=== PATIENT | male | born 1940 | race Caucasian/White ===

== ENCOUNTER 2018-06-18 01:00 | Outpatient (CLI) | payer OTHER, SELFPAY ==
--- NOTE | 2018-06-18 09:00 | DI.US_ITS ---
SYMPTOMS/DIAGNOSIS: H/O AAA REPAIR ULTRASOUND OF THE ABDOMINAL AORTA: Comparison is made with May,. Dilatation of the the [place] distal abdominal aorta measures maximally 4.3 cm, unchanged from the previous exam. 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 There is no evidence of rupture. IMPRESSION: Stable appearance of distal abdominal aortic aneurysm and endograft.
== END 2018-06-18 01:20 ==
PROVIDERS: PCP Family Medicine; Visit Provider Family Medicine
DX: I71.4 Abdominal aortic aneurysm, without rupture (principal); Z95.828 Presence of other vascular implants and grafts
CPT/HCPCS: 76775

== ENCOUNTER 2018-09-25 15:24 | Outpatient (CLI) | payer OTHER, SELFPAY ==
--- NOTE | 2018-09-25 12:00 | DI.RAD_ITS ---
SYMPTOMS/DIAGNOSIS: LOW BACK PAIN, RECENT FALLS, M54.5 LUMBAR SPINE: AP, lateral and bilateral oblique views. Most recent comparison examination of the lumbar spine is from a CT scan from 08/05/15. There is normal alignment of the lumbar spine. No spondylolysis or spondylolisthesis is seen. There are moderate degenerative changes seen at the lumbar spine with facet arthropathy and endplate osteophytes. There is a compression fracture deformity of the superior endplate of L 5 with loss of approximately 20% of the height of the vertebral body. This was not present on the examination from 2016. There is also compression fracture deformity involving the superior endplate of L 3 with loss of approximately 20% of the height which was not present on the prior examination. The acuity of these fractures is indeterminate. Vascular stent is seen in the distal aorta and iliac arteries. IMPRESSION: 1. Compression fracture deformities involving the superior endplates of L 3 and L 5. These were not present on the prior examination from 2016. If further imaging is warranted, an MRI should be considered for further evaluation. 2. Moderate degenerative changes in the lumbar spine.
== END 2018-09-25 15:44 ==
PROVIDERS: PCP Family Medicine; Visit Provider Family Medicine
DX: M54.5 Low back pain (principal); M48.56XD Collapsed vertebra, not elsewhere classified, lumbar region, subsequent encounter for fracture with routine healing; M47.816 Spondylosis without myelopathy or radiculopathy, lumbar region
CPT/HCPCS: 72110

== ENCOUNTER 2018-10-06 10:58 | Outpatient (CLI) | payer OTHER, SELFPAY ==
[2018-10-06 12:40] LABS: Abs Immature Grans 0.01 k/cumm (0.0-0.09); Absolute Basophil Count 0.02 k/cumm (0.0-0.2); Absolute Eosinophil Count 0.07 k/cumm (0.0-0.7); Absolute Lymphocyte Count 1.57 k/cumm (1.2-3.4); Absolute Monocyte Count 0.65 k/cumm (0.11-0.7); Absolute Neutrophil Count 4.94 k/cumm (1.2-6.7); Basophils % 0.3; HCT 39.6 % (40.0-50.0); HGB 13.1 g/dL (13.5-17.5); Immature Grans % 0.1; Lymphocytes % 21.6; Mean Corp. HGB Concentration 33.1 g/dL (32.0-36.0); Mean Corpuscular Hemoglobin 30.8 pg (27.0-33.0); Mean Platelet Volume 10.5 fL (8.0-11.0); Platelet Count 149 x1000/uL (130-400); RBC 4.26 m/cumm (4.50-6.00); RBC Distribution Width 14.1 % (11.8-14.1); White Blood Cell Count 7.26 k/cumm (4.4-10.8)
[2018-10-06 13:47] LABS: ALT 17 U/L (12-78); AST 15 U/L (15-37); Albumin 3.8 g/dL (3.4-5.0); Alkaline Phosphatase 124 U/L (46-116); Anion Gap 11.2 mmol/L (3-11); BUN 32 mg/dL (7-18); Bilirubin, Total 0.5 mg/dL (0.2-1.0); CO2 25.8 mmol/L (21.0-32.0); Calcium 9.2 mg/dL (8.5-10.1); Chloride 105 mmol/L (98-107); Estimated GFR 36.58 (mL/min/1.73m2); Glucose 97 mg/dL (70-100); Potassium 4.1 mmol/L (3.5-5.1); Sodium 142 mmol/L (136-145); TSH 1.99 uIU/mL (0.358-3.74); Total Protein 7.5 g/dL (6.4-8.2); Vitamin B12 457 pg/mL (193-986)
== END 2018-10-06 11:18 ==
PROVIDERS: PCP Family Medicine; Visit Provider Family Medicine
DX: R55 Syncope and collapse (principal); I10 Essential (primary) hypertension
CPT/HCPCS: 80053; 81003; 82607; 84443; 85025

== ENCOUNTER 2019-06-09 01:10 | Outpatient (CLI) | payer OTHER, SELFPAY ==
--- NOTE | 2019-06-09 08:57 | DI.US_ITS ---
EXAM: US AAA DIAGNOSTIC CLINICAL HISTORY: Z86.79 status post aaa repair 2015/pt asymptomatic, Z98.890 TECHNIQUE: Ultrasound performed using standard protocol. COMPARISON: CTA OF ABDOMEN AND PEL from 08/05/2015 AAA DIAGNOSTIC/FOLLOW UP from 05/31/2017 US AAA diagnostic from 06/18/2018 FINDINGS: The [place] vessel of the abdominal aorta was measured up to 4.2 cm. An endograft is again noted with diameter measuring 3.2 cm, not significantly changed. Iliac artery stents are also present, unchang ed, measuring 1.4 and 1.6 cm in diameter.. IMPRESSION: Stable appearance of bifurcated endograft and [place] abdominal aorta.
== END 2019-06-09 01:30 ==
PROVIDERS: PCP Family Medicine; Visit Provider Family Medicine
DX: Z86.79 Personal history of other diseases of the circulatory system (principal); Z95.828 Presence of other vascular implants and grafts
CPT/HCPCS: 76775

== ENCOUNTER 2019-08-29 12:08 | Inpatient (IN) | payer MEDICARE, OTHER, SELFPAY ==
[2019-08-29] VITALS (51 sets, daily range): BP systolic 135–197; BP diastolic 74–138; PULSE 75–89; RESP 14–27; TEMP 36.4–37.2; O2SAT 80–99
--- NOTE | 2019-08-29 12:15 | W.ED.GENAD ---
Discharge Plan Disposition Patient Disposition: [facility] INPATIENT Condition: Stable Discharge Details Chief Complaint: GenMedical Clinical Impression: Dizziness, Generalized weakness, Accelerated hypertension, Nausea Admit Date/Time: 08/29/19 17:31 Admit Provider: Lonnie Patton Attending Provider: Lonnie Patton Primary Care Provider: Amalia Villanueva ED Provider: Karla Goldstein Discharge Data Discharge Date/Time-TO BE ENTERED AT DEPARTURE: 08/29/19 18:45 Medical Decision Making 1245 -- 79-year-old male with a history of hypertension, hyperlipidemia, smoking presents for increasing weakness, frequent falls, nausea with dry heaving for the past few days. Patient states that he has had frequent falls and syncope for the past several months which initially was attributed to low blood pressure. Son states that removing patient's blood pressure medication initially improve the symptoms but now they have returned. He only takes Zocor and nabumetone for back pain. Patient also states that he is has had intermittent high and low blood pressure for the past few days. BP as high as 160/102. As low as ?/60. Patient states he has not had much of an appetite for the past few days. Son states that he has had strong smell of urine. Patient admits to anterior lower chest and upper abdominal pain after hitting his chest against a cabinet from a fall this week. He also admits to diffuse headache. He denies any extremity injury or pain. EKG on arrival notes a rate of 87, sinus with less than [address] depression in anterior lateral leads. No acute ST elevation. Able to find an old EKG from [facility] 2014 which noted normal sinus with no acute ST changes. Suspect patient dehydrated. Will obtain screening labs, CT head, neck, chest abdomen and pelvis to rule out acute fracture or abnormality. Will also obtain urinalysis, give fluids and a dose of Zofran. 1445 -- pt reassessed --states he feels slightly better. CT head and C-spine negative. Labs reviewed and no acute significant findings. Creatinine 2.06 at baseline. Troponin negative. Nursing attempted to ambulate patient earlier and he was significantly weak and requiring significant assistance. We will continue IV fluids and give a tray of food and reassess. CT chest and abdomen pending. 1545 -- CT chest and abdomen negative for acute findings. Attempted to ambulate patient and he complained of dizziness with movement. Will give a dose of meclizine and reassess. 1710 -- patient able to eat and attempted to ambulate and he was unable to get up due to weakness and dizziness. Will admit for observation, PT eval, and medication management of his blood pressure. 1725 -- discussed with hospitalist -accepts patient for admission. Medical Records Medical records reviewed: Yes I reviewed the patient's medical records. Imaging Data Radiologic Study: Radiologist's impression: CT Head Without Contrast Exam date and time: 08/29/2019 1:44 PM Age: 79 years old Clinical indication: Other: Headache, frequent falls, R/O acute findings TECHNIQUE: Imaging protocol: Computed tomography of the head without contrast. Radiation optimization: All CT scans at this facility use at least one of these dose optimization techniques: automated exposure control; mA and/or kV adjustment per patient size (includes targeted exams where dose is matched to clinical indication); or iterative reconstruction. COMPARISON: No relevant prior studies available. FINDINGS: Brain: No hemorrhage. No mass effect. No herniation. No abnormal extra-axial collection.There is mild diffuse heterogeneity of the white matter attenuation, consistent with chronic white matter ischemic changes. Ventricles: No ventriculomegaly. Bones/joints: No acute fracture. Sinuses: Visualized sinuses are unremarkable. No fluid levels. Mastoid air cells: Visualized mastoid air cells are well aerated. Soft tissues: Unremarkable. Vasculature: Atherosclerotic calcifications of the intracranial arteries. IMPRESSION: No acute intracranial abnormality. CT Cervical Spine Without Contrast Exam date and time: 08/29/2019 1:44 PM Age: 79 years old Clinical indication: Other: Headache, frequent falls, R/O acute findings TECHNIQUE: Imaging protocol: Computed tomography images of the cervical spine without contrast. Radiation optimization: All CT scans at this facility use at least one of these dose optimization techniques: automated exposure control; mA and/or kV adjustment per patient size (includes targeted exams where dose is matched to clinical indication); or iterative reconstruction. COMPARISON: No relevant prior studies available. FINDINGS: Vertebrae: No acute fracture. Normal alignment. Discs/Spinal canal/Neural foramina: Multilevel degenerative disc disease and facet hypertrophy of the cervical spine. No significant osseous spinal canal narrowing. There are multiple levels with significant neural foraminal osseous narrowing to include severe right C3-C4 and severe bilateral C5-C6. Soft tissues: Small benign appearing round calcification about the left vallecular. Likely related to some chronic process. Lungs: Lung apices are normal. IMPRESSION: 1. No acute findings. 2. Cervical spondylosis most severe at C3-C4 and C5-C6 with severe osseous neural foraminal narrowing as described above. CT Chest Without Contrast Exam date and time: 08/29/2019 1:50 PM Age: 79 years old Clinical indication: Other: S/P fall, b/l lower ribs/upper abd pain; Other: S/P fall, lower rib pain TECHNIQUE: Imaging protocol: Computed tomography of the chest without contrast. Radiation optimization: All CT scans at this facility use at least one of these dose optimization techniques: automated exposure control; mA and/or kV adjustment per patient size (includes targeted exams where dose is matched to clinical indication); or iterative reconstruction. COMPARISON: SC CHEST 2 VIEWS PA,LAT 06/01/2015 9:55 AM FINDINGS: Lungs: Mild panlobular emphysematous changes Subpleural interstitial densities may represent chronic lung changes. Moderate panlobular emphysematous changes Pleural space: Unremarkable. No pneumothorax. No pleural effusion. Heart: Coronary artery calcifications may indicate coronary artery disease. Aorta: Unremarkable. No aortic aneurysm. Lymph nodes: Unremarkable. No enlarged lymph nodes. Bones/joints: There may be mild compression fractures of the thoracic spine Soft tissues: Unremarkable. IMPRESSION: No acute process CT Abdomen And Pelvis Without Contrast Exam date and time: 08/29/2019 1:50 PM Age: 79 years old Clinical indication: Other: S/P fall, b/l lower ribs/upper abd pain; Other: S/P fall, lower rib pain TECHNIQUE: Imaging protocol: Computed tomography of the abdomen and pelvis without contrast. Radiation optimization: All CT scans at this facility use at least one of these dose optimization techniques: automated exposure control; mA and/or kV adjustment per patient size (includes targeted exams where dose is matched to clinical indication); or iterative reconstruction. COMPARISON: SC CHEST 2 VIEWS PA,LAT 06/01/2015 9:55 AM FINDINGS: Liver: 10 mm cyst left lobe of the liver Gallbladder and bile ducts: Normal. No calcified stones. No ductal dilation. Pancreas: Normal. No ductal dilation. Spleen: Normal. No splenomegaly. Adrenals: Normal. No mass. Kidneys and ureters: Normal. No hydronephrosis. Stomach and bowel: Unremarkable. No obstruction. No mucosal thickening. Appendix: Normal appendix Intraperitoneal space: Unremarkable. No free air. No significant fluid collection. Vasculature: Endovascular stent in the distal aorta and common iliac arteries. [place] aorta measures 3.3 x 3.5 cm.. Lymph nodes: Unremarkable. No enlarged lymph nodes. Bladder: Unremarkable as visualized. Reproductive: Unremarkable as visualized. Bones/joints: Broad-based disc bulge at L5/S1. Soft tissues: Unremarkable. IMPRESSION: 1. Endovascular stent in the distal aorta and common iliac arteries. [place] aorta measures 3.3 x 3.5 cm.. 2. Broad-based disc bulge at L5/S1. Recommend MRI if clinically indicated Lab Data Lab results reviewed: Yes I reviewed the patient's lab results. Labs: Laboratory Tests Range/Units 08/29/19 08/29/19 08/29/19 12:25 12:25 14:52 WBC (4.4-10.8) k/cumm 10.97 H RBC (4.50-6.00) m/cumm 4.27 L Hgb (13.5-17.5) g/dL 13.2 L Hct (40.0-50.0) % 38.3 L MCV (80-95) fL 89.7 MCH (27.0-33.0) pg 30.9 MCHC (32.0-36.0) g/dL 34.5 RDW (11.8-14.1) % 14.1 Plt Count (130-400) x1000/uL 129 L MPV (8.0-11.0) fL 10.0 Immature Gran % % 0.3 Neutrophils % 87.4 Lymphocytes % 6.8 Monocytes % 5.4 Eosinophils % 0.0 Basophils % 0.1 Absolute Neutrophils (1.2-6.7) k/cumm 9.59 H Absolute Lymphocytes (1.2-3.4) k/cumm 0.75 L Absolute Monocytes (0.11-0.7) k/cumm 0.59 Absolute Eosinophils (0.0-0.7) k/cumm 0.00 Absolute Basophils (0.0-0.2) k/cumm 0.01 Sodium (136-145) mmol/L 140 Potassium (3.5-5.1) mmol/L 4.3 Chloride (98-107) mmol/L 102 Carbon Dioxide (21.0-32.0) mmol/L 24.7 Anion Gap (3-11) mmol/L 13.3 H BUN (7-18) mg/dL 28 H Creatinine (0.70-1.30) mg/dL 2.06 H Estimated GFR/1.73 m2 (mL/min/1.73m2) 31.23 Glucose (74-106) mg/dL 129 H Calcium (8.5-10.1) mg/dL 8.7 Magnesium (1.8-2.4) mg/dL 2.1 Total Bilirubin (0.2-1.0) mg/dL 0.8 AST (15-37) U/L 23 ALT (16-63) U/L 17 Alkaline Phosphatase (46-116) U/L 122 H Troponin I (<0.06) ng/Ml < 0.05 Total Protein (6.4-8.2) g/dL 7.6 Albumin (3.4-5.0) g/dL 3.8 Urine Color (Yellow) Yellow Urine Clarity (Clear) Clear Urine pH (5-8) 6.0 Ur Specific [place] (1.005-1.025) >= 1.030 H Urine Protein (Negative) mg/dL 100 H Urine Ketones (Negative) mg/dL Negative Urine Blood (Negative) Moderate H Urine Nitrite (Negative) Negative Urine Bilirubin (Negative) Negative Urine Urobilinogen (Up TO 0.2) EU/dL 0.2 Ur Leukocyte Esterase (Negative) Negative Urine RBC (0-2) HPF 5-10 H Urine WBC (0-5) HPF 3-5 Ur Epithelial Cells (Negative) HPF Moderate Urine Crystals (Negative) HPF Negative Urine Bacteria (Negative) HPF Few Urine Casts (Negative) LPF 0-2 fine granular Urine Mucus (Negative) Negative Ur Culture Indicated? No/sq. contamination Urine Glucose (Negative) mg/dL 100 ECG Data Attestation: I personally reviewed and interpreted this ECG (s) as follows: Interpretation: Rate of 87, sinus, less than [address] depression noted in V4, V5 V6. No acute ST elevation. FL 160. QTc 420. QRS 80. HPI General Mode of arrival: EMS. Date/Time Provider Initiated Documentation: 08/29/19 12:29. Limitations to Documentation: other (Hard of hearing). Information obtained by: patient and family. History of Present Illness 79 year old M presents to the emergency department with the chief complaint of Generally weak, poor appetite, nausea/dry heaves, frequent falls, high BP, and is localized to the head. Patient reports no radiation. Patient started experiencing this day(s) (3) and it has been intermittent. No relieving factors improve symptom(s), Movement worsens symptoms . Patient notes headaches, loss of appetite, malaise, nausea/vomiting, syncope (Chronic) and weakness; denies rash, seizure and shortness of breath. Patient did receive the following treatments prior to arrival, none Related Data Home Medications Medication Instructions Recorded Confirmed simvastatin 10 mg tablet 10 mg PO HS #90 tab-cap 12/11/18 08/29/19 nabumetone 500 mg tablet 500 mg PO BID #60 tab 08/04/19 08/29/19 Previous Rx's Medication Instructions Recorded simvastatin 10 mg tablet 10 mg PO HS #90 tab-cap 12/11/18 nabumetone 500 mg tablet 500 mg PO BID #60 tab 08/04/19 Allergies Allergy/AdvReac Type Severity Reaction Status Date / Time Penicillins Allergy Intermediate HIVES Unverified 08/29/19 12:17 Review of Systems All systems reviewed & are unremarkable except as noted in HPI and below Constitutional Constitutional: Reports as per HPI, Denies chills, Denies fever(s), Reports frequent falls, Reports headache(s), Reports poor appetite and Reports weakness Eyes Eyes: Denies blurry vision ENT Ears, Nose, Mouth, and Throat: Denies dizziness, Reports headache(s), Denies sore throat and Denies throat swelling Cardiovascular Cardiovascular: Denies chest pain and Denies dyspnea Respiratory Respiratory: Denies cough and Denies dyspnea Gastrointestinal Gastrointestinal: Denies abdominal pain, Denies diarrhea, Reports nausea, Denies vomiting and Reports other (dry heaving) Genitourinary Genitourinary: Denies hematuria and Denies dysuria Musculoskeletal Musculoskeletal: Denies back pain and Denies numbness Integumentary/Breasts Skin/Breast: Denies lesions and Denies rash Neurologic Neurologic: Denies dizziness, Reports frequent falls, Reports headache(s), Denies focal weakness, Denies numbness and Reports weakness Allergic/Immunologic Allergic/Immunologic: Denies throat swelling [facility] Medical History (Updated 08/30/19 @ 00:12 by Lonnie Patton) CKD (chronic kidney disease) (Chronic) Essential hypertension (Inactive 09/25/13) Hyperlipidemia (Inactive 06/20/03) Smoker (Inactive) 50 year pack history Syncope (Chronic) Surgical History Extraction of cataract 10/2002 Status post AAA (abdominal aortic aneurysm) repair (Acute) Social History Smoking/Tobacco Use Status: Current every day Tobacco Type: cigarettes Tobacco: How many years used: 60 Quit status: not considering quitting Second Hand Exposure: Yes Alcohol Intake: never Caregiver/Support person: Yes Household members: other Details: Son Housing: house Communication Needs: Hard of Hearing Do you need help understanding health information?: Rarely Pets and animals: No Sexually active: No Do you think of yourself as: straight/heterosexual Current gender identity: male What is your relationship status?: How often do you talk on the phone with friends or family?: decline to answer How often do you get together with friends or relatives?: decline to answer How often do you attend voodoo or christian services?: decline to answer Do you belong to any clubs or organized social groups?: decline to answer Panel score (0-1 are the most socially isolated patients): 0 What type of physical activity do you participate in: none Frequency: does not exercise Carmen/Sikhism: No preference Special carmen needs: No Seatbelt use: always Drive 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 Exam Const General: cooperative, no acute distress and disheveled Orientation: alert and awake [facility] Head: normal to inspection, no palpable skull fracture, normocephalic and atraumatic Ears: hearing grossly normal bilaterally, external ears normal and TM's normal bilaterally General nose exam: external nose normal Face and sinus: normal facial exam Mouth: mucous membranes dry Teeth and gingiva: poor dentition Eyes General: appearance normal, both eyes and all related structures Eyelids: eyelids normal Pupils: PERRL EOM: EOM intact bilaterally Neck Neck: normal visual inspection Lymphatic: no lymphadenopathy noted Chest Chest: normal inspection of the chest Chest/axillae images: 1. Tenderness to palpation to midline and left inferior anterior chest. No crepitus, ecchymosis, erythema, edema, step-off, rash or lesions Resp Effort & Inspection: normal respiratory effort and able to speak in complete sentences Auscultation: clear to auscultation bilaterally Cardio Rate: regular rate Rhythm: regular rhythm GI Inspection: normal to inspection Palpation: soft, not firm, no guarding, no hepatosplenomegaly, no masses and tender in the epigastrum and in the LUQ Auscultation: hypoactive bowel sounds Back/Spine/Pelvis Cervical Spine: No cervical spinal tenderness Thoracic/Lumbar Spine: thoracic and lumbar spine normal to inspection, No thoracic spinal tenderness and No lumbar spinal tenderness Skin General skin exam: no rashes or lesions noted Neuro General: alert, awake, oriented x3 and other (Hard of hearing) Cognition: normal cognition Speech: speech normal Motor: muscle tone normal throughout Sensory Exam: no sensory deficits noted Extrem General: normal to inspection, full ROM and normal capillary refill Other: No pain in shoulders, elbows, wrists or hands, hips, knees or ankles with palpation or range of motion. Psych Appearance: grossly normal Mental Status: mental status grossly normal Speech and Movement: speech and movement normal Affect: normal affect Thought Process: normal
[2019-08-29 12:45] LABS: Abs Immature Grans 0.03 k/cumm (0.0-0.09); Absolute Basophil Count 0.01 k/cumm (0.0-0.2); Absolute Lymphocyte Count 0.75 k/cumm (1.2-3.4); Absolute Monocyte Count 0.59 k/cumm (0.11-0.7); Absolute Neutrophil Count 9.59 k/cumm (1.2-6.7); Basophils % 0.1; HCT 38.3 % (40.0-50.0); HGB 13.2 g/dL (13.5-17.5); Immature Grans % 0.3 %; Lymphocytes % 6.8; Mean Corp. HGB Concentration 34.5 g/dL (32.0-36.0); Mean Corpuscular Hemoglobin 30.9 pg (27.0-33.0); Mean Corpuscular Volume 89.7 fL (80-95); Monocytes % 5.4; Neutrophils % 87.4; Platelet Count 129 x1000/uL (130-400); RBC 4.27 m/cumm (4.50-6.00); RBC Distribution Width 14.1 % (11.8-14.1); White Blood Cell Count 10.97 k/cumm (4.4-10.8)
[2019-08-29 12:58] LABS: ALT 17 U/L (16-63); AST 23 U/L (15-37); Albumin 3.8 g/dL (3.4-5.0); Alkaline Phosphatase 122 U/L (46-116); Anion Gap 13.3 mmol/L (3-11); BUN 28 mg/dL (7-18); Bilirubin, Total 0.8 mg/dL (0.2-1.0); CO2 24.7 mmol/L (21.0-32.0); CREATININE 2.06 mg/dL (0.70-1.30); Calcium 8.7 mg/dL (8.5-10.1); Chloride 102 mmol/L (98-107); Estimated GFR 31.23 (mL/min/1.73m2); Glucose 129 mg/dL (74-106); Magnesium 2.1 mg/dL (1.8-2.4); Potassium 4.3 mmol/L (3.5-5.1); Sodium 140 mmol/L (136-145); Total Protein 7.6 g/dL (6.4-8.2)
[2019-08-29 13:02] LABS: Troponin I < 0.05 ng/Ml (<0.06)
[2019-08-29] MEDS: Normal Saline 500 ML IV ×2 (13:03→14:01)
[2019-08-29] MEDS: Ondansetron 4 MG/2 ML VIAL IVP (13:05)
--- NOTE | 2019-08-29 13:48 | DI.CT_ITS ---
EXAM: CT HEAD CERVICAL SPINE WO CT HEAD CERVICAL SPINE WO CLINICAL HISTORY: headache, frequent falls, r/o acute findings. headache, frequent falls, r/o acute findings TECHNIQUE: Imaging Protocol: Axial computed tomography images with coronal and sagittal reformatted images were created and reviewed COMPARISON: No exams were available for comparison FINDINGS: Head CT Ventricles and Extra axial spaces: Normal in size and morphology for the patient's age. Hemorrhage: None. Cerebral parenchyma: Normal. Midline shift: None. Brainstem/Cerebellum: Normal. Calvarium: Normal. Visualized Paranasal sinuses/Mastoids: Clear. IMPRESSION: No acute abnormality. FINDINGS: Cervical Spine CT BONES: Vertebral body heights are maintained. Intervertebral disc spaces are normal. Alignment is nor mal. There is no evidence of acute fracture. SOFT TISSUES: No paraspinal hematoma. The airway appears intact. Degenerative disc changes and facet degenerative changes are seen, greatest at C3-4 and C5-6 . IMPRESSION: Degenerative changes, no acute abnormality. DATA REPOSITORY: All CT scans at this facility are submitted to the National Radiology Data Registry (NRDR) Dose Index Registry (DIR) with the [employer] (ACR). RADIATION OPTIMIZATION: All CT scans at this facility use at least one of these dose optimization te chniques: automated exposure control; mA and/or kV adjustment per patient size (includes targeted exa ms where dose is matched to clinical indication); or iterative reconstruction.
--- NOTE | 2019-08-29 13:53 | DI.CT_ITS ---
EXAM: CT CHEST/ABD/PEL WO CLINICAL HISTORY: s/p fall, b/l lower ribs/upper abd pain TECHNIQUE: Without IV or oral contrast. COMPARISON: CTA OF ABDOMEN AND PEL from 08/05/2015 Lumbar Spine Complete from 09/25/2018 FINDINGS: Emphysematous and fibrotic changes are seen. There is honeycombing at the lung bases. There is no pneumothorax, pleural or pericardial effusions. Coronary artery calcifications are seen. The aorta is normal in diameter. No acute spine fractures are seen. There are mild compression deformities in the thoracic and lumbar spine. No rib fractures are identified. Aortoiliac stents are again noted within an aneurysm. There is no change in appearance or diameter. There is no free air or free fluid. There is no evidence of organ injury, bowel dilatation or wall thickening. The appendix appears normal. IMPRESSION: No acute posttraumatic abnormality.
[2019-08-29] MEDS: amLODIPine 5 MG TAB PO (14:01)
--- NOTE | 2019-08-29 14:55 | DI.VRAD_ITS ---
PROCEDURE INFORMATION: Exam: CT Head Without Contrast Exam date and time: 08/29/2019 1:44 PM Age: 79 years old Clinical indication: Other: Headache, frequent falls, R/O acute findings TECHNIQUE: Imaging protocol: Computed tomography of the head without contrast. Radiation optimization: All CT scans at this facility use at least one of these dose optimization techniques: automated exposure control; mA and/or kV adjustment per patient size (includes targeted exams where dose is matched to clinical indication); or iterative reconstruction. COMPARISON: No relevant prior studies available. FINDINGS: Brain: No hemorrhage. No mass effect. No herniation. No abnormal extra-axial collection.There is mild diffuse heterogeneity of the white matter attenuation, consistent with chronic white matter ischemic changes. Ventricles: No ventriculomegaly. Bones/joints: No acute fracture. Sinuses: Visualized sinuses are unremarkable. No fluid levels. Mastoid air cells: Visualized mastoid air cells are well aerated. Soft tissues: Unremarkable. Vasculature: Atherosclerotic calcifications of the intracranial arteries. IMPRESSION: No acute intracranial abnormality. PROCEDURE INFORMATION: Exam: CT Cervical Spine Without Contrast Exam date and time: 08/29/2019 1:44 PM Age: 79 years old Clinical indication: Other: Headache, frequent falls, R/O acute findings TECHNIQUE: Imaging protocol: Computed tomography images of the cervical spine without contrast. Radiation optimization: All CT scans at this facility use at least one of these dose optimization techniques: automated exposure control; mA and/or kV adjustment per patient size (includes targeted exams where dose is matched to clinical indication); or iterative reconstruction. COMPARISON: No relevant prior studies available. FINDINGS: Vertebrae: No acute fracture. Normal alignment. Discs/Spinal canal/Neural foramina: Multilevel degenerative disc disease and facet hypertrophy of the cervical spine. No significant osseous spinal canal narrowing. There are multiple levels with significant neural foraminal osseous narrowing to include severe right C3-C4 and severe bilateral C5-C6. Soft tissues: Small benign appearing round calcification about the left vallecular. Likely related to some chronic process. Lungs: Lung apices are normal. IMPRESSION: 1. No acute findings. 2. Cervical spondylosis most severe at C3-C4 and C5-C6 with severe osseous neural foraminal narrowing as described above. Dictated and Authenticated by: David White MD. Ordering:ELVIRA Acosta MD
[2019-08-29 15:00] LABS: Bilirubin Negative (Negative); Blood Moderate (Negative); Clarity Clear (Clear); Glucose 100 mg/dL (Negative); Ketones Negative (Negative); Leukocyte Esterase Negative (Negative); Nitrite Negative (Negative); Specific Gravity >= 1.030 (1.005-1.025); Urobilinogen 0.2 EU/dL (Up TO 0.2)
[2019-08-29] MEDS: Normal Saline 500 ML 1000 ML IV (15:11)
[2019-08-29 15:32] LABS: Bacteria Few HPF (Negative); C & S Indicated? No/Sq. Contamination; Casts 0-2 Fine Granular LPF (Negative); Crystals Negative HPF (Negative); Epithelial Cells Moderate HPF (Negative); Mucus Negative (Negative)
--- NOTE | 2019-08-29 15:36 | DI.VRAD_ITS ---
PROCEDURE INFORMATION: Exam: CT Chest Without Contrast Exam date and time: 08/29/2019 1:50 PM Age: 79 years old Clinical indication: Other: S/P fall, b/l lower ribs/upper abd pain; Other: S/P fall, lower rib pain TECHNIQUE: Imaging protocol: Computed tomography of the chest without contrast. Radiation optimization: All CT scans at this facility use at least one of these dose optimization techniques: automated exposure control; mA and/or kV adjustment per patient size (includes targeted exams where dose is matched to clinical indication); or iterative reconstruction. COMPARISON: SC CHEST 2 VIEWS PA,LAT 06/01/2015 9:55 AM FINDINGS: Lungs: Mild panlobular emphysematous changes Subpleural interstitial densities may represent chronic lung changes. Moderate panlobular emphysematous changes Pleural space: Unremarkable. No pneumothorax. No pleural effusion. Heart: Coronary artery calcifications may indicate coronary artery disease. Aorta: Unremarkable. No aortic aneurysm. Lymph nodes: Unremarkable. No enlarged lymph nodes. Bones/joints: There may be mild compression fractures of the thoracic spine Soft tissues: Unremarkable. IMPRESSION: No acute process PROCEDURE INFORMATION: Exam: CT Abdomen And Pelvis Without Contrast Exam date and time: 08/29/2019 1:50 PM Age: 79 years old Clinical indication: Other: S/P fall, b/l lower ribs/upper abd pain; Other: S/P fall, lower rib pain TECHNIQUE: Imaging protocol: Computed tomography of the abdomen and pelvis without contrast. Radiation optimization: All CT scans at this facility use at least one of these dose optimization techniques: automated exposure control; mA and/or kV adjustment per patient size (includes targeted exams where dose is matched to clinical indication); or iterative reconstruction. COMPARISON: SC CHEST 2 VIEWS PA,LAT 06/01/2015 9:55 AM FINDINGS: Liver: 10 mm cyst left lobe of the liver Gallbladder and bile ducts: Normal. No calcified stones. No ductal dilation. Pancreas: Normal. No ductal dilation. Spleen: Normal. No splenomegaly. Adrenals: Normal. No mass. Kidneys and ureters: Normal. No hydronephrosis. Stomach and bowel: Unremarkable. No obstruction. No mucosal thickening. Appendix: Normal appendix Intraperitoneal space: Unremarkable. No free air. No significant fluid collection. Vasculature: Endovascular stent in the distal aorta and common iliac arteries. [place] aorta measures 3.3 x 3.5 cm.. Lymph nodes: Unremarkable. No enlarged lymph nodes. Bladder: Unremarkable as visualized. Reproductive: Unremarkable as visualized. Bones/joints: Broad-based disc bulge at L5/S1. Soft tissues: Unremarkable. IMPRESSION: 1. Endovascular stent in the distal aorta and common iliac arteries. [place] aorta measures 3.3 x 3.5 cm.. 2. Broad-based disc bulge at L5/S1. Recommend MRI if clinically indicated Dictated and Authenticated by: Osmar Encarnacion MD. Ordering:ELVIRA Acosta MD
[2019-08-29] MEDS: Meclizine 25 MG TAB PO (15:53)
--- NOTE | 2019-08-29 16:32 | NUR.NOTE ---
15:35 Have attempted twice to ambulate patient. He sits on edge of bed and states he can't stand due to dizziness. MD aware and Meds given.
--- NOTE | 2019-08-29 17:30 | W.PM.HP.N ---
Date of service: 08/29/19 Time of Service: 17:30 Assessment and Plan Assessment and plan (1) Accelerated hypertension: Start date: 08/29/19 Status: Acute Assessment and plan: This is an 79-year-old gentleman who is here for generalized weakness and appetite loss with uncontrolled hypertension presently. He has no focalizing neurological findings other than nystagmus with probable vertigo and acute labyrinthitis as a cause of his symptoms. He is off his antihypertensives with frequent falls and fluctuating blood pressure in the recent past. This needs to be further evaluated but for now we will aggressively treat his hypertension which is persisted. This may be worsened by his discomfort but because of his presenting symptoms, we should consider MRI of the brain if his vertiginous symptoms persist with uncontrolled hypertension with possible CVA as cause of his presentation. This will be rediscussed in the morning. (2) Vertigo: Start date: 08/29/19 Status: Acute Assessment and plan: Patient appears to have nystagmus left lateral gaze and worsening sensation of the world spinning and falling to the left side as he moves prior to admission. This appears to be acute labyrinthitis of the pelvis uncontrolled hypertension and sudden onset of symptoms we should consider CVA with MRI to be rediscussed in the morning. For now we will support symptom control with meclizine and IV hydration because of his apparent recent decreased intake and fluid loss with nausea and dry heaving. (3) Nausea: Start date: 08/29/19 Status: Acute Assessment and plan: IV hydration with symptomatic care using IV Zofran. Patient does have chronic CKD which appears close to baseline but it appears slightly dry. (4) CKD (chronic kidney disease): Status: Chronic Assessment and plan: Patient is slightly higher than baseline and will have gentle IV hydration with close monitoring. We will start lisinopril for blood pressure control and watch renal function potassium closely. This may not be the best long-term medical therapy but acutely he has not responded to amlodipine alone and his heart rate is not markedly elevated with IV Lopressor to be used cautiously along with lisinopril dose given tonight and each evening if chosen to be continued. Qualifiers: Chronic kidney disease stage: stage 3 (moderate) Qualified Code(s): N18.3 - Chronic kidney disease, stage 3 (moderate) History of Present Illness History of Present Illness Chief Complaint: Dizziness with nausea and vomiting, uncontrolled blood pressure off meds Narrative: This is an 79-year-old male patient who has had problems with falls in the recent months having stopped his antihypertensives because of low blood pressure and slow heart rate. He began to have generalized weakness decreased appetite with nausea and dry heaves and feeling as if he was going to fall whenever he would move suddenly as if the world was spinning. He has had vertigo in the past but he describes it as a 1 day of occurrence where he would fall to one side. He has never had any documented CVAs by history. He denies any fever or diarrhea with his recent GI symptoms. Off his antihypertensive the last couple days he states his blood pressure has been all over the place. He would be high at one time and then low at another with no medications as mentioned. He had no other focalizing neurologic complaints other than vertigo and it seemed to be worse gazing to the left side. Denying chest pain or palpitations. He is hard of hearing. Review of Systems Narrative: 13 point review of systems otherwise unrevealing or overall stable. Patient has had no significant weight loss. [facility]LY [facility] Medical History Essential hypertension (Inactive 09/25/13) Hyperlipidemia (Inactive 06/20/03) Smoker (Inactive) 50 year pack history Syncope (Chronic) Surgical History Extraction of cataract 10/2002 Status post AAA (abdominal aortic aneurysm) repair (Acute) Social History Smoking/Tobacco Use Status: Current every day Tobacco Type: cigarettes Tobacco: How many years used: 60 Quit status: not considering quitting Second Hand Exposure: Yes Alcohol Intake: never Caregiver/Support person: Yes Household members: other Details: Son Housing: house Communication Needs: Hard of Hearing Do you need help understanding health information?: Rarely Pets and animals: No Sexually active: No Do you think of yourself as: straight/heterosexual Current gender identity: male What is your relationship status?: How often do you talk on the phone with friends or family?: decline to answer How often do you get together with friends or relatives?: decline to answer How often do you attend druze or mandaeism services?: decline to answer Do you belong to any clubs or organized social groups?: decline to answer Panel score (0-1 are the most socially isolated patients): 0 What type of physical activity do you participate in: none Frequency: does not exercise Carmen/Yazidism: No preference Special carmen needs: No Seatbelt use: always Drive intox or ride w/intox 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 He appears to be alert and oriented at least to person place. He is in no acute distress when lying still. HEENT: Normocephalic, eyes with pupils equal and reactive light symmetrically, extraocular movement intact and sclera anicteric. Gaze to the far left results in nystagmus with fast beat toward the left. Oropharynx with slightly dry oral mucosa. External ears normal. Neck: Supple without JVD. Back: Stooped posture with no CVA tenderness. Loss of lordotic curve. Lungs: Fair aeration with no focalizing rales or rhonchi. Heart: Regular rate and rhythm no appreciable murmurs or gallops. Heart sounds are distant. Chest: Movement symmetrical with no tenderness palpation. Abdomen: Normal contour, soft and nontender to palpation with no palpable hepatosplenomegaly. Bowel sounds positive all quadrants. Genitalia/rectal: Exam deferred. Extremities: Slight nonpitting edema both lower extremities with loss of hair and no hyperpigmentation or ulcers. No clubbing or cyanosis. Peripheral pulses intact. All joints have fair range of motion. Skin: Pale, warm and dry. Normal turgor. Neuro: Cranial nerves II through XII grossly intact with decreased hearing acuity bilaterally, no focalizing motor deficits. Psych: Normal mood and thought processes, remote and recent memory appear to be grossly intact. Results Imaging Imaging Studies: Exam: CT Chest Without Contrast Exam date and time: 08/29/2019 1:50 PM Age: 79 years old Clinical indication: Other: S/P fall, b/l lower ribs/upper abd pain; Other: S/P fall, lower rib pain TECHNIQUE: Imaging protocol: Computed tomography of the chest without contrast. Radiation optimization: All CT scans at this facility use at least one of these dose optimization techniques: automated exposure control; mA and/or kV adjustment per patient size (includes targeted exams where dose is matched to clinical indication); or iterative reconstruction. COMPARISON: GA CHEST 2 VIEWS PA,LAT 06/01/2015 9:55 AM FINDINGS: Lungs: Mild panlobular emphysematous changes Subpleural interstitial densities may represent chronic lung changes. Moderate panlobular emphysematous changes Pleural space: Unremarkable. No pneumothorax. No pleural effusion. Heart: Coronary artery calcifications may indicate coronary artery disease. Aorta: Unremarkable. No aortic aneurysm. Lymph nodes: Unremarkable. No enlarged lymph nodes. Bones/joints: There may be mild compression fractures of the thoracic spine Soft tissues: Unremarkable. IMPRESSION: No acute process PROCEDURE INFORMATION: Exam: CT Abdomen And Pelvis Without Contrast Exam date and time: 08/29/2019 1:50 PM Age: 79 years old Clinical indication: Other: S/P fall, b/l lower ribs/upper abd pain; Other: S/P fall, lower rib pain TECHNIQUE: Imaging protocol: Computed tomography of the abdomen and pelvis without contrast. Radiation optimization: All CT scans at this facility use at least one of these dose optimization techniques: automated exposure control; mA and/or kV adjustment per patient size (includes targeted exams where dose is matched to clinical indication); or iterative reconstruction. COMPARISON: GA CHEST 2 VIEWS PA,LAT 06/01/2015 9:55 AM FINDINGS: Liver: 10 mm cyst left lobe of the liver Gallbladder and bile ducts: Normal. No calcified stones. No ductal dilation. Pancreas: Normal. No ductal dilation. Spleen: Normal. No splenomegaly. Adrenals: Normal. No mass. Kidneys and ureters: Normal. No hydronephrosis. Stomach and bowel: Unremarkable. No obstruction. No mucosal thickening. Appendix: Normal appendix Intraperitoneal space: Unremarkable. No free air. No significant fluid collection. Vasculature: Endovascular stent in the distal aorta and common iliac arteries. [place] aorta measures 3.3 x 3.5 cm.. Lymph nodes: Unremarkable. No enlarged lymph nodes. Bladder: Unremarkable as visualized. Reproductive: Unremarkable as visualized. Bones/joints: Broad-based disc bulge at L5/S1. Soft tissues: Unremarkable. IMPRESSION: 1. Endovascular stent in the distal aorta and common iliac arteries. [place] aorta measures 3.3 x 3.5 cm.. 2. Broad-based disc bulge at L5/S1. Recommend MRI if clinically indicated Dictated and Authenticated by: Osmar Encarnacion MD. Labs Result diagrams: 08/29/19 12:25 08/29/19 12:25 Labs: Laboratory Results - last 24 hr 08/29/19 08/29/19 08/29/19 12:25 12:25 14:52 WBC 10.97 H RBC 4.27 L Hgb 13.2 L Hct 38.3 L MCV 89.7 MCH 30.9 MCHC 34.5 RDW 14.1 Plt Count 129 L MPV 10.0 Immature Gran % 0.3 Neutrophils % 87.4 Lymphocytes % 6.8 Monocytes % 5.4 Eosinophils % 0.0 Basophils % 0.1 Absolute Neutrophils 9.59 H Absolute Lymphocytes 0.75 L Absolute Monocytes 0.59 Absolute Eosinophils 0.00 Absolute Basophils 0.01 Sodium 140 Potassium 4.3 Chloride 102 Carbon Dioxide 24.7 Anion Gap 13.3 H BUN 28 H Creatinine 2.06 H Estimated GFR/1.73 m2 31.23 Glucose 129 H Calcium 8.7 Magnesium 2.1 Total Bilirubin 0.8 AST 23 ALT 17 Alkaline Phosphatase 122 H Troponin I < 0.05 Total Protein 7.6 Albumin 3.8 Urine Color Yellow Urine Clarity Clear Urine pH 6.0 Ur Specific [place] >= 1.030 H Urine Protein 100 H Urine Ketones Negative Urine Blood Moderate H Urine Nitrite Negative Urine Bilirubin Negative Urine Urobilinogen 0.2 Ur Leukocyte Esterase Negative Urine RBC 5-10 H Urine WBC 3-5 Ur Epithelial Cells Moderate Urine Crystals Negative Urine Bacteria Few Urine Casts 0-2 fine granular Urine Mucus Negative Ur Culture Indicated? No/sq. contamination Urine Glucose 100 Last Vital Signs Temp 36.7 C 08/29/19 12:08 Pulse 75 08/29/19 17:01 Resp 17 08/29/19 13:32 BP 172/83 H 08/29/19 17:01 Pulse Ox 98 08/29/19 16:47
[2019-08-29 20:47] LABS: TSH (W/Ref FT4) 0.69 uIU/mL (0.36-3.74)
[2019-08-29] MEDS: Normal Saline Flush 10 ML SYR (22:19)
[2019-08-29] MEDS: Simvastatin 10 MG TAB PO (22:19)
[2019-08-29] MEDS: Lisinopril 10 MG TAB PO (23:21)
[2019-08-30] VITALS (9 sets, daily range): BP systolic 122–185; BP diastolic 65–89; PULSE 52–76; RESP 18–19; TEMP 36–37.2; O2SAT 96–98
[2019-08-30] MEDS: Normal Saline 1,000 ML 125 ML IV (06:33)
[2019-08-30 06:37] LABS: HCT 33.1 % (40.0-50.0); HGB 10.9 g/dL (13.5-17.5); Mean Corp. HGB Concentration 32.9 g/dL (32.0-36.0); Mean Corpuscular Hemoglobin 30.2 pg (27.0-33.0); Mean Corpuscular Volume 91.7 fL (80-95); Mean Platelet Volume 9.9 fL (8.0-11.0); Platelet Count 102 x1000/uL (130-400); RBC 3.61 m/cumm (4.50-6.00); RBC Distribution Width 14.4 % (11.8-14.1); White Blood Cell Count 7.85 k/cumm (4.4-10.8)
[2019-08-30 06:52] LABS: ALT 20 U/L (16-63); AST 26 U/L (15-37); Alkaline Phosphatase 95 U/L (46-116); Anion Gap 9.5 mmol/L (3-11); BUN 26 mg/dL (7-18); Bilirubin, Total 0.7 mg/dL (0.2-1.0); CO2 25.5 mmol/L (21.0-32.0); CREATININE 1.71 mg/dL (0.70-1.30); Calcium 7.9 mg/dL (8.5-10.1); Chloride 107 mmol/L (98-107); Estimated GFR 38.71 (mL/min/1.73m2); Glucose 85 mg/dL (74-106); Potassium 3.5 mmol/L (3.5-5.1); Sodium 142 mmol/L (136-145); Total Protein 5.9 g/dL (6.4-8.2)
[2019-08-30] MEDS: amLODIPine 5 MG TAB PO (08:36)
--- NOTE | 2019-08-30 08:48 | PDOC.CMIN ---
- If Service Date Differs Date of service: 08/30/19 Time of Service: 08:48 Care Management Initial Assess REASON FOR HOSPITALIZATION:: Uncontrolled dizziness with accelerated HTN PAST MEDICAL HISTORY/PAST SURGICAL HISTORY:: CKD, hearing loss, syncope, actinic keratosis,status post AAA repair, and cataract repair. PREVIOUS FUNCTIONAL STATUS/SOCIAL/FAMILY SUPPORTS:: Kevin lives with his son Golden in [place], [place]. Kevin uses a FWW for ambulation, he is able to cook his meals and perform his ADL's. He does have a history of confusion at night and per his son he has night terrors. Son Golden does not want his father to be told that he shared what has been happening at home prior to admission. CURRENT FUNCTIONAL STATUS:: Kevin is asleep when CM enters the room. His son Golden is present and was able to answer questions related to history and events leading to admission. Per Golden Brown has had frequent falls at home, and ongoing dizzy spells. He states he is shakey and at times appears to have pill rolling. ADVANCE DIRECTIVES:: DPOA on file Golden (son) is agent Has patient been provided with information about the portal?: Yes Did the patient sign up for the portal?: No CODE STATUS:: Full Code INSURANCE COVERAGE / FINANCIAL ISSUES:: Medicare/[employer] CURRENT HOME/COMMUNITY SERVICES/EQUIPMENT:: FWW and his son lives with him fulltime PRIMARY CARE PHYSICIAN:: POTENTIAL DISCHARGE NEEDS:: Follow up with primary care scheduled prior to discharge PATIENT/FAMILY EDUCATION NEEDS:: Discharge education, limitations and follow up plan of care including ask me three and self mangement. ANTICIPATED BARRIERS TO DISCHARGE:: None TRANSPORTATION:: Via private car with family at time of discharge. PLAN:: Kevin will be discharged home when medically ready with his family. He has a PT consult in place, anticipate no addtional services at time of discharge pending PT recomendations. CM will continue to provide support and assessment for discharge needs.
--- NOTE | 2019-08-30 10:35 | PHARADMIT ---
Addendum entered by Dominga Barba 09/01/19 14:14: Pharmacy Note Subjective parkinsons meds going to be titrated per neurology, son is noting improvement Objective MRA/MRI negative , BP 184/91 Assessment IVF stopped. Sinemet started and quetiapine, psychiatrist in am meeting suggested trying trazodone instead. no heparin or enoxparin due to thrombocytopenia Plan continue to watch VS, labs and for med changes. Addendum entered by Laura Patel 08/31/19 17:04: Pharmacy Note Subjective MRI and MRA ordered for today, neuro consult Objective BP-135/76 other VS-okay Cl-108 SCr-1.78(up) Assessment may start anti-parkinson's meds, pt reluctant to start per progress note Plan continue to watch VS, labs and for med changes. Original Note: Admission Pharmacy Clinical Review UNCONTROLLED HYPERTENSION, DIZZY, NAUSEA Code Status Full Code Current Weight 71.4 kg Renally Cleared and Narrow Therapeutic Index Meds CrCl~33ml/min QTc Value / Action Taken QTC 428 BP Control, Fever BP 122/65 now (Admission: 196/97) HR good Electrolytes reviewed K+ 3.5 (30meq po x1) Mag 2.1 DVT Prophylaxis Heparin SC-refusing, no ASA ordered, MD aware Opiate Usage / Scheduled Bowel Regimen Ordered none Plt/SCr for Heparin / Enoxaparin Plt 102 SCr 1.71 INR for Warfarin H/H stable, WBC/Bands H/H 10.9/33.1 WBC 7.85 Antibiotic appropriateness n/a Cultures and Sensitivities n/a Surgical ABX d/c within 24 hr DM control / Insulin Dosing BG 85 Heart Failure (Check EF%) (JORGE LUIS's, B-Block, Diuretics) Amlodipine, Lisinopril, Metoprolol IVP prn w/parameters IV to PO Switch Home Meds Reviewed Home Meds Not Ordered Nabumetone Comments Meclizine prn MRI Saturday to rule out cerebellular stroke
[2019-08-30] MEDS: POTASSIUM CHLORIDE 20 MEQ, POTASSIUM CHLORIDE 10 MEQ 30 MEQ PO (10:59)
--- NOTE | 2019-08-30 12:52 | PT.INIE ---
Date of service: 08/30/19 Time of Service: 11:45 PT Notes Visit Reasons: UNCONTROLLED HTN, DIZZINESS WITH NAUSEA Inpatient Physical Therapy Evaluation Date: August 30, 2019 Referring Doctor: Kodi Louie PT Orders: PT CONSULT: Fall safety assessment Precautions: Fall risk Patient Profile/Admitting Diagnosis: Patient is an 79-year-old male admitted to [facility] on August 29, 2019 secondary to generalized weakness, dizziness, vomiting and nausea. Questionable cerebellar dysfunction, MRI pending on August 31, 2019. PMHX: Uncontrolled hypertension (off medication), chronic kidney disease, hyperlipidemia, multisegmental cervical spine stenosis Medical History Essential hypertension (Inactive 09/25/13) Hyperlipidemia (Inactive 06/20/03) Smoker (Inactive) 50 year pack history Syncope (Chronic) Surgical History Extraction of cataract 10/2002 Status post AAA (abdominal aortic aneurysm) repair (Acute) Social History/Home Situation: Patient lives in a single level home with his son with 2 stairs into the dwelling with railing. Current Functional Limitations: Decreased ability to perform independent transfers sit to stand, standing and ambulation secondary to nauseousness Equipment Owned/DME: Front wheeled walker. Patient reports that he is been using it more regularly as of late secondary to fall risk. Notices better stability when he uses his walker. Subjective: Patient states that he is still feeling nauseousness. Did not vomit this morning but had bouts of vomiting yesterday. Reports that he really does not want do any walking secondary to his nausea. Objective: Patient lying in bed with head of bed at 40 degrees. Just finished lunch. Is resting comfortably. At start of initial evaluation reports no nausea. As per report with nursing there is suspicion of orthostatic hypotension. IV placed in the antecubital fossa on right upper extremity. On telemetry. General Observation: No acute distress. Resting comfortably in bed. Agreeable to evaluation Mental Status: Alert and orientated x3 Pain: 0/10. Does report a history of right shoulder pain secondary to chronic rotator cuff injury. 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 Vital Signs: Refer to nursing ROM: Right Upper Extremity: 90 degrees active flexion and scapular plane abduction, active assisted to 140. Elbow flexion extension within normal limits, forearm supination and pronation and wrist flexion extension within functional limits pain-free Left Upper Extremity: Within functional limits Right Lower Extremity: Within functional limits Left Lower Extremity: Within functional limits Cervical spine active range of motion limited in articular pattern in all planes. Strength: Right Upper Extremity: 3-/5 glenohumeral joint flexion and abduction, 4/5 bicep tricep. 4/5 bridal gown fitter. 3/5 external rotation 4/5 internal rotation Left Upper Extremity: 4/5 throughout glenohumeral joint flexion, abduction, internal and external rotation, bicep and tricep. 4/5 bridal gown fitter. Right Lower Extremity: 4+/5 throughout hip flexion, seated AB and adduction. Patient perform straight leg raise with 0 degree lag. 4+/5 quads 4/5 hamstring. Ankle dorsiflexion and plantar flexion 4+/5. Great toe extension 4+/5 Left Lower Extremity: 4+/5 hip flexion, AB and adduction. Straight leg raise 0 degree lag. 4+/5 quads, 4/5 hamstring. Ankle dorsiflexion and plantarflexion 4+/5. Great toe extension 4+/5 Sensation: Patient reports intact sensation throughout bilateral upper and lower extremities. DTRs not assessed. Patient is able to approximate fingertip to nose left and right with accuracy. Also able to perform heel aaron rub. Alternating supination pronation within normal limits. Bed Mobility/Transfers: Supine to sit: Min assist x1 head of bed 40 degrees Sit to supine: Standby assist x1 Sit to stand: Mod assist x1 with complaints of nausea. Stood 10 seconds prior to requesting to return to laying down position secondary to nausea. Stand up front wheeled walker Bed mobility: Standby assist stand Stand to sit: min assist x1 Gait: Not tested. Patient refused secondary to nausea. Balance: Static Sitting: Good Dynamic Sitting: Good Static Standing: Poor secondary to nausea Dynamic Standing: Poor secondary to nausea Special Tests: Mobility Limitations Standardized Measure [facility]-PAC 6 clicks Basic Mobility Inpatient Short Form: Raw Score: 15 Standardized Score: 39.45 CMS Score: 57.7% CMS Modifier: CK Informed Consent/Education: Patient instructed in purpose of PT consult and plan of care. Assessment: Patient is a 79 year old [id number] male referred to physical therapy services with the diagnosis of questionable cerebellar dysfunction. Patient presents with clinical signs and symptoms consistent with above diagnosis, as demonstrated by the following impairment level findings: Motor control, muscle performance, range of motion associated with neurological condition. No significant myotomal dermatomal discrepancies noted in bilateral upper or lower extremities. Coordination tests were within normal limits for heel aaron rub, alternating supination pronation and [id number] touch. Impairments are contributing to the following functional limitations: Standing, walking, bed mobility. Patient is a fall risk as he has a history of multiple falls in the past. Does require for front wheeled walker for ambulation which he uses at home prior to admittance into the hospital. Due to his nausea patient refused his ambulation today. Conversation with nursing indicated the is some orthostatic hypotension issues with the patient. AMPAC score 57.7%. Patient is assessed as a [] Low 52986 X Moderate 39607 [] High 90363 complexity based on the following: History: See above Examination: See above Presentation: Evolving Decision Making: Moderate Goals: Goals X1 week 1. Supine-Sit: independent 2. Sit-Supine: Independent 3. Sit-Stand: Standby assist to front wheel walker 4. Stand-Sit: Standby assist from front wheeled walker 5. Bed-Chair: Standby assist with front wheeled walker 6. Chair-Bed: Standby assist with front wheeled walker 7. Gait : 200 feet with front wheeled walker standby assist 8. Balance: good static sitting and standing balance. Plan of Care/Treatment Plan: 1-2x/day, 7 days/week x 1 week. Plan of care has been reviewed with the MENAGERIE CARETAKER providing the service under Physical Therapy direction. Initiate Physical Therapy intervention for strengthening, bed mobility, transfers, gait, stairs, balance training, use of assistive device. DISCHARGE RECOMMENDATIONS: [facility] facility upon discharge from [facility] TREATMENT CODE/TIME: Initial evaluation [id number] for 30 minutes of care 11 45-12:15 PLAN: Patient to continue treatment, daily , for one week, adjusting frequency of visits per patient symptoms and response to treatment. We will incorporate bilateral lower extremity strengthening, gait training and balance training activities. Will utilize a front wheeled walker for ambulation. Consider Vitor maneuver to rule out BPPV following MRI. Disclaimer: This note was created using [employer] voice recognition software. It was reviewed for major content. However, there may be multiple small discrepancies and errors due to the voice recognition aspects of the software.
--- NOTE | 2019-08-30 15:16 | W.PM.PROGNOT ---
Date of Service Date of service: 08/30/19 Time of Service: 15:16 Assessment and Plan Assessment and plan (1) Cerebellar dysfunction: Status: Acute Assessment and plan: Patient appears to have some cerebellar dysfunction. I suspect that there is small vessel disease. He does have a history of C3-C4-C5-C6 foraminal narrowing which could be playing a role in the blood supply to his brain. We will check an MRI of the brain with angiography and an MRI of the brain. Were looking specifically at the cerebellum for an infarct. There is still a possibility this is benign positional vertigo or related to vestibular causes. Continue with physical therapy/Occupational Therapy. Start aspirin therapy 81 mg daily. Check lipid, hemoglobin A1c. (2) Nausea: Status: Acute Assessment and plan: Continue PRN antiemetics. (3) Generalized weakness: Status: Acute Assessment and plan: Overall weakness has improved with IV fluids. We will try him on a regular diet. Decreased fluids to 75 cc an hour, Subjective Subjective Interval history since last seen: Patient was admitted overnight with progressive weakness and dizziness particularly with ambulating. He had been having episodes of nausea with this dizziness and therefore had stopped his medications. He received IV fluids overnight which seemed to make his overall symptoms feel better until he was tried standing and ambulating. He immediately became extremely dizzy and unstable as well as developing some nausea. He wanted to lie down immediately. Exam Narrative Exam Narrative: On exam he is somewhat disheveled and quite hard of hearing. When lying quietly he denied any significant discomfort or dizziness. Any movement seem to bring on a certain amount of dizziness. He had no resting tremor or evident weakness in his upper or lower extremities. His lung sounds were clear on the right and left heart sounds regular abdomen nontender the lower extremities showed no evidence of edema and appeared well perfused. Objective Objective Clinical Data: Abnormal lab results 08/29/19 08/30/19 08/30/19 Range/Units 14:52 06:15 06:15 RBC 3.61 L (4.50-6.00) m/cumm Hgb 10.9 L D (13.5-17.5) g/dL Hct 33.1 L (40.0-50.0) % RDW 14.4 H (11.8-14.1) % Plt Count 102 L (130-400) x1000/uL BUN 26 H (7-18) mg/dL Creatinine 1.71 H (0.70-1.30) mg/dL Calcium 7.9 L (8.5-10.1) mg/dL Total Protein 5.9 L (6.4-8.2) g/dL Albumin 3.0 L (3.4-5.0) g/dL Urine RBC 5-10 H (0-2) HPF Vital Signs Temperature 36.6 C 08/30/19 07:50 Temperature Source Tympanic 08/30/19 07:50 Pulse 76 08/30/19 08:00 Pulse Rhythm Regular 08/30/19 09:00 Pulse 81 08/29/19 13:32 Respiratory Rate 18 08/30/19 07:50 Respiratory Effort Non-Labored 08/30/19 09:00 Respiratory Depth Normal 08/30/19 09:00 Respiratory Pattern Normal 08/30/19 09:00 Blood Pressure 160/80 H 08/30/19 09:00 Blood Pressure Mean 106 08/29/19 17:01 Blood Pressure Position Supine 08/29/19 12:08 Pulse Oximetry 98 08/30/19 08:00 Oxygen Delivery Method Room Air 08/30/19 08:00 Oxygen Flow Rate 0 08/30/19 08:00 Pain Level 0 08/30/19 03:45 Intake & Output 08/29/19 08/30/19 08/30/19 23:59 11:59 23:59 Intake Total 1500 / 1500 554.167 / 794.167 240 / 794.167 Output Total 600 / 600 Balance 1500 / 1500 -45.833 / 194.167 240 / 194.167 Weight 74.2 kg 71.4 kg Intake: IV 1500 / 1500 554.167 / 554.167 Oral 240 / 240 Output: Urine 600 / 600 Other: Urine Color Yellow Urine Appearance Clear Urine Odor Normal Voiding Methods Urinal Laboratory Results WBC 7.85 k/cumm (4.4-10.8) 08/30/19 06:15 RBC 3.61 m/cumm (4.50-6.00) L 08/30/19 06:15 Hgb 10.9 g/dL (13.5-17.5) L D 08/30/19 06:15 Hct 33.1 % (40.0-50.0) L 08/30/19 06:15 MCV 91.7 fL (80-95) 08/30/19 06:15 MCH 30.2 pg (27.0-33.0) 08/30/19 06:15 MCHC 32.9 g/dL (32.0-36.0) 08/30/19 06:15 RDW 14.4 % (11.8-14.1) H 08/30/19 06:15 Plt Count 102 x1000/uL (130-400) L 08/30/19 06:15 MPV 9.9 fL (8.0-11.0) 08/30/19 06:15 Immature Gran % 0.3 % 08/29/19 12:25 Neutrophils % 87.4 08/29/19 12:25 Lymphocytes % 6.8 08/29/19 12:25 Monocytes % 5.4 08/29/19 12:25 Eosinophils % 0.0 08/29/19 12:25 Basophils % 0.1 08/29/19 12:25 Absolute Neutrophils 9.59 k/cumm (1.2-6.7) H 08/29/19 12:25 Absolute Lymphocytes 0.75 k/cumm (1.2-3.4) L 08/29/19 12:25 Absolute Monocytes 0.59 k/cumm (0.11-0.7) 08/29/19 12:25 Absolute Eosinophils 0.00 k/cumm (0.0-0.7) 08/29/19 12:25 Absolute Basophils 0.01 k/cumm (0.0-0.2) 08/29/19 12:25 Sodium 142 mmol/L (136-145) 08/30/19 06:15 Potassium 3.5 mmol/L (3.5-5.1) 08/30/19 06:15 Chloride 107 mmol/L (98-107) 08/30/19 06:15 Carbon Dioxide 25.5 mmol/L (21.0-32.0) 08/30/19 06:15 Anion Gap 9.5 mmol/L (3-11) 08/30/19 06:15 BUN 26 mg/dL (7-18) H 08/30/19 06:15 Creatinine 1.71 mg/dL (0.70-1.30) H 08/30/19 06:15 Estimated GFR/1.73 m2 38.71 (mL/min/1.73m2) 08/30/19 06:15 Glucose 85 mg/dL (74-106) 08/30/19 06:15 Calcium 7.9 mg/dL (8.5-10.1) L 08/30/19 06:15 Magnesium 2.1 mg/dL (1.8-2.4) 08/29/19 12:25 Total Bilirubin 0.7 mg/dL (0.2-1.0) 08/30/19 06:15 AST 26 U/L (15-37) 08/30/19 06:15 ALT 20 U/L (16-63) 08/30/19 06:15 Alkaline Phosphatase 95 U/L (46-116) 08/30/19 06:15 Troponin I < 0.05 ng/Ml (<0.06) 08/29/19 12:25 Total Protein 5.9 g/dL (6.4-8.2) L 08/30/19 06:15 Albumin 3.0 g/dL (3.4-5.0) L 08/30/19 06:15 TSH 0.69 uIU/mL (0.36-3.74) 08/29/19 20:12 Urine Color Yellow (Yellow) 08/29/19 14:52 Urine Clarity Clear (Clear) 08/29/19 14:52 Urine pH 6.0 (5-8) 08/29/19 14:52 Ur Specific [place] >= 1.030 (1.005-1.025) H 08/29/19 14:52 Urine Protein 100 mg/dL (Negative) H 08/29/19 14:52 Urine Ketones Negative mg/dL (Negative) 08/29/19 14:52 Urine Blood Moderate (Negative) H 08/29/19 14:52 Urine Nitrite Negative (Negative) 08/29/19 14:52 Urine Bilirubin Negative (Negative) 08/29/19 14:52 Urine Urobilinogen 0.2 EU/dL (Up TO 0.2) 08/29/19 14:52 Ur Leukocyte Esterase Negative (Negative) 08/29/19 14:52 Urine RBC 5-10 HPF (0-2) H 08/29/19 14:52 Urine WBC 3-5 HPF (0-5) 08/29/19 14:52 Ur Epithelial Cells Moderate HPF (Negative) 08/29/19 14:52 Urine Crystals Negative HPF (Negative) 08/29/19 14:52 Urine Bacteria Few HPF (Negative) 08/29/19 14:52 Urine Casts 0-2 fine granular LPF (Negative) 08/29/19 14:52 Urine Mucus Negative (Negative) 08/29/19 14:52 Ur Culture Indicated? No/sq. contamination 08/29/19 14:52 Urine Glucose 100 mg/dL (Negative) 08/29/19 14:52
[2019-08-30] MEDS: Normal Saline 1,000 ML 75 ML IV (16:56)
[2019-08-30] MEDS: Aspirin E.C. 81 MG TABEC PO (17:33)
[2019-08-30] MEDS: Simvastatin 10 MG TAB PO (21:59)
[2019-08-30] MEDS: Lisinopril 5 MG TAB 10 MG PO (21:59)
[2019-08-31 03:48] VITALS: BP 159/81; PULSE 58; RESP 18; TEMP 37.2; O2SAT 99
[2019-08-31] MEDS: Normal Saline 1,000 ML 75 ML IV ×2 (04:13→15:54)
[2019-08-31 07:08] LABS: Anion Gap 10.1 mmol/L (3-11); BUN 28 mg/dL (7-18); CO2 23.9 mmol/L (21.0-32.0); CREATININE 1.78 mg/dL (0.70-1.30); Calcium 8.1 mg/dL (8.5-10.1); Chloride 108 mmol/L (98-107); Estimated GFR 36.96 (mL/min/1.73m2); Glucose 76 mg/dL (74-106); Potassium 3.9 mmol/L (3.5-5.1); Sodium 142 mmol/L (136-145)
[2019-08-31 07:17] LABS: Hemoglobin A1C 5.6 % (3.8-5.6)
[2019-08-31 07:20] LABS: Calculated LDL 79 mg/dL (<100); Cholesterol 142 mg/dL (<200); HDL Cholesterol 42 mg/dL (40-60); Triglyceride 107 mg/dL (<150)
[2019-08-31] MEDS: amLODIPine 5 MG TAB PO (07:56)
[2019-08-31] MEDS: Aspirin E.C. 81 MG TABEC PO (07:56)
[2019-08-31 08:10] VITALS: BP 149/69; PULSE 59; RESP 19; TEMP 37; O2SAT 96
--- NOTE | 2019-08-31 11:28 | W.NUTCONSULT ---
Date of service: 08/31/19 Time of Service: 11:28 Nutritional Consult ASSESSMENT: 79 year old male admitted with n/v/appetite loss, weakness and uncontrolled HTN. BMI wnl. Following regular meal with varied intake, some meal refusals. Will monitor po intake, weight and adjust meal plan for optimal intake, weight stability. MONITORING AND EVALUATION: po intake, weight, labs Time Spent in Nutritional Counseling and Treatment: 0 time spent face to face
[2019-08-31 11:55] VITALS: BP 165/78; PULSE 71; RESP 19; TEMP 37.2; O2SAT 95
--- NOTE | 2019-08-31 11:58 | NCONE_ITS ---
Date of service: 08/31/19 Time of Service: 11:58 Assessment and Plan Assessment and plan (1) Parkinson disease: Status: Chronic (2) Essential tremor: Status: Acute (3) Orthostatic hypotension: Status: Acute (4) Memory loss: Status: Acute (5) REM sleep behavior disorder: Status: Acute (6) Visual hallucinations: Status: Acute Assessment and plan: Mr. Whitmore is an 79 year-old, right-handed man with a complicated past medical history who was admitted with generalized weakness, increased falls, decreased PO intake, dizziness with movement, headache, nausea, dry heaves, and worsening hypertension. #1. His neurological exam is significant for Parkinsons disease + Essential Tremor. I discussed the diagnosis with him. He was very unhappy to hear this and denied the diagnosis despite multiple explanations. On return visit, we again discussed the diagnosis including treatment with Sinemet. He was agreeable. Start Sinemet 25/100mg am, noon, and ~5pm. ADRs were discussed. Wi ll hold off on treatment for ET at this time. His action tremor does not bother him. Continue PT. Consider rehab following hospitalization. Per son, patient will likely not agree with permanent placement. Son was also caregiver for his mom who had AD. He has no other support in caring for his father. #2. Dizziness. Unclear what the cause of his initial dizziness was or due to. The initial presumption was that he had vertigo with associated nausea and dry heaves. And he may indeed have had a peripheral vestibuloapthy that has since resolved (unable to cause any symptoms with [place]-Hallpike today). However, he was also found to have orthostatic hypotension and thus it's possible that his dizziness is secondary to this. Adding Sinemet above can potentially worsen orthostatic hypotension. We need to monitor this. #3. Visual hallucinations. This is part of his Parkinsons and can be worsened by the addition of Sinemet as above. His VH can startle him. After discussion, recommend Seroquel 25mg HS to help reduce this and improve sleep. ADRs were discussed. #4. REM Sleep Behavior Disorder. Presumed diagnosis based on clinical history and symptoms. Can consider clonazepam HS if symptoms become worse/severe. #5. Memory loss with severe chronic vascular changes. I recommend checking a vitamin B12 and RPR as further work-up. I also recommend aspirin 81mg daily. #6. Constipation. This is a common complication of Parkinsons and can worsen with the addition of Sinemet. I recommend adding docusate 200mg HS to start. #7. Medication/Medical non-adherence. Patient may decline all treatments/medications. I will continue to follow to determine response to Sinemet. History of Present Illness History of Present Illness Chief Complaint: vertigo Narrative: Handedness: right. HPI: Mr. Whitmore is an 79 year-old man with a PMH of hypertension, hyperlipidemia, AAA s/p repair, cervical stenosis, h/o lumbar spine compression fractures and spinal stenosis, CKD, and cigarette smoking. Mr. Whitmore presented to the ER on 08/29/19 with several days of generalized weakness, increased falls, decreased PO intake, dizziness with movement, headache, nausea, dry heaves, and worsening hypertension. In the ER, work-up was significant for acute on chronic renal insufficiency (2.06 compared to baseline ~1.7), negative troponin, and unremarkable EKG. He had a CTH which I was able to review and was significant for chronic small vessel disease changes. He was treated with IVF with improvement in most of his symptoms. This am he noted his dizziness was 90% better. He was unable to tell me if the dizziness was lightheadedness or vertigo. He continued to note dizziness only with movement. I performed [place]-Hallpike testing and could not cause any type of dizziness or reproduce symptoms. He was very fixated on his previous use of amlodipine last month in which he tells me it caused him to pass out due to hypotension. In actuality, in July 2018, he had 3 falls without cause/warning per PCP notes described as drop attacks. These were not associated with dizziness, etc. He had recorded low BPs at home (but not necessarily with these episodes) and stopped amlodipine on his own. During that same month, he had a few episodes of generalized shaking, usually while walking/upright, without loss of consciousness. He underwent a brain MRI/MRA this afternoon. There were no acute findings. 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 the MRA was unremarkable. After I saw him in the late morning today, I went back around ~5pm. He seemed to recall some of our previous visit, but not all. He did not recall my name or most of our previous conversations. I was able to perform some cognitive testing and talk to his son. His son notes progressive tremor of the UE and shuffling gait for several years (he uses a walker). He has chronic constipation, complicated by poor water intake. He has what sounds like a life-time of REM sleep behavior disorder (son calls them night terrors where he he will call out, kick, punch, etc. He recalls his dad and mother slept in different bedrooms for as long as he can remember becuase of this). In the last few months, Mr. Whitmore has been noted to have visual hallucinations (usually seeing birds, bugs, critters). These occasionally startle him, but don't seem to be overall alarming. His bedside orthostatics were positive with a sitting to standing BP change from 159/77 to 135/76. Review of Systems All systems reviewed & are unremarkable except as noted in HPI and below PFSH Medical History CKD (chronic kidney disease) (Chronic) Essential hypertension (Inactive 09/25/13) Hyperlipidemia (Inactive 06/20/03) Smoker (Inactive) 50 year pack history Syncope (Chronic) Surgical History Extraction of cataract 10/2002 Status post AAA (abdominal aortic aneurysm) repair (Acute) Social History Smoking/Tobacco Use Status: Current every day Tobacco Type: cigarettes Tobacco: How many years used: 60 Quit status: not considering quitting Second Hand Exposure: Yes Alcohol Intake: never Caregiver/Support person: Yes Household members: other Details: Son Housing: house Communication Needs: Hard of Hearing Do you need help understanding health information?: Rarely Pets and animals: No Sexually active: No Do you think of yourself as: straight/heterosexual Current gender identity: male What is your relationship status?: How often do you talk on the phone with friends or family?: decline to answer How often do you get together with friends or relatives?: decline to answer How often do you attend hinduism or protestant services?: decline to answer Do you belong to any clubs or organized social groups?: decline to answer Panel score (0-1 are the most socially isolated patients): 0 What type of physical activity do you participate in: none Frequency: does not exercise Carmen/Religious: No preference Special carmen needs: No Seatbelt use: always Drive intox or ride w/intox armored car 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 and driver: No Visit Medication and Allergies Active Medications Generic Name Dose Route Start Last Admin Trade Name Freq PRN Reason Stop Dose Admin Acetaminophen 650 mg 08/29/19 17:31 Tylenol PO Q4H PRN PRN Al Hydrox/Mg Hydrox/Simethicone 30 ml 08/29/19 17:31 Mylanta Liquid PO Q2H PRN PRN Amlodipine Besylate 5 mg 08/30/19 08:30 08/31/19 07:56 Norvasc PO 5 mg DAILY RENITA Administration Aspirin 81 mg 08/31/19 08:30 08/31/19 07:56 Ecotrin PO 81 mg DAILY RENITA Administration Dimethicone/Zinc Oxide 0 gm 08/29/19 17:31 Harry Protect Cream TP PRN PRN Docusate Sodium 100 mg 08/29/19 17:31 Colace PO TID PRN PRN Sodium Chloride 1,000 mls @ 75 mls/hr 08/29/19 17:45 08/31/19 04:13 Saline 1000ml Bag IV 75 mls/hr INFUSION RENITA Administration Lisinopril 10 mg 08/30/19 22:00 08/30/19 21:59 Prinivil PO 10 mg HS RENITA Administration Magnesium Hydroxide 30 ml 08/29/19 17:31 Milk Of Magnesia PO DAILY PRN PRN Meclizine HCl 25 mg 08/29/19 15:49 08/29/19 15:53 Antivert PO 25 mg TID PRN PRN Administration Metoprolol Tartrate 5 mg 08/29/19 22:45 Lopressor Injection IVP Q2H PRN PRN Ondansetron HCl 4 mg 08/29/19 17:36 Zofran Injection IVP Q4H PRN PRN Polyethylene Glycol 17 gm 08/29/19 17:31 Miralax PO DAILY PRN PRN Constipation Simvastatin 10 mg 08/29/19 22:00 08/30/19 21:59 Zocor PO 10 mg HS RENITA Administration Allergies Penicillins Allergy (Intermediate, Unverified 08/29/19 12:17) HIVES Exam Narrative Exam Narrative: Physical Exam: Gen: Patient of apparent stated age, NAD, mild hypomimia Head and face: no facial or cranial abnormalities Neck: Supple, no meningismus, no occipital tenderness CV: + S1, S2, RRR, no murmur Resp: CTA B/L Abd: soft, nontender, nondistended Ext: No edema. No clubbing or cyanosis. No bony deformity. Neuro Exam: Language: fluency, naming, repetition, and comprehension intact; Mental Status: AAO, current events and fund of knowledge mostly intact; some confusion on timelines, etc Speech: no dysarthria Cranial nerves: Funduscopy: not performed CN II: visual fong intact CN III, IV, : extraocular movements intact, no sustained nystagmus, impaired smooth pursuit with intact saccades, pupils symmetric and reactive to light CN V: face sensation intact to LT and PP CN VII: no facial asymmetry noted CN VIII: hearing reduced bilaterally CN IX, X: palate rises symmetrically CN XI: trapezius/SCM 5/5 bilaterally CN XII: protrudes tongue symmetrically Sensory: intact to LT, PP and joint position in all extremities; reduced vibration in the toes bilaterally; Motor: bulk intact. Moderate bilateral cogwheel rigidity, R>L. Fine motor movements reduced bilaterally. No pronator drift. Subtle RUE pill-rolling tremor. Mild L>R UE bradykinesia (LE not tested). Strength 5/5 throughout including the deltoids, biceps, triceps, wrist extensors, hip flexors, knee flexors, knee extensors, ankle flexors, and ankle extensors. Moderate R and mild L UE postural tremor, worse with action. Reflexes: brisk throughout; toes down going bilaterally; no clonus Coordination: FTN with moderate-severe R and mild-moderate L UE dysmetria Gait: he declined and would not walk with PT either due to fear of dizziness Teodoro-Hallpike: negative bilateral testing; no symptom reproduction; test limited due to decrease ROM of the neck; Second Visit Exam: Oriented to season and year. Did not know month, date, day. Knew town, hospital and floor. Immediate recall 2/3 with delayed recall 1/3; not able to get others with cues Unable to spell world or perform serial 7s Results Last Vital Signs Temp 37.0 C 08/31/19 08:10 Pulse 59 L 08/31/19 08:10 Resp 19 08/31/19 08:10 BP 149/69 H 08/31/19 08:10 Pulse Ox 96 08/31/19 08:10 Labs Result diagrams: 08/30/19 06:15 08/31/19 06:47 Labs: Laboratory Results - last 24 hr 08/31/19 08/31/19 08/31/19 06:47 06:47 06:47 Sodium 142 Potassium 3.9 Chloride 108 H Carbon Dioxide 23.9 Anion Gap 10.1 BUN 28 H Creatinine 1.78 H Estimated GFR/1.73 m2 36.96 Glucose 76 Hemoglobin A1c 5.6 Calcium 8.1 L Triglycerides 107 Total Cholesterol 142 LDL Cholesterol, Calc 79 HDL Cholesterol 42 TSH 1.60
--- NOTE | 2019-08-31 14:18 | PDOC.CMPRO ---
- If Service Date Differs Date of service: 08/31/19 Time of Service: 14:18 Care Management Progress Note S/O: Kevin was sitting up in bed when CM met with him. He appeared quite hard of hearing but was polite and agreeable to conversation. Kevin stated that he is feeling better but has been dizzy for quite some time. He stated that it has been much worse for about a week. He also stated that he has been using a walker at home and that really helps with the dizziness. He stated that it is frightening because he never knows when he is going to get dizzy and fall. Kevin also talked about his who 2 years ago from Alzheimer's disease. He said it was a really difficult time for the family. He shared that both his 's mother and sister also had Alzheimers. A: Kevin is an 79 year old gentleman admitted on 08/29/2019 with uncontrolled HTN and dizziness with nausea. P: Kevin will be discharged home when medically ready with his family. He has a PT consult in place, anticipate no additional services at time of discharge pending PT recomendations. CM will continue to provide support and assessment for discharge needs.
--- NOTE | 2019-08-31 14:24 | PT.INTREAT ---
Date of service: 08/31/19 Time of Service: 14:24 PT Notes Visit Reasons: UNCONTROLLED HTN, DIZZINESS WITH NAUSEA 08/31/2019 SUBJECTIVE: Kevin stating that he has been quite dizzy upon getting up from supine position. He does not want to walk at the moment. He states he is awaiting an MRI. OBJECTIVE: Supine in bed. Agreeable to PT. TRANSFERS Supine to sit: Min A Sit to supine: CGA Sit to stand: Min A Stand to sit: Min A GAIT Device: FWW Weight bearing: Full Assist: CGA Distance: Pt does not ambulate. Stands at EOB x 2' Deviation: Slightly dizzy although improved from yesterday. VITALS: Seated 165/78, 71 b/m. Standing 130/72 ASSESSMENT: Pt is fearful of passing out if he walks with me this morning. He did stand up to get orthostatic pressures as noted above. His dizziness is improved compared to yesterday per subjective report. PLAN: Continue per POC and progressing with gait as he feels comfortable. Treatment time: 15 Margaret Urbina, SUJIT
--- NOTE | 2019-08-31 15:10 | DI.MRI_ITS ---
EXAM: MR ANGIO BRAIN WO CLINICAL HISTORY: POSTERIOR CIRCULATION CVA SX, DISEQUILIBRIUM. TECHNIQUE: Multiplanar multisequence MRI was performed. COMPARISON: No exams were available for comparison FINDINGS: The vertebral, basilar and posterior cerebral arteries are well visualized and appear normal in diame ter throughout. The distal internal carotid arteries, anterior and middle cerebral arteries are also normal in diameter. There is no evidence of significant stenosis or vascular irregularity. There i s no evidence of dissection or aneurysm. IMPRESSION: Negative MRA of the brain.
--- NOTE | 2019-08-31 15:22 | DI.MRI_ITS ---
EXAM: MR BRAIN WO CLINICAL HISTORY: posterior circulation CVA. TECHNIQUE: Multiplanar multisequence MRI was performed. COMPARISON: No exams were available for comparison FINDINGS: No intracranial hemorrhage, mass or acute infarct is seen. There is mild atrophy. There are scatt ered high signal area areas in the white matter and high signal patchiness in the periventricular whi te matter consistent with sequela of chronic microvascular disease. The ventricles are normal in siz e. The vascular flow voids appear intact. The orbits, sinuses and mastoid air cells are unremarkabl e. IMPRESSION: Atrophy and white matter changes microvascular disease. No acute abnormality.
--- NOTE | 2019-08-31 15:30 | PTTR_ITS ---
Date of service: 08/31/19 Time of Service: 15:30 PT Notes Visit Reasons: UNCONTROLLED HTN, DIZZINESS WITH NAUSEA Inpatient Physical Therapy Treatment Note [facility] Date: 08/31/2019 PRECAUTIONS: Fall. [place]. Activity as tolerated. SUBJECTIVE: Patient continues to report dizziness associated with positional changes. He reports being very fatigued as well from all the tests he has had today. OBJECTIVE: Telemetry monitoring in place. PAIN: 0/10 BED MOBILITY/TRANSFERS Rolling L/R: SBA Supine-sit: CGA Sit-supine: CGA Sit-stand: CGA Stand-sit: CGA Bed-Chair: CGA Chair-bed: CGA GAIT Assistive Device: FWW Weight bearing: FWB Assist: CGA Distance: 8 feet + 1 turn Deviation: Patient needed to move fast before he got dizzy, he states. Decrease d step height. ASSESSMENT: No acute abnormality is seen on brain MRI and MRA. Patient continues to be vertiginous and may benefit from vestibular rehabilitation. PLAN: Teodoro-Hallpike maneuver will be performed on patient first thing tomorrow morning. Spoke with nurse, if patient is able to tolerate, about holding off on Meclizine administration in order to have a more objective BPPV testing result. Patient is in agreemant of plan. TREATMENT CODE/TIME: 44383 x 15 minutes beginning at 15:30 PM.
[2019-08-31 15:59] VITALS: BP 135/76; BP 159/77; BP 187/84; PULSE 58; PULSE 65; PULSE 67; RESP 20; TEMP 36.9; O2SAT 99
--- NOTE | 2019-08-31 16:31 | PT.INTREAT ---
Date of service: 08/31/19 Time of Service: 15:30 PT Notes Visit Reasons: UNCONTROLLED HTN, DIZZINESS WITH NAUSEA
--- NOTE | 2019-08-31 16:36 | PGE_ITS ---
Date of Service Date of service: 08/31/19 Time of Service: 16:36 Assessment and Plan Assessment and plan (1) Cerebellar dysfunction: Status: Acute Assessment and plan: His MRI and MRA today showed no significant abnormality. It does not appear that he had a cerebellar stroke. Dr. Yang saw him from neurology and feels that he probably has Parkinson's and an essential tremor. She discussed starting anti-Parkinson's medication which he was reluctant to do. Plan is to check orthostatic vital signs, continue physical therapy, home safety evaluation. (2) CKD (chronic kidney disease): Status: Chronic Assessment and plan: Baseline creatinine appears to be around 1.6. He is at 1.78 today. Qualifiers: Chronic kidney disease stage: stage 3 (moderate) Qualified Code(s): N18.3 - Chronic kidney disease, stage 3 (moderate) (3) Vertigo: Status: Acute Assessment and plan: Dr. Yang tried the [place]-Hallpike maneuver today without much success. There is some question whether this may be a vestibular problem. Continue with physical therapy. (4) Generalized weakness: Status: Acute Assessment and plan: He is overall quite weak and of limited ability to take care of all of his activities of daily living. We will continue to evaluate for safety and appropriateness for independent living. Subjective Subjective Interval history since last seen: Patient states he is feeling better. He still has some dizziness with ambulation but it is more minor. He is fearful that he is going to get a severe attack of dizziness that can come out of nowhere. He was seen by neurology today. He had an MRI and MRA done today. He worked with physical therapy today. Exam Narrative Exam Narrative: On exam he is sitting up on the side of the bed. He states he has no pain and no dizziness. He is very hard of hearing. He lays back flat in the bed without much difficulty. When he squeezes my hand I do sense that there is a rhythmic tremor that is fairly mild. I did not detect any cogwheeling with flexion extension at the elbow. I looked at his tympanic membranes on the right and left which were rivero and did not show any evidence of rupture, no bulging, no redness. Objective Objective Clinical Data: Abnormal lab results 08/31/19 Range/Units 06:47 Chloride 108 H (98-107) mmol/L BUN 28 H (7-18) mg/dL Creatinine 1.78 H (0.70-1.30) mg/dL Calcium 8.1 L (8.5-10.1) mg/dL Vital Signs Temperature 36.9 C 08/31/19 15:59 Temperature Source Tympanic 08/31/19 15:59 Pulse 65 08/31/19 15:59 Pulse Rhythm Regular 08/31/19 08:30 Pulse 81 08/29/19 13:32 Respiratory Rate 20 08/31/19 15:59 Respiratory Effort Non-Labored 08/31/19 08:30 Respiratory Depth Normal 08/31/19 08:30 Respiratory Pattern Normal 08/31/19 08:30 Blood Pressure 159/77 H 08/31/19 15:59 Blood Pressure Mean 106 08/29/19 17:01 Blood Pressure Position Supine 08/29/19 12:08 Pulse Oximetry 99 08/31/19 15:59 Oxygen Delivery Method Room Air 08/31/19 15:59 Oxygen Flow Rate 0 08/31/19 15:59 Pain Level 0 08/31/19 15:59 Intake & Output 08/30/19 08/31/19 08/31/19 23:59 11:59 23:59 Intake Total 685.833 / 1240.000 966.25 / 1842.50 876.25 / 1842.50 Output Total 475 / 1075 600 / 1400 800 / 1400 Balance 210.833 / 165.000 366.25 / 442.50 76.25 / 442.50 Weight 70.7 kg Intake: IV 445.833 / 1000.000 846.25 / 1722.50 876.25 / 1722.50 Oral 240 / 240 120 / 120 Output: Urine 475 / 1075 600 / 1400 800 / 1400 Other: Urine Color Yellow Yellow Yellow Urine Appearance Clear Clear Clear Urine Odor Normal None Comment per patient total from 5 voids throughout shift Voiding Methods Urinal Urinal Urinal Laboratory Results WBC 7.85 k/cumm (4.4-10.8) 08/30/19 06:15 RBC 3.61 m/cumm (4.50-6.00) L 08/30/19 06:15 Hgb 10.9 g/dL (13.5-17.5) L D 08/30/19 06:15 Hct 33.1 % (40.0-50.0) L 08/30/19 06:15 MCV 91.7 fL (80-95) 08/30/19 06:15 MCH 30.2 pg (27.0-33.0) 08/30/19 06:15 MCHC 32.9 g/dL (32.0-36.0) 08/30/19 06:15 RDW 14.4 % (11.8-14.1) H 08/30/19 06:15 Plt Count 102 x1000/uL (130-400) L 08/30/19 06:15 MPV 9.9 fL (8.0-11.0) 08/30/19 06:15 Immature Gran % 0.3 % 08/29/19 12:25 Neutrophils % 87.4 08/29/19 12:25 Lymphocytes % 6.8 08/29/19 12:25 Monocytes % 5.4 08/29/19 12:25 Eosinophils % 0.0 08/29/19 12:25 Basophils % 0.1 08/29/19 12:25 Absolute Neutrophils 9.59 k/cumm (1.2-6.7) H 08/29/19 12:25 Absolute Lymphocytes 0.75 k/cumm (1.2-3.4) L 08/29/19 12:25 Absolute Monocytes 0.59 k/cumm (0.11-0.7) 08/29/19 12:25 Absolute Eosinophils 0.00 k/cumm (0.0-0.7) 08/29/19 12:25 Absolute Basophils 0.01 k/cumm (0.0-0.2) 08/29/19 12:25 Sodium 142 mmol/L (136-145) 08/31/19 06:47 Potassium 3.9 mmol/L (3.5-5.1) 08/31/19 06:47 Chloride 108 mmol/L (98-107) H 08/31/19 06:47 Carbon Dioxide 23.9 mmol/L (21.0-32.0) 08/31/19 06:47 Anion Gap 10.1 mmol/L (3-11) 08/31/19 06:47 BUN 28 mg/dL (7-18) H 08/31/19 06:47 Creatinine 1.78 mg/dL (0.70-1.30) H 08/31/19 06:47 Estimated GFR/1.73 m2 36.96 (mL/min/1.73m2) 08/31/19 06:47 Glucose 76 mg/dL (74-106) 08/31/19 06:47 Hemoglobin A1c 5.6 % (3.8-5.6) 08/31/19 06:47 Calcium 8.1 mg/dL (8.5-10.1) L 08/31/19 06:47 Magnesium 2.1 mg/dL (1.8-2.4) 08/29/19 12:25 Total Bilirubin 0.7 mg/dL (0.2-1.0) 08/30/19 06:15 AST 26 U/L (15-37) 08/30/19 06:15 ALT 20 U/L (16-63) 08/30/19 06:15 Alkaline Phosphatase 95 U/L (46-116) 08/30/19 06:15 Troponin I < 0.05 ng/Ml (<0.06) 08/29/19 12:25 Total Protein 5.9 g/dL (6.4-8.2) L 08/30/19 06:15 Albumin 3.0 g/dL (3.4-5.0) L 08/30/19 06:15 Triglycerides 107 mg/dL (<150) 08/31/19 06:47 Total Cholesterol 142 mg/dL (<200) 08/31/19 06:47 LDL Cholesterol, Calc 79 mg/dL (<100) 08/31/19 06:47 HDL Cholesterol 42 mg/dL (40-60) 08/31/19 06:47 TSH 1.60 uIU/mL (0.36-3.74) 08/31/19 06:47 Urine Color Yellow (Yellow) 08/29/19 14:52 Urine Clarity Clear (Clear) 08/29/19 14:52 Urine pH 6.0 (5-8) 08/29/19 14:52 Ur Specific [place] >= 1.030 (1.005-1.025) H 08/29/19 14:52 Urine Protein 100 mg/dL (Negative) H 08/29/19 14:52 Urine Ketones Negative mg/dL (Negative) 08/29/19 14:52 Urine Blood Moderate (Negative) H 08/29/19 14:52 Urine Nitrite Negative (Negative) 08/29/19 14:52 Urine Bilirubin Negative (Negative) 08/29/19 14:52 Urine Urobilinogen 0.2 EU/dL (Up TO 0.2) 08/29/19 14:52 Ur Leukocyte Esterase Negative (Negative) 08/29/19 14:52 Urine RBC 5-10 HPF (0-2) H 08/29/19 14:52 Urine WBC 3-5 HPF (0-5) 08/29/19 14:52 Ur Epithelial Cells Moderate HPF (Negative) 08/29/19 14:52 Urine Crystals Negative HPF (Negative) 08/29/19 14:52 Urine Bacteria Few HPF (Negative) 08/29/19 14:52 Urine Casts 0-2 fine granular LPF (Negative) 08/29/19 14:52 Urine Mucus Negative (Negative) 08/29/19 14:52 Ur Culture Indicated? No/sq. contamination 08/29/19 14:52 Urine Glucose 100 mg/dL (Negative) 08/29/19 14:52
[2019-08-31] MEDS: Carbidopa 25/Levodopa 100 TAB PO (18:11)
[2019-08-31] MEDS: QUEtiapine 25 MG TAB PO (21:12)
[2019-08-31] MEDS: Simvastatin 10 MG TAB PO (21:12)
[2019-08-31] MEDS: Lisinopril 5 MG TAB 10 MG PO (21:12)
[2019-08-31 22:19] VITALS: BP 152/84; PULSE 57; RESP 19; TEMP 37; O2SAT 96
[2019-09-01] VITALS (7 sets, daily range): BP systolic 138–184; BP diastolic 74–91; PULSE 52–69; RESP 17–24; TEMP 36.3–37.1; O2SAT 97–99
[2019-09-01] MEDS: Normal Saline 1,000 ML 75 ML IV (03:24)
[2019-09-01] MEDS: Carbidopa 25/Levodopa 100 TAB PO ×3 (07:37→16:58)
[2019-09-01] MEDS: Aspirin E.C. 81 MG TABEC PO (07:37)
[2019-09-01] MEDS: amLODIPine 5 MG TAB PO (07:37)
--- NOTE | 2019-09-01 11:18 | PTTR_ITS ---
Date of service: 09/02/19 Time of Service: 11:18 PT Notes Visit Reasons: UNCONTROLLED HTN, DIZZINESS WITH NAUSEA Inpatient Physical Therapy Treatment Note [facility] Date: 09/01/2019 PRECAUTIONS: Standard. Fall. Activity as tolerated. Sensorineural hearing loss. SUBJECTIVE: Pt reports that he is feeling nauseous when he woke up from a nap. OBJECTIVE: telemonitor in place. PAIN:0/10 pain BED MOBILITY/TRANSFERS Rolling L/R: SBA HOB flat Supine-sit: SBA Sit-supine: SBA with cues for positioning Sit-stand: CGA Stand-sit: CGA Bed-Chair: CGA Chair-bed: CGA GAIT: Pt was able to ambulate 100 feet + 100 feet, full weightbearing, using a front-wheeled walker. CGA provided by PT student with wheelchair follow provided by PT. Reciprocal gait pattern. Cues provided for big steps to avoid shuffling gait. Last 100 feet the pt ambulated with 3lb ankle weights on his B LE. STAIRS: Pt was able to ascend and descend the 4-inch steps x 3 and 6-inch steps x 2 with bilateral UE support on the railings. Reciprocal gait pattern. SBA - CGA provided by PT student. THEREX: Standing marches with 3lb ankle weights B x 10 Standing hip extension with 3lb ankle weights B x 10 ASSESSMENT: Pt demonstrated improvements in mobility as he was able to ambulate 100 feet x 2 without requiring any rest breaks or losses of balance. He was able to perform bed mobility without assistance from the physical therapist. Pt was able to perform stair negotiation without any difficulty and demonstrated a reciprocal gait pattern, with no losses of balance or complaints of increased dizziness or nausea. He would continue to benefit from skilled physical therapy at this time. PLAN: Continue with established POC. Discharge to home with 24/7 care and home health physical therapy. TREATMENT CODE/TIME: 54644 x32 minutes, 94780 x10 minutes beginning at 11:18 A.M. BRE Nielsen Doctor of Physical Therapy Student [facility] Supervision provided by Nanci Casillas PT, DPT, CLT [facility] [place], [place]
--- NOTE | 2019-09-01 13:08 | W.PM.PROGNOT ---
Date of Service Date of service: 09/01/19 Time of Service: 13:08 Assessment and Plan Assessment and plan (1) Parkinson disease: Status: Chronic Assessment and plan: This is my first time seeing the patient, but per son he has had dramatic improvement on dopaminergic therapy. We will continue with further titration per neurology. Continue working with physical therapy as the patient's goal is to get back home. (2) CKD (chronic kidney disease): Status: Chronic Assessment and plan: Patient's creatinine has been roughly at baseline. Stopping the IV fluids as his oral intake should improve with treatment of Parkinson's. Will follow.. Qualifiers: Chronic kidney disease stage: stage 3 (moderate) Qualified Code(s): N18.3 - Chronic kidney disease, stage 3 (moderate) (3) Vertigo: Status: Acute Assessment and plan: Negative Teodoro-Hallpike maneuver per Dr. Ramos. MRI/MRA was negative. The patient has struggled with orthostatic hypotension, and listening to him describe his symptoms with standing suggest this may be the main cause of his dizziness. Unfortunately, the Sinemet can make this worse. He is also on multiple vasodilators as his blood pressure at baseline is still quite high and he has a history of vascular disease. At this point, will continue with physical therapy and continue to monitor. (4) Orthostatic hypotension: Status: Acute Assessment and plan: As above. Comfortable cutting his blood pressure medications further given his vascular risk and history of very high blood pressures. He also responded well to the Sinemet so this should be continued. For now, continue to monitor. (5) Accelerated hypertension: Status: Acute Assessment and plan: Blood pressure continues high with most readings, though there is a wide variability. This is consistent with his recent history. As above, I do not feel comfortable stopping the pressure medications, but I do not think increasing that would be prudent given his orthostasis and associated fall risk. (6) Anemia: Status: Chronic Assessment and plan: This does appear to be a chronic issue. Likely at least partially associated with his renal disease. In the clinic record, there is a B12 level and occult blood that was negative in the past year. I will get iron studies with the labs to see if this is contributing. I would like to treat anemia if possible as it can worsen orthostatic hypotension. (7) Thrombocytopenia: Status: Chronic Assessment and plan: This is nearly below the lower limit of normal on this admission, though the trend has been decreasing over the past years in the outpatient record. He is not on a heparin. 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 We will maintain him off of Lovenox and monitor for now, as it is well above level of concern for bleeding. Consider liver elastography assessment as an outpatient if this continues abnormal. Subjective Subjective Patient reports: denies vomiting and fever Interval history since last seen: 24 hr: Seen by Dr. Ramos and started on Sinemet and quetiapine qhs. Per son, movement is much better since starting on Sinemet, like having his old dad back. He has still been dizzy and a bit nauseous since doing PT, but did much better with PT. Still hungry and eating lunch now. Son states he hasn't been eating well for a while. They both deny noting hallucinations. Son noted he was more groggy in the morning, relates to the medication. Slept well. Exam Narrative Exam Narrative: General: On exam he is sitting up in a chair eating comfortably. He is very hard of hearing. HEENT: Mucous membranes moist, conjunctive are clear. No nystagmus, extraocular motion intact. Cardiovascular: Regular rate and rhythm, no murmurs gallops or rubs. Lungs: Clear to auscultation bilaterally normal effort Abdomen: Active bowel sounds, soft, nontender/nondistended. Extremities: No cyanosis clubbing or edema. Neurologic: Moving all 4 extremities. Some tremor in right arm with hands extended. Grossly normal coordination and minimal tremor with using utensils. Objective Objective Clinical Data: Vital Signs Temperature 36.6 C 09/01/19 07:24 Temperature Source Tympanic 09/01/19 03:46 Pulse 69 09/01/19 08:10 Pulse Rhythm Regular 09/01/19 09:22 Pulse 81 08/29/19 13:32 Respiratory Rate 24 09/01/19 07:24 Respiratory Effort Non-Labored 09/01/19 09:22 Respiratory Depth Normal 09/01/19 09:22 Respiratory Pattern Normal 09/01/19 09:22 Blood Pressure 138/76 09/01/19 08:10 Blood Pressure Mean 106 08/29/19 17:01 Blood Pressure Position Supine 08/29/19 12:08 Pulse Oximetry 97 09/01/19 08:13 Oxygen Delivery Method Room Air 09/01/19 08:13 Oxygen Flow Rate 0 09/01/19 08:13 Pain Level 0 09/01/19 07:24 Intake & Output 08/31/19 09/01/19 09/01/19 23:59 11:59 23:59 Intake Total 1596.25 / 2562.50 1845.0 / 1845.0 Output Total 1450 / 0 1100 / 1100 Balance 146.25 / 512.50 745.0 / 745.0 Weight 70.3 kg Intake: IV 876.25 / 1722.50 1725.0 / 1725.0 Oral 720 / 840 120 / 120 Output: Urine 145 / 2049 1100 / 1100 Other: Urine Color Pale Yellow Urine Appearance Clear Clear Urine Odor None Normal Comment total from 5 voids throughout shift Voiding Methods Urinal Urinal Laboratory Results WBC 7.85 k/cumm (4.4-10.8) 08/30/19 06:15 RBC 3.61 m/cumm (4.50-6.00) L 08/30/19 06:15 Hgb 10.9 g/dL (13.5-17.5) L D 08/30/19 06:15 Hct 33.1 % (40.0-50.0) L 08/30/19 06:15 MCV 91.7 fL (80-95) 08/30/19 06:15 MCH 30.2 pg (27.0-33.0) 08/30/19 06:15 MCHC 32.9 g/dL (32.0-36.0) 08/30/19 06:15 RDW 14.4 % (11.8-14.1) H 08/30/19 06:15 Plt Count 102 x1000/uL (130-400) L 08/30/19 06:15 MPV 9.9 fL (8.0-11.0) 08/30/19 06:15 Immature Gran % 0.3 % 08/29/19 12:25 Neutrophils % 87.4 08/29/19 12:25 Lymphocytes % 6.8 08/29/19 12:25 Monocytes % 5.4 08/29/19 12:25 Eosinophils % 0.0 08/29/19 12:25 Basophils % 0.1 08/29/19 12:25 Absolute Neutrophils 9.59 k/cumm (1.2-6.7) H 08/29/19 12:25 Absolute Lymphocytes 0.75 k/cumm (1.2-3.4) L 08/29/19 12:25 Absolute Monocytes 0.59 k/cumm (0.11-0.7) 08/29/19 12:25 Absolute Eosinophils 0.00 k/cumm (0.0-0.7) 08/29/19 12:25 Absolute Basophils 0.01 k/cumm (0.0-0.2) 08/29/19 12:25 Sodium 142 mmol/L (136-145) 08/31/19 06:47 Potassium 3.9 mmol/L (3.5-5.1) 08/31/19 06:47 Chloride 108 mmol/L (98-107) H 08/31/19 06:47 Carbon Dioxide 23.9 mmol/L (21.0-32.0) 08/31/19 06:47 Anion Gap 10.1 mmol/L (3-11) 08/31/19 06:47 BUN 28 mg/dL (7-18) H 08/31/19 06:47 Creatinine 1.78 mg/dL (0.70-1.30) H 08/31/19 06:47 Estimated GFR/1.73 m2 36.96 (mL/min/1.73m2) 08/31/19 06:47 Glucose 76 mg/dL (74-106) 08/31/19 06:47 Hemoglobin A1c 5.6 % (3.8-5.6) 08/31/19 06:47 Calcium 8.1 mg/dL (8.5-10.1) L 08/31/19 06:47 Magnesium 2.1 mg/dL (1.8-2.4) 08/29/19 12:25 Total Bilirubin 0.7 mg/dL (0.2-1.0) 08/30/19 06:15 AST 26 U/L (15-37) 08/30/19 06:15 ALT 20 U/L (16-63) 08/30/19 06:15 Alkaline Phosphatase 95 U/L (46-116) 08/30/19 06:15 Troponin I < 0.05 ng/Ml (<0.06) 08/29/19 12:25 Total Protein 5.9 g/dL (6.4-8.2) L 08/30/19 06:15 Albumin 3.0 g/dL (3.4-5.0) L 08/30/19 06:15 Triglycerides 107 mg/dL (<150) 08/31/19 06:47 Total Cholesterol 142 mg/dL (<200) 08/31/19 06:47 LDL Cholesterol, Calc 79 mg/dL (<100) 08/31/19 06:47 HDL Cholesterol 42 mg/dL (40-60) 08/31/19 06:47 TSH 1.60 uIU/mL (0.36-3.74) 08/31/19 06:47 Urine Color Yellow (Yellow) 08/29/19 14:52 Urine Clarity Clear (Clear) 08/29/19 14:52 Urine pH 6.0 (5-8) 08/29/19 14:52 Ur Specific [place] >= 1.030 (1.005-1.025) H 08/29/19 14:52 Urine Protein 100 mg/dL (Negative) H 08/29/19 14:52 Urine Ketones Negative mg/dL (Negative) 08/29/19 14:52 Urine Blood Moderate (Negative) H 08/29/19 14:52 Urine Nitrite Negative (Negative) 08/29/19 14:52 Urine Bilirubin Negative (Negative) 08/29/19 14:52 Urine Urobilinogen 0.2 EU/dL (Up TO 0.2) 08/29/19 14:52 Ur Leukocyte Esterase Negative (Negative) 08/29/19 14:52 Urine RBC 5-10 HPF (0-2) H 08/29/19 14:52 Urine WBC 3-5 HPF (0-5) 08/29/19 14:52 Ur Epithelial Cells Moderate HPF (Negative) 08/29/19 14:52 Urine Crystals Negative HPF (Negative) 08/29/19 14:52 Urine Bacteria Few HPF (Negative) 08/29/19 14:52 Urine Casts 0-2 fine granular LPF (Negative) 08/29/19 14:52 Urine Mucus Negative (Negative) 08/29/19 14:52 Ur Culture Indicated? No/sq. contamination 08/29/19 14:52 Urine Glucose 100 mg/dL (Negative) 08/29/19 14:52
--- NOTE | 2019-09-01 15:22 | PDOC.CMPRO ---
- If Service Date Differs Date of service: 09/01/19 Time of Service: 15:22 Care Management Progress Note S/O: Kevin was sitting up in bed when CM met with him. His son Golden was visiting with him and shared that Kevin was very hard of hearing. Kevin was started on a new medication for Parkinson's disease yesterday and he and Golden stated they feel that it may be helping already. Golden stated that when he was admitted, Kevin was unable to get OOB alone. This morning he was able to ambulate with PT using a walker. If he continues to progress, Kevin does not feel he will need any services at home. A: Kevin is an 79 year old gentleman admitted on 08/29/2019 with uncontrolled HTN and dizziness with nausea. P: Kevin will likely be discharged home with his son Golden when medically ready. Anticipate no additional services at time of discharge pending PT recommendations. CM will continue to provide support and assessment for discharge needs. cc:
--- NOTE | 2019-09-01 15:31 | W.PM.PROGNOT ---
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 Wihtmore is an 79 year-old, right-handed man with a complicated past medical history who was admitted with generalized weakness, increased falls, decreased PO intake, dizziness with movement, headache, nausea, dry heaves, and worsening hypertension. #1. Parkinsons disease + Essential Tremor. Apparent improvement with the addition of Sinemet. He could probably use a higher dose, however, I am hesitant to increase due to orthostatic hypotension. Thus, no changes at this time. Continue PT. I encouraged him to consider inpatient PT. #2. Dizziness. Unclear what the cause of his initial dizziness was or due to. The initial presumption was that he had vertigo with associated nausea and dry heaves. And he may indeed have had a peripheral vestibuloapthy that has since resolved. However, he was also found to have orthostatic hypotension and thus it's more like this was the cause of his dizziness all along. Dizziness appears improved per other reports. Will continue to monitor. #3. Visual hallucinations. Agree with reducing seroquel to 12.5mg HS. #4. REM Sleep Behavior Disorder. Presumed diagnosis based on clinical history and symptoms. Can consider clonazepam HS if symptoms become worse/severe. #5. Memory loss with severe chronic vascular changes and complicated by hearing loss. Continue aspirin 81mg daily. Monitor anemia and thrombocytopenia. 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 #6. Constipation. This is a common complication of Parkinsons and can worsen with the addition of Sinemet. I recommend scheduling docusate 200mg HS as a start. I will continue to follow along. Subjective Subjective Interval history since last seen: Patient unaccompanied this afternoon. Per reports, son noticed significant improvement with the addition of Sinemet. Mr. Whitmore has noted no tremors today. PT walked with him earlier and noted improvement. He had reduced dizziness per them. He tells me he had significant dizziness. A bit groggy this am. Seroquel has been reduced to 12.5mg HS for tonight. No hallucinations today. Exam Narrative Exam Narrative: Physical Exam: Constitutional: Patient of apparent stated age, well nourished, well developed, no acute distress. mild hypomimia Neuro: MS/Language/Speech: Alert, oriented, clear language (fluency and comprehension), no dysarthria Motor: Normal bulk. Moderate L and mild R cogwheel rigidity at the wrist. Mild diffuse bradykinesia. FMM reduced bilaterally, no pronator drift. 5/5 strength in bilateral upper and lower extremities. No resting tremor today. Coordination: Finger to nose performed with moderate R and mild L UE dysmetria Gait: patient declined; said he was too tired Objective Objective Clinical Data: Vital Signs Temperature 36.5 C 09/01/19 15:26 Temperature Source Tympanic 09/01/19 15:26 Pulse 67 09/01/19 15:26 Pulse Rhythm Regular 09/01/19 09:22 Pulse 81 08/29/19 13:32 Respiratory Rate 18 09/01/19 15:26 Respiratory Effort Non-Labored 09/01/19 09:22 Respiratory Depth Normal 09/01/19 09:22 Respiratory Pattern Normal 09/01/19 09:22 Blood Pressure 169/85 H 09/01/19 15:26 Blood Pressure Mean 106 08/29/19 17:01 Blood Pressure Position Supine 08/29/19 12:08 Pulse Oximetry 98 09/01/19 15:26 Oxygen Delivery Method Room Air 09/01/19 15:26 Oxygen Flow Rate 0 09/01/19 15:26 Pain Level 0 09/01/19 07:24 Intake & Output 08/31/19 09/01/19 09/01/19 23:59 11:59 23:59 Intake Total 1596.25 / 2562.50 1845.0 / 1845.0 Output Total 1450 / 2050 1100 / 1600 500 / 1600 Balance 146.25 / 512.50 745.0 / 245.0 -500 / 245.0 Weight 70.3 kg Intake: IV 876.25 / 1722.50 1725.0 / 1725.0 Oral 720 / 840 120 / 120 Output: Urine 1450 / 2050 1100 / 1600 500 / 1600 Other: Urine Color Pale Yellow Yellow Urine Appearance Clear Clear Clear Urine Odor None Normal Comment total from 5 voids throughout shift Voiding Methods Urinal Urinal Urinal Laboratory Results WBC 7.85 k/cumm (4.4-10.8) 08/30/19 06:15 RBC 3.61 m/cumm (4.50-6.00) L 08/30/19 06:15 Hgb 10.9 g/dL (13.5-17.5) L D 08/30/19 06:15 Hct 33.1 % (40.0-50.0) L 08/30/19 06:15 MCV 91.7 fL (80-95) 08/30/19 06:15 MCH 30.2 pg (27.0-33.0) 08/30/19 06:15 MCHC 32.9 g/dL (32.0-36.0) 08/30/19 06:15 RDW 14.4 % (11.8-14.1) H 08/30/19 06:15 Plt Count 102 x1000/uL (130-400) L 08/30/19 06:15 MPV 9.9 fL (8.0-11.0) 08/30/19 06:15 Immature Gran % 0.3 % 08/29/19 12:25 Neutrophils % 87.4 08/29/19 12:25 Lymphocytes % 6.8 08/29/19 12:25 Monocytes % 5.4 08/29/19 12:25 Eosinophils % 0.0 08/29/19 12:25 Basophils % 0.1 08/29/19 12:25 Absolute Neutrophils 9.59 k/cumm (1.2-6.7) H 08/29/19 12:25 Absolute Lymphocytes 0.75 k/cumm (1.2-3.4) L 08/29/19 12:25 Absolute Monocytes 0.59 k/cumm (0.11-0.7) 08/29/19 12:25 Absolute Eosinophils 0.00 k/cumm (0.0-0.7) 08/29/19 12:25 Absolute Basophils 0.01 k/cumm (0.0-0.2) 08/29/19 12:25 Sodium 142 mmol/L (136-145) 08/31/19 06:47 Potassium 3.9 mmol/L (3.5-5.1) 08/31/19 06:47 Chloride 108 mmol/L (98-107) H 08/31/19 06:47 Carbon Dioxide 23.9 mmol/L (21.0-32.0) 08/31/19 06:47 Anion Gap 10.1 mmol/L (3-11) 08/31/19 06:47 BUN 28 mg/dL (7-18) H 08/31/19 06:47 Creatinine 1.78 mg/dL (0.70-1.30) H 08/31/19 06:47 Estimated GFR/1.73 m2 36.96 (mL/min/1.73m2) 08/31/19 06:47 Glucose 76 mg/dL (74-106) 08/31/19 06:47 Hemoglobin A1c 5.6 % (3.8-5.6) 08/31/19 06:47 Calcium 8.1 mg/dL (8.5-10.1) L 08/31/19 06:47 Magnesium 2.1 mg/dL (1.8-2.4) 08/29/19 12:25 Total Bilirubin 0.7 mg/dL (0.2-1.0) 08/30/19 06:15 AST 26 U/L (15-37) 08/30/19 06:15 ALT 20 U/L (16-63) 08/30/19 06:15 Alkaline Phosphatase 95 U/L (46-116) 08/30/19 06:15 Troponin I < 0.05 ng/Ml (<0.06) 08/29/19 12:25 Total Protein 5.9 g/dL (6.4-8.2) L 08/30/19 06:15 Albumin 3.0 g/dL (3.4-5.0) L 08/30/19 06:15 Triglycerides 107 mg/dL (<150) 08/31/19 06:47 Total Cholesterol 142 mg/dL (<200) 08/31/19 06:47 LDL Cholesterol, Calc 79 mg/dL (<100) 08/31/19 06:47 HDL Cholesterol 42 mg/dL (40-60) 08/31/19 06:47 TSH 1.60 uIU/mL (0.36-3.74) 08/31/19 06:47 Urine Color Yellow (Yellow) 08/29/19 14:52 Urine Clarity Clear (Clear) 08/29/19 14:52 Urine pH 6.0 (5-8) 08/29/19 14:52 Ur Specific [place] >= 1.030 (1.005-1.025) H 08/29/19 14:52 Urine Protein 100 mg/dL (Negative) H 08/29/19 14:52 Urine Ketones Negative mg/dL (Negative) 08/29/19 14:52 Urine Blood Moderate (Negative) H 08/29/19 14:52 Urine Nitrite Negative (Negative) 08/29/19 14:52 Urine Bilirubin Negative (Negative) 08/29/19 14:52 Urine Urobilinogen 0.2 EU/dL (Up TO 0.2) 08/29/19 14:52 Ur Leukocyte Esterase Negative (Negative) 08/29/19 14:52 Urine RBC 5-10 HPF (0-2) H 08/29/19 14:52 Urine WBC 3-5 HPF (0-5) 08/29/19 14:52 Ur Epithelial Cells Moderate HPF (Negative) 08/29/19 14:52 Urine Crystals Negative HPF (Negative) 08/29/19 14:52 Urine Bacteria Few HPF (Negative) 08/29/19 14:52 Urine Casts 0-2 fine granular LPF (Negative) 08/29/19 14:52 Urine Mucus Negative (Negative) 08/29/19 14:52 Ur Culture Indicated? No/sq. contamination 08/29/19 14:52 Urine Glucose 100 mg/dL (Negative) 08/29/19 14:52
[2019-09-01] MEDS: Simvastatin 10 MG TAB PO (21:32)
[2019-09-01] MEDS: QUEtiapine 25 MG TAB 12.5 MG PO (21:33)
[2019-09-01] MEDS: Lisinopril 5 MG TAB 10 MG PO (21:33)
[2019-09-02 03:40] VITALS: BP 152/77; PULSE 65; RESP 18; TEMP 36.5; O2SAT 98
[2019-09-02 06:43] LABS: HCT 34.4 % (40.0-50.0); HGB 11.6 g/dL (13.5-17.5); Mean Corp. HGB Concentration 33.7 g/dL (32.0-36.0); Mean Corpuscular Hemoglobin 30.4 pg (27.0-33.0); Mean Corpuscular Volume 90.3 fL (80-95); Mean Platelet Volume 10.1 fL (8.0-11.0); Platelet Count 111 x1000/uL (130-400); RBC 3.81 m/cumm (4.50-6.00); White Blood Cell Count 7.07 k/cumm (4.4-10.8)
[2019-09-02 06:55] LABS: Anion Gap 9.7 mmol/L (3-11); BUN 31 mg/dL (7-18); CO2 24.3 mmol/L (21.0-32.0); Calcium 8.4 mg/dL (8.5-10.1); Chloride 108 mmol/L (98-107); Estimated GFR 38.97 (mL/min/1.73m2); Glucose 90 mg/dL (74-106); Potassium 3.5 mmol/L (3.5-5.1); Sodium 142 mmol/L (136-145)
[2019-09-02 07:26] VITALS: BP 172/90; BP 88/55; PULSE 60; TEMP 36.7; O2SAT 97
[2019-09-02 07:32] LABS: Iron 40 ug/dL (65-175); Total Iron Binding Capacity 175 ug/dL (250-450); Transferrin Sat 23 % (20-55)
[2019-09-02 07:47] VITALS: O2SAT 97
[2019-09-02] MEDS: Aspirin E.C. 81 MG TABEC PO (08:14)
[2019-09-02] MEDS: amLODIPine 5 MG TAB PO (08:14)
[2019-09-02] MEDS: Carbidopa 25/Levodopa 100 TAB PO ×2 (08:14→12:19)
[2019-09-02 08:47] VITALS: BP 122/69; PULSE 77; O2SAT 98
--- NOTE | 2019-09-02 11:25 | PT.INTREAT ---
Date of service: 09/02/19 Time of Service: 11:25 PT Notes Visit Reasons: UNCONTROLLED HTN, DIZZINESS WITH NAUSEA 09/02/2019 SUBJECTIVE: Kevin states he has had improved dizziness since he was admitted. He notes when his blood pressure drops and does pass out without any warning. He does not want to fall. He is hopeful to go home today. OBJECTIVE: Supine in bed. It does take some encouragement to get pt to participate in PT this morning but eventually is agreeable. TRANSFERS Supine to sit: S Sit to supine: S Sit to stand: S Stand to sit: S GAIT Device: FWW Weight bearing: Full Assist: CGA Distance: 100'x2 Deviation: 1 sit rest break due to light dizziness, fatigue in his LE's and nausea. ASSESSMENT: Mild symptom provocation with increase in gait distance. He is fearful of falling if he does have an episode of dizziness. Pt would benefit from use of FWW at home to increase safety and independence with gait. PLAN: Continue current POC. Treatment time: 15 Margaret Urbina, SUJIT
--- NOTE | 2019-09-02 14:48 | DSE_ITS ---
Date of service: 09/02/19 Time of Service: 14:48 DS: Diagnosis Discharge Diagnosis (1) Parkinson disease: Status: Chronic (2) Essential tremor: Status: Acute (3) Orthostatic hypotension: Status: Acute (4) Memory loss: Status: Acute (5) REM sleep behavior disorder: Status: Acute (6) Visual hallucinations: Status: Acute Discharge Plan Disposition Patient Disposition: HOME W/HOME HEALTH SERVICE Condition: Stable Discharge Details Chief Complaint: GenMedical Clinical Impression: Dizziness, Generalized weakness, Accelerated hypertension, Nausea Reason For Visit: UNCONTROLLED HTN, DIZZINESS WITH NAUSEA Admit Date/Time: 08/29/19 17:31 Admit Provider: Lonnie Patton Attending Provider: Lonnie Patton Primary Care Provider: Amalia Villanueva ED Provider: Karla Goldstein Hospital Course Hospital Course: 79-year-old smoker presented with vertigo and uncontrolled hypertension in the setting of subacute generalized weakness and loss of appetite and frequent falls, having stopped his outpatient antihypertensives. Due to the falls and local trauma, CT of the head, cervical spine, chest, abdomen and pelvis were done and showed no acute disease. Initially the concern was cerebellar dysfunction, and MRI/MRA was done, which also showed no stroke or other acute disease. He was evaluated by Dr. Yang who felt like his major problem was Parkinson's disease, and started him on Sinemet. He had a significant response to the Sinemet with increased movement including ambulation with physical therapy, and increased oral intake. Physical therapy felt he was safe to discharge with a walker and one-to-one care with his son. Dr. Yang felt like he could benefit from increase Sinemet, but was concerned about the side effect of orthostatic hypotension, so this was deferred. The patient's elevated blood pressure was initially treated with 5 mg amlodipine and 10 mg lisinopril, as well as IV metoprolol. He was orthostatic throughout his time in the hospital. His average blood pressures were decreasing, so the amlodipine was decreased to 2.5 mg and lisinopril to 5 mg at at bedtime. Balance between treating the blood pressure with the patient's history of vascular disease and the orthostatic hypotension was discussed. Further titration of blood pressure agents to be done as outpatient. Of note, though the patient was overdose static the morning of discharge with systolic blood pressure dropping from 170 to 88, he was not consistently symptomatic. He was educated on getting up slowly especially after using the restroom or eating. Patient had mild acute renal failure on top of chronic renal insufficiency with a creatinine on admission of 2.06. As above, lisinopril was added for blood pressure, and his creatinine improved despite the addition of this. His nabumetone was held, and further NSAIDs should likely be avoided given his degree of renal insufficiency. CT of the abdomen pelvis done due to falls did confirm lumbar disc disease. Anemia was noted, which has been chronic. Was stable at discharge, with normal iron studies. Recent B12 was also normal. This is likely related to renal insufficiency. Thrombocytopenia was also noted. He was not on heparin. This does look like a gradual trend. His albumin is also low, raising concern for hepatic fibrosis as an etiology. This can be followed as an outpatient. Significant emphysema was noted on the chest CT. Patient was precontemplation regarding quitting smoking, and this was discussed. Home Meds and New Rx's Prescriptions: New quetiapine 25 mg Tablet 12.5 mg PO HS Qty: 15 RF: 2 acetaminophen [Tylenol] 325 mg Tablet 650 mg PO Q4H PRN PRNQty: 0 RF: 0 polyethylene glycol 3350 17 gram Powder In Packet 17 g PO DAILY PRN PRN (Reason: Constipation) Qty: 1 RF: 2 aspirin 81 mg Tablet,Delayed Release (Dr/Ec) 81 mg PO DAILY Qty: 90 RF: 0 docusate sodium [Colace] 100 mg Capsule 100 mg PO TID PRN PRNQty: 100 RF: 2 lisinopril 5 mg Tablet 5 mg PO HS Qty: 30 RF: 2 carbidopa-levodopa 25-100 mg Tablet 1 tab PO TID@0800,1200,1700 Qty: 90 RF: 2 ondansetron 4 mg tablet,disintegrating 4 mg PO Q8H PRN (Reason: nausea) Qty: 14 RF: 0 amlodipine 2.5 mg tablet 2.5 mg PO DAILY Qty: 30 RF: 1 Continued simvastatin 10 mg tablet 10 mg PO HS Qty: 90 RF: 4 Discontinued nabumetone 500 mg tablet 500 mg PO BID Qty: 60 RF: 2 Discharge Instructions Instructions: Parkinson Disease (DC), Hypotension (DC) Additional Instructions: whanau support worker the new medications for Parkinsons and low dose blood pressure medications from the pharmacy Come to standing and change positions slowly, especially after using the toilet or eating. Stand Alone Forms: Nursing Discharge Form Referrals: Amalia Villanueva MD [Primary Care Provider] - 09/07/19 11:00 am Ashley Yang MD [ [facility] STAFF PHYSICIAN] - 10/15/19 9:00 am (Hospital consult, new diagnosis parkinsons complicated by orthostatic hypotension) Activity:: Activity as Tolerated Equipment/Supplies:: Walker Diet:: As Tolerated Discharge Orders Discharge Orders: Discharge Order (Routine); Ordered 09/02/19 Ordered By: David Haas DS: Summary Status at Discharge Functional status at discharge: uses cane/walker Overall status at discharge: other (Improved from recent baseline) Mental Status: mental status grossly normal and other (Some memory deficit ) Speech and Movement: speech clear and other (Movement still slow but improved) Mood: congruent mood and other (Some memory deficit ) Affect: normal affect Exam Narrative Exam Narrative: General: On exam he is sitting up in a chair eating comfortably. He is very hard of hearing. HEENT: Mucous membranes moist, conjunctive are clear. No nystagmus, extraocular motion intact. Cardiovascular: Regular rate and rhythm, no murmurs gallops or rubs. Lungs: Clear to auscultation bilaterally normal effort Abdomen: Active bowel sounds, soft, nontender/nondistended. Extremities: No cyanosis clubbing or edema. Neurologic: Moving all 4 extremities. Minimal tremor in right arm with hands extended, none at rest. Grossly normal coordination and minimal tremor with using utensils. Muscle tone is not stiff. Psych Mental Status: mental status grossly normal and other (Some memory deficit ) Speech and Movement: speech clear and other (Movement still slow but improved) Mood: congruent mood and other (Some memory deficit ) Affect: normal affect DS: Data Vitals/I&O Vitals and I&O: Vital Signs Temperature 36.7 C 09/02/19 07:26 Temperature Source Tympanic 09/02/19 07:26 Pulse 77 09/02/19 08:47 Pulse Rhythm Regular 09/02/19 08:30 Pulse 81 08/29/19 13:32 Respiratory Rate 18 09/02/19 03:40 Respiratory Effort Non-Labored 09/02/19 08:30 Respiratory Depth Normal 09/02/19 08:30 Respiratory Pattern Normal 09/02/19 08:30 Blood Pressure 122/69 09/02/19 08:47 Blood Pressure Mean 106 08/29/19 17:01 Blood Pressure Position Supine 08/29/19 12:08 Pulse Oximetry 98 09/02/19 08:47 Oxygen Delivery Method Room Air 09/02/19 08:47 Oxygen Flow Rate 0 09/02/19 08:47 Pain Level 0 09/02/19 07:26 Comment 09/02/19 08:47 Intake & Output 09/01/19 09/02/19 09/02/19 23:59 11:59 23:59 Intake Total 960 / 2805.0 120 / 600 480 / 600 Output Total 900 / 2000 400 / 400 Balance 60 / 805.0 -280 / 200 480 / 200 Weight 69.1 kg Intake: IV 720 / 2445.0 Oral 240 / 360 120 / 600 480 / 600 Output: Urine 900 / 2000 400 / 400 Other: Urine Color Yellow Yellow Urine Appearance Clear Clear Urine Odor None Voiding Methods Urinal Urinal Data Completed and Pending Labs on day of discharge: Labs from last 24 hours 09/02/19 09/02/19 09/02/19 06:15 06:15 06:15 WBC 7.07 RBC 3.81 L Hgb 11.6 L Hct 34.4 L MCV 90.3 MCH 30.4 MCHC 33.7 RDW 14.0 Plt Count 111 L MPV 10.1 Sodium 142 Potassium 3.5 Chloride 108 H Carbon Dioxide 24.3 Anion Gap 9.7 BUN 31 H Creatinine 1.70 H Estimated GFR/1.73 m2 38.97 Glucose 90 Calcium 8.4 L Iron 40 L TIBC 175 L Transferrin % Sat 23 PFSH Medical History (Updated 09/01/19 @ 13:27 by David Haas) Anemia (Chronic) CKD (chronic kidney disease) (Chronic) Essential hypertension (Inactive 09/25/13) Hyperlipidemia (Inactive 06/20/03) Parkinson disease (Chronic) Smoker (Inactive) 50 year pack history Syncope (Chronic) Surgical History Extraction of cataract 10/2002 Status post AAA (abdominal aortic aneurysm) repair (Acute) Social History Smoking/Tobacco Use Status: Current every day Tobacco Type: cigarettes Tobacco: How many years used: 60 Quit status: not considering quitting Second Hand Exposure: Yes Alcohol Intake: never Caregiver/Support person: Yes Household members: other Details: Son Housing: house Communication Needs: Hard of Hearing Do you need help understanding health information?: Rarely Pets and animals: No Sexually active: No Do you think of yourself as: straight/heterosexual Current gender identity: male What is your relationship status?: How often do you talk on the phone with friends or family?: decline to answer How often do you get together with friends or relatives?: decline to answer How often do you attend christian or lutheran services?: decline to answer Do you belong to any clubs or organized social groups?: decline to answer Panel score (0-1 are the most socially isolated patients): 0 What type of physical activity do you participate in: none Frequency: does not exercise Carmen/Shinto: No preference Special carmen needs: No Seatbelt use: always Drive intox or ride w/intox local company hazmat driver: No
--- NOTE | 2019-09-02 16:00 | PDOC.HHF2F ---
Home Health Certification Home Health Certification: 1. Encounter Date and Reason I certify that YAW CHAVIS was seen by David Haas on 09/02/19 and that I had a [id number] encounter with this patient that meets the physician face to face encounter requirements. 2. Clinical Findings Supporting Skilled Need and Homebound Status I certify that home health services are medically necessary, include either intermittent senior living and/or physical/speech therapy, and that this patient is homebound in that absences from the home require considerable and taxing effort and are infrequent or of short duration, or are attributable to the need to receive medical care. [X] (a) Attached documentation from encounter provides clinical findings supporting skilled need and homebound status (including what assistance patient requires to leave the home). The encounter with the patient was in whole, or in part, for the following medical condition, which is the primary reason for home health care: Parkinsons Disease, orthostatic hypotension, history of falls. Correction: Physical Therapy: Physical therapy needed to establish a home maintenance program and home safety assessment with teaching/gait training. Patient with new diagnosis of parkinsons disease and frequent falls prior to admission Speech Therapy: Homebound: 3. Certification and Authentication I certify that I composed the above information based on my clinical judgement relating to this patient's medical condition and, if applicable, clinical findings communicated to me by the NPP or inpatient physician who performed the Home Health Referral. All further orders will be obtained through ____Emily Villanueva (Community Based Physician - PCP)
--- NOTE | 2019-09-02 16:53 | PDOC.CMDIS ---
- If Service Date Differs Date of service: 09/02/19 Time of Service: 16:53 LACE Index Scoring Tool - Questions: Length of Stay (in days): 4 - 6 (4) Acuity (Admit via E.D.?): Yes Comorbidities: Liver or Renal Disease E.D. Visits: 1 - Answers: Total Score: 13 Risk of Readmission: High Risk Care Management Discharge Reason for Hospitalization: Uncontrolled dizziness with accelerated HTN Discharge Plan: Kevin will be discharged home with new home health PT. He will follow up with his PCP and discharge plan of care. Kevin will transport home via private vehicle with his son Golden. Patient/Family Education Needs: Discharge plan, limitations, follow up plan, Ask Me Three. Services Needed at Discharge: Home Health Care Services, Physical Therapy
== END 2019-09-02 15:57 | disposition home health service (06) | DRG 57 ==
LOC: ER 17:26 → MS 18:49
PROVIDERS: Family Medicine; Admitting Provider Family Medicine; Emergency Provider Physician Assistant; PCP Family Medicine; Visit Provider Family Medicine
DX: G20 Parkinson's disease (principal); N17.9 Acute kidney failure, unspecified; I10 Essential (primary) hypertension; T46.5X6A Underdosing of other antihypertensive drugs, initial encounter; I95.1 Orthostatic hypotension; N18.9 Chronic kidney disease, unspecified; R53.1 Weakness; R29.6 Repeated falls; F50.89 Other specified eating disorder; G47.52 REM sleep behavior disorder; R41.3 Other amnesia; G25.0 Essential tremor; Z68.23 Body mass index [BMI] 23.0-23.9, adult; R11.0 Nausea; D53.9 Nutritional anemia, unspecified; D69.6 Thrombocytopenia, unspecified; E88.09 Other disorders of plasma-protein metabolism, not elsewhere classified; J43.9 Emphysema, unspecified; F17.210 Nicotine dependence, cigarettes, uncomplicated; R44.1 Visual hallucinations; K59.00 Constipation, unspecified
CPT/HCPCS: 36415; 70544; 71250; 80048; 80053; 80061; 85027; 93005; 96361; 96374; 97110; 97162; 97530; 99223; 99232; 99233; 99239; 99285; 70450; 70551; 72125; 74176; 81003; 81015; 83036; 83540; 83550; 83735; 84443; 84484; 85025; 93010; J2405

== ENCOUNTER → 2019-08-31 09:51 | Outpatient (BNVA) | payer MEDICARE, OTHER, SELFPAY ==
--- NOTE | 2019-09-03 09:39 | INDS_ITS ---
Date of service: 09/03/19 Time of Service: 09:40 PT Notes Visit Reasons: [facility] INPATIENT-[facility] Inpatient Physical Therapy Discharge Summary Dates: 09/03/2019 Dates of Service: 08/30/2019 through 09/02/2019 This is a clinical summary of care provided on the duration of dates listed above. No charge was made in the completion of this documentation. Referring Doctor: Kodi Louie PT Orders: PT CONSULT: Fall safety assessment Precautions: Fall risk Patient Profile/Admitting Diagnosis: Patient is an 79-year-old male admitted to [facility] on August 29, 2019 secondary to generalized weakness, dizziness, vomiting and nausea. PMHX: Medical History Essential hypertension (Inactive 09/25/13) Hyperlipidemia (Inactive 06/20/03) Smoker (Inactive) 50 year pack history Syncope (Chronic) Multisegmental cervical spine stenosis Chronic kidney disease Surgical History Extraction of cataract 10/2002 Status post AAA (abdominal aortic aneurysm) repair (Acute) Social History/Home Situation: Patient lives in a single level home with his son with 2 stairs into the dwelling with railing. Current Functional Limitations: Decreased ability to perform independent transfers sit to stand, standing and ambulation secondary to nauseousness Equipment Owned/DME: Front wheeled walker. Patient reports that he is been using it more regularly as of late secondary to fall risk. Notices better stability when he uses his walker. Subjective: NT Objective: NT General Observation: NT Mental Status: NT Pain:NT Vital Signs: NT ROM: Right Upper Extremity: 90 degrees active flexion and scapular plane abduction, active assisted to 140. Elbow flexion extension within normal limits, forearm supination and pronation and wrist flexion extension within functional limits pain-free Left Upper Extremity: Within functional limits Right Lower Extremity: Within functional limits Left Lower Extremity: Within functional limits Cervical spine active range of motion limited in articular pattern in all planes. Strength: Right Upper Extremity: 3-/5 glenohumeral joint flexion and abduction, 4/5 bicep tricep. 4/5 acute care nursing assistant. 3/5 external rotation 4/5 internal rotation Left Upper Extremity: 4/5 throughout glenohumeral joint flexion, abduction, internal and external rotation, bicep and tricep. 4/5 acute care nursing assistant. Right Lower Extremity: 4+/5 throughout hip flexion, seated AB and adduction. Patient perform straight leg raise with 0 degree lag. 4+/5 quads 4/5 hamstring. Ankle dorsiflexion and plantar flexion 4+/5. Great toe extension 4+/5 Left Lower Extremity: 4+/5 hip flexion, AB and adduction. Straight leg raise 0 degree lag. 4+/5 quads, 4/5 hamstring. Ankle dorsiflexion and plantarflexion 4+/5. Great toe extension 4+/5 Sensation: NT Bed Mobility/Transfers: Supine to sit: supervision Sit to supine: supervision Sit to stand: supervision Stand to sit: supervision Gait: 100 feet x 2 with CGA using FWW with one sit rest break secondary to fatigue and nausea Balance: Static Sitting: Good Dynamic Sitting: Good Static Standing: Fair Dynamic Standing: Fair Assessment: Patient is a 79-year-old [id number]-vywdtnit male referred to physical therapy services with the diagnosis of Parkinson's Disease by neurologist. Patient presents with clinical signs and symptoms consistent with above diagnosis, as demonstrated by the following impairment level findings: Motor control, muscle performance, range of motion associated with neurological condition. No significant myotomal dermatomal discrepancies noted in bilateral upper or lower extremities. Coordination tests were within normal limits for heel aaron rub, alternating supination pronation and tgajqq-op-vqiq touch. Goals: Goals X1 week 1. Supine-Sit: independent NOT MET 2. Sit-Supine: Independent NOT MET 3. Sit-Stand: Standby assist to front wheel walker MET 4. Stand-Sit: Standby assist from front wheeled walker MET 5. Bed-Chair: Standby assist with front wheeled walker MET 6. Chair-Bed: Standby assist with front wheeled walker MET 7. Gait : 200 feet with front wheeled walker standby assist NOT MET 8. Balance: good static sitting and standing balance. NOT MET DISCHARGE RECOMMENDATIONS: Patient will benefit from home health PT services in order to progress mobility level using least restrictive assistive ambulatory device, assess home safety, identify additional equipment needs, and establish a functional maintenance program that will increase ability of patient to remain at home. TREATMENT CODE/TIME: NC. Thank you very much for this referral. Nanci Casillas PT, DPT, CLT [facility] Inpatient PT at [place], [place]
== END ==
PROVIDERS: PCP Family Medicine; Referring Provider Family Medicine; Visit Provider Psychiatry & Neurology Neurology
DX: R69 Illness, unspecified (principal)

== ENCOUNTER → 2019-10-15 09:08 | Outpatient (BNVA) | payer MEDICARE, OTHER, SELFPAY | PROVIDERS: PCP Family Medicine; Referring Provider Family Medicine; Visit Provider Psychiatry & Neurology Neurology | DX: G20 Parkinson's disease (principal); G25.0 Essential tremor; I95.1 Orthostatic hypotension; R44.1 Visual hallucinations; G47.52 REM sleep behavior disorder; R41.3 Other amnesia; K59.00 Constipation, unspecified | CPT/HCPCS: 99214; 99443 ==

== ENCOUNTER → 2019-12-17 10:15 | Outpatient (BNVA) | payer MEDICARE, OTHER, SELFPAY | PROVIDERS: PCP Family Medicine; Referring Provider Family Medicine; Visit Provider Psychiatry & Neurology Neurology | DX: G25.0 Essential tremor (principal); G20 Parkinson's disease; I95.1 Orthostatic hypotension; R41.3 Other amnesia; G47.52 REM sleep behavior disorder; K59.00 Constipation, unspecified | CPT/HCPCS: 99214 ==

== ENCOUNTER 2019-12-23 21:36 | Outpatient (REF) | payer MEDICARE, OTHER, SELFPAY ==
[2019-12-23 21:43] LABS: Abs Immature Grans 0.01 k/cumm (0.0-0.09); Absolute Basophil Count 0.01 k/cumm (0.0-0.2); Absolute Eosinophil Count 0.18 k/cumm (0.0-0.7); Absolute Lymphocyte Count 1.18 k/cumm (1.2-3.4); Absolute Monocyte Count 0.54 k/cumm (0.11-0.7); Absolute Neutrophil Count 3.37 k/cumm (1.2-6.7); Basophils % 0.2; Eosinophils % 3.4; HCT 39.5 % (40.0-50.0); Immature Grans % 0.2 %; Lymphocytes % 22.3; Mean Corp. HGB Concentration 32.9 g/dL (32.0-36.0); Mean Corpuscular Hemoglobin 29.9 pg (27.0-33.0); Mean Corpuscular Volume 90.8 fL (80-95); Mean Platelet Volume 11.4 fL (8.0-11.0); Monocytes % 10.2; Neutrophils % 63.7; Platelet Count 131 x1000/uL (130-400); RBC 4.35 m/cumm (4.50-6.00); RBC Distribution Width 14.1 % (11.8-14.1); White Blood Cell Count 5.29 k/cumm (4.4-10.8)
[2019-12-23 22:05] LABS: Iron 63 ug/dL (65-175); Total Iron Binding Capacity 201 ug/dL (250-450); Transferrin Sat 31 % (20-55)
[2019-12-23 22:09] LABS: ALT 11 U/L (16-63); AST 14 U/L (15-37); Albumin 3.4 g/dL (3.4-5.0); Alkaline Phosphatase 115 U/L (46-116); BUN 27 mg/dL (7-18); Bilirubin, Total 0.4 mg/dL (0.2-1.0); CREATININE 1.82 mg/dL (0.70-1.30); Calcium 8.8 mg/dL (8.5-10.1); Calculated LDL 88 mg/dL (<100); Chloride 106 mmol/L (98-107); Cholesterol 146 mg/dL (<200); Estimated GFR 36.02 (mL/min/1.73m2); Ferritin 373 ng/mL (26-388); Glucose 140 mg/dL (74-106); HDL Cholesterol 40 mg/dL (40-60); Potassium 3.7 mmol/L (3.5-5.1); Sodium 139 mmol/L (136-145); Triglyceride 94 mg/dL (<150)
[2019-12-25 15:17] LABS: Albumin 52.8 % (55.8-66.1); Comment (See Note); Monoclonal Spike 10.3 % (None Seen); Total Protein 6.9 g/dL (6.3-8.2)
[2019-12-25 16:15] LABS: Immunotyping, Serum (See Note)
== END 2019-12-23 21:56 ==
LOC: LBN 21:36
PROVIDERS: PCP Family Medicine; Visit Provider Family Medicine
DX: I45.4 Nonspecific intraventricular block (principal); R55 Syncope and collapse; E78.5 Hyperlipidemia, unspecified; D64.9 Anemia, unspecified
CPT/HCPCS: 80053; 80061; 82728; 83540; 83550; 84165; 85025; 86320

== ENCOUNTER 2020-02-10 02:40 | Outpatient (CLI) | payer MEDICARE, OTHER, SELFPAY ==
--- NOTE | 2020-02-10 | DI.RAD_ITS ---
EXAM: XR BONE SURVEY CLINICAL HISTORY: MONOCLONAL GAMMOPATHY, D47.2, ? LYTIC LESIONS. TECHNIQUE: 2D digital imaging was performed. COMPARISON: CR CHEST 2 VIEWS PA,LAT from 06/01/2015 CR Lumbar Spine Complete from 09/25/[address] CHEST/ABD/PEL WO from 08/29/2019 FINDINGS: No evidence of fracture. No lytic lesions are identified. There is an aorto-iliac stent. HEAD AND NECK: Normal. CHEST AND RIBS: Normal. PELVIS: Normal. LONG BONES: Normal. SPINE:Degenerative changes in the spine. IMPRESSION: No osseous lytic lesions. DATA REPOSITORY: RADIATION DOSE DELIVERED:
== END 2020-02-10 03:00 ==
PROVIDERS: PCP Family Medicine; Visit Provider Internal Medicine
DX: G20 Parkinson's disease (principal); I95.1 Orthostatic hypotension; R41.3 Other amnesia; G47.52 REM sleep behavior disorder; K59.00 Constipation, unspecified; D47.2 Monoclonal gammopathy
CPT/HCPCS: 99215; 77075

== ENCOUNTER 2020-02-15 01:53 | Outpatient (CLI) | payer MEDICARE, OTHER, SELFPAY ==
[2020-02-16 10:40] LABS: IgA 152 mg/dL (85-499); IgG 1471 mg/dL (610-1,616); IgM 227 mg/dL (35-242); Lambda Free Light Chain 1.94 mg/dL (0.57-2.63)
== END 2020-02-15 02:13 ==
PROVIDERS: PCP Family Medicine; Visit Provider Internal Medicine
DX: D47.2 Monoclonal gammopathy (principal); R55 Syncope and collapse; Z86.73 Personal history of transient ischemic attack (TIA), and cerebral infarction without residual deficits
CPT/HCPCS: 36415; 82784; 99214; 83883; 93880

== ENCOUNTER 2020-02-15 08:30 | Outpatient (CLI) | payer MEDICARE, OTHER, SELFPAY ==
--- NOTE | 2020-02-15 10:47 | DI.US_ITS ---
EXAM: US CAROTID CLINICAL HISTORY: H/O SYNCOPE, LT SIDED OLD INFARCTS, R55. TECHNIQUE: Ultrasound carotids performed using grayscale, color-flow, and spectral Doppler imaging. COMPARISON: No exams were available for comparison FINDINGS: RIGHT CAROTID ARTERY: Plaque: Minimal. Velocity elevation: None. LEFT CAROTID ARTERY: Plaque: Minimal. Velocity elevation: None. VERTEBRAL ARTERIES: Antegrade flow. Measurements: R Bulb: 31.5cm/s PS / 10.1cm/s ED R CCA: 45.7cm/s PS / 12.1cm/s ED R ECA: PS / ED R ICA Prox: 75.9cm/s PS /11.6cm/s ED R ICA Mid: 73.9cm/s PS / 12.2cm/s ED R ICA Distal: 112.9cm/s PS /37cm/s ED R Vert: 59.8cm/s PS / 16.1cm/s ED R SVR: 2.47 R DVR: 3.06 L Bulb: 45cm/s PS /9.5cm/s ED L CCA: 47.1cm/s PS / 12cm/s ED L ECA: PS / ED L ICA Prox:64.3cm/s PS / 19.3cm/s ED L ICA Mid: 77cm/sPS / 24.8cm/s ED L ICA Distal: 118.5cm/s PS / 37cm/s ED L Vert: 89.7cm/s PS / 21.7cm/s ED L SVR: 2.52 L DVR: 3.08 IMPRESSION: No evidence for hemodynamically significant carotid stenosis. Criteria for Carotid Stenosis: Normal: ICA PSV <125 cm/s no plaque or intimal thickening is visible. <50% stenosis: ICA PSV <125 cm/s and plaque or intimal thickening is visible. 50-69% stenosis: ICA PSV is 125-250 cm/s and plaque is visible. >70% stenosis to near occlusion: ICA PSV >250 cm/s with visible plaque and luminal narrowing. DATA REPOSITORY:
== END 2020-02-15 08:50 ==
PROVIDERS: PCP Family Medicine; Visit Provider Family Medicine
DX: Z86.73 Personal history of transient ischemic attack (TIA), and cerebral infarction without residual deficits (principal); R55 Syncope and collapse
CPT/HCPCS: 93880

== ENCOUNTER → 2020-04-13 10:17 | Outpatient (BNVA) | payer MEDICARE, OTHER, SELFPAY | PROVIDERS: PCP Family Medicine; Referring Provider Family Medicine; Visit Provider Psychiatry & Neurology Neurology | DX: G25.0 Essential tremor (principal); G20 Parkinson's disease; I95.1 Orthostatic hypotension; R41.3 Other amnesia; G47.52 REM sleep behavior disorder; K59.00 Constipation, unspecified; I12.9 Hypertensive chronic kidney disease with stage 1 through stage 4 chronic kidney disease, or unspecified chronic kidney disease; N18.9 Chronic kidney disease, unspecified | CPT/HCPCS: 99214 ==

== ENCOUNTER 2020-05-25 03:14 | Outpatient (CLI) | payer MEDICARE, OTHER, SELFPAY ==
[2020-05-25 10:49] LABS: Abs Immature Grans 0.03 10^3/uL (0.0-0.06); Absolute Basophil Count 0.02 10^3/uL (0.0-0.2); Absolute Eosinophil Count 0.16 10^3/uL (0.0-0.7); Absolute Lymphocyte Count 1.34 10^3/uL (1.2-3.4); Absolute Monocyte Count 0.56 10^3/uL (0.1-0.8); Absolute Neutrophil Count 4.32 10^3/uL (1.2-6.7); Basophils % 0.3; Eosinophils % 2.5; HGB 12.7 g/dL (13.5-17.5); Immature Grans % 0.5; Lymphocytes % 20.8; MCH 29.8 pg (27.0-33.0); MCHC 32.6 % (32.0-36.0); MCV 91.5 fL (80-95); MPV 9.6 fL (8.0-11.0); Monocytes % 8.7; Neutrophils % 67.2; Nucleated RBC 0 %; Platelet Count 136 10^3/uL (130-400); RBC 4.26 10^6/uL (4.36-5.78); RDW 13.5 % (11.8-14.1); RDW-SD 45.6 fL; WBC 6.43 10^3/uL (4.4-10.8)
[2020-05-25 11:15] LABS: AST 10 U/L (15-37); Albumin 3.6 g/dL (3.4-5.0); Alkaline Phosphatase 123 U/L (46-116); Anion Gap 6.6 mmol/L (3-11); BUN 33 mg/dL (7-18); Bilirubin, Total 0.5 mg/dL (0.2-1.0); CO2 28.4 mmol/L (21.0-32.0); CREATININE 1.79 mg/dL (0.70-1.30); Calcium 8.7 mg/dL (8.5-10.1); Chloride 104 mmol/L (98-107); Estimated GFR 36.63 (mL/min/1.73m2); Glucose 93 mg/dL (74-106); Potassium 3.8 mmol/L (3.5-5.1); Sodium 139 mmol/L (136-145); Total Protein 7.4 g/dL (6.4-8.2)
[2020-05-25 11:21] LABS: ALT < 6 U/L (16-63)
[2020-06-01 16:15] LABS: IgA 141 mg/dL (84.5-499); IgG 1380 mg/dL (610-1616); IgM 225 mg/dL (35-242); Kappa Free Light Chain 23.7 mg/dL (0.33-1.94)
[2020-06-01 16:16] LABS: Albumin 3.2 g/dL (3.4-4.7); Lambda Free Light Chain 2.65 mg/dL (0.57-2.63); Total Protein 6.7 g/dL (6.3-7.9)
[2020-06-01 16:19] LABS: Monoclonal Spike 0.9 g/dL
[2020-06-01 16:20] LABS: Immunotyping, Serum See Comments
== END 2020-05-25 03:34 ==
PROVIDERS: PCP Family Medicine; Visit Provider Internal Medicine
DX: D47.2 Monoclonal gammopathy (principal)
CPT/HCPCS: 80053; 82784; 83883; 84165; 85025; 86320

== ENCOUNTER → 2020-07-06 08:12 | Outpatient (BNVA) | payer MEDICARE, OTHER, SELFPAY | PROVIDERS: PCP Family Medicine; Referring Provider Family Medicine; Visit Provider Psychiatry & Neurology Neurology | DX: G20 Parkinson's disease (principal); I95.1 Orthostatic hypotension; R41.3 Other amnesia; G47.52 REM sleep behavior disorder; R44.1 Visual hallucinations | CPT/HCPCS: 99213; 99442 ==

== ENCOUNTER 2020-09-27 03:43 | Outpatient (CLI) | payer MEDICARE, OTHER, SELFPAY ==
[2020-09-27 15:35] LABS: Abs Immature Grans 0.03 10^3/uL (0.0-0.06); Absolute Basophil Count 0.03 10^3/uL (0.0-0.2); Absolute Eosinophil Count 0.13 10^3/uL (0.0-0.7); Absolute Lymphocyte Count 1.28 10^3/uL (1.2-3.4); Absolute Monocyte Count 0.53 10^3/uL (0.1-0.8); Basophils % 0.5; HCT 34.4 % (40.0-50.0); HGB 11.4 g/dL (13.5-17.5); Immature Grans % 0.5; Lymphocytes % 19.7; MCH 30.7 pg (27.0-33.0); MCHC 33.1 % (32.0-36.0); MCV 92.7 fL (80-95); MPV 10.3 fL (8.0-11.0); Monocytes % 8.2; Neutrophils % 69.1; Nucleated RBC 0 %; RBC 3.71 10^6/uL (4.36-5.78); RDW 13.9 % (11.8-14.1); RDW-SD 47.1 fL
[2020-09-27 16:01] LABS: ALT 9 U/L (16-63); AST 10 U/L (15-37); Albumin 3.2 g/dL (3.4-5.0); Alkaline Phosphatase 113 U/L (46-116); Anion Gap 8.8 mmol/L (3-11); BUN 30 mg/dL (7-18); Bilirubin, Total 0.6 mg/dL (0.2-1.0); CO2 27.2 mmol/L (21.0-32.0); CREATININE 1.9 mg/dL (0.70-1.30); Calcium 8.8 mg/dL (8.5-10.1); Chloride 103 mmol/L (98-107); Estimated GFR 34.19 (mL/min/1.73m2); Glucose 112 mg/dL (74-106); Potassium 3.5 mmol/L (3.5-5.1); Sodium 139 mmol/L (136-145); Total Protein 6.7 g/dL (6.4-8.2)
[2020-09-27 16:13] LABS: Diff Comment Diff Reviewed; RBC Morphology Normal
[2020-09-28 10:57] LABS: IgA 132 mg/dL (85-499); IgG 1193 mg/dL (610-1,616); IgM 203 mg/dL (35-242); Kappa Free Light Chain 19.42 mg/dL (0.33-1.94); Lambda Free Light Chain 2.44 mg/dL (0.57-2.63)
[2020-09-28 15:10] LABS: Albumin 55.2 % (55.8-66.1); Comment (See Note); Monoclonal Spike 8.8 % (None Seen); Total Protein 6.6 g/dL (6.3-8.2)
== END 2020-09-27 03:44 | disposition home or self-care (01) ==
LOC: LBO 03:44
PROVIDERS: PCP Family Medicine; Visit Provider Internal Medicine
DX: D47.2 Monoclonal gammopathy (principal)
CPT/HCPCS: 36415; 80053; 82784; 83883; 84165; 85025

== ENCOUNTER → 2020-10-05 10:52 | Outpatient (BNVA) | payer MEDICARE, OTHER, SELFPAY | PROVIDERS: PCP Family Medicine; Referring Provider Family Medicine; Visit Provider Psychiatry & Neurology Neurology | DX: G20 Parkinson's disease (principal); G25.0 Essential tremor; I95.1 Orthostatic hypotension; R41.3 Other amnesia; G47.52 REM sleep behavior disorder; R44.1 Visual hallucinations | CPT/HCPCS: 99214 ==

== ENCOUNTER 2020-11-30 10:21 | Emergency (ER) | payer MEDICARE, OTHER, SELFPAY ==
[2020-11-30] VITALS (37 sets, daily range): BP systolic 169–209; BP diastolic 89–111; PULSE 72–89; RESP 12–23; TEMP 36.4–36.8; O2SAT 84–100
--- NOTE | 2020-11-30 10:30 | DI.CT_ITS ---
Exam(s) CT HEAD WO EXAM: CT HEAD WO CLINICAL HISTORY: new onset seizure. TECHNIQUE: Imaging Protocol: Axial computed tomography images with coronal and sagittal reformatted images were created and reviewed COMPARISON: CT CT HEAD CERVICAL SPINE WO from 08/29/2019 FINDINGS: There are no skull fractures nor fluid in the visualized paranasal sinuses. There is no evidence of intracranial hemorrhage, mass effect, or shift of midline structures. There are no extra-axial fluid collections. The ventricles are not enlarged or shifted and there is no blo od within the ventricular system nor within the basal cisterns. Abundant bilateral periventricular hypodensity is again noted consistent with chronic small vessel di sease. IMPRESSION: No acute intracranial findings on this noninfused CT scan of the brain. No significant change compar ed to August 2019. Chronic small-vessel white matter ischemic changes again noted. RADIATION DOSE DELIVERED: 740.35mGy.cm Total DLP DATA REPOSITORY: All CT scans at this facility are submitted to the National Radiology Data Registry (NRDR) Dose Index Registry (DIR) with the [employer] (A[employer]). RADIATION OPTIMIZATION: All CT scans at this facility use at least one of these dose optimization te chniques: automated exposure control; mA and/or kV adjustment per patient size (includes targeted exa ms where dose is matched to clinical indication); or iterative reconstruction.
--- NOTE | 2020-11-30 10:30 | RT.EKG_ITS ---
APPROVED REPORT Exam: Resting ECG Reason for Exam: SEIZURE Patient Location: E HR:82 bpm ECG Measurements Heart Rate 82 AXIS ME 186 P 53 QRSd 85 QRS 17 QT 405 T -31 QTc 473 Conclusion Sinus rhythm...normal P axis, V-rate 60- 99 Nonspecific repol abnormality, diffuse leads...ST dep, T flat/neg, ant/lat/inf sinus rhythm at 82, normal axis, nonspecific ST changes, nonspecific ST changes, nondiagnostic EKG
[2020-11-30] MEDS: Ondansetron 4 MG/2 ML VIAL (10:47)
--- NOTE | 2020-11-30 10:49 | W.ED.GENAD ---
Discharge Plan Disposition Patient Disposition: HOME Condition: Stable Discharge Details Clinical Impression: Episode of unresponsiveness, Anemia, Hypokalemia, Hematuria Primary Care Provider: Amalia Villanueva ED Provider: Claudia Higginbotham Home Meds and New Rx's Prescriptions: Continued quetiapine 25 mg tablet 25 mg PO HS Qty: 90 RF: 3 docusate sodium [Colace] 100 mg capsule 200 mg PO DAILY RF: 0 simvastatin 10 mg tablet 10 mg PO HS Qty: 90 RF: 4 ondansetron 4 mg tablet,disintegrating 4 mg PO Q8H PRN (Reason: nausea) Qty: 14 RF: 0 aspirin 81 mg Tablet,Delayed Release (Dr/Ec) 81 mg PO DAILY Qty: 90 RF: 0 No Action carbidopa-levodopa 25-100 mg tablet 1 tab PO TID Qty: 270 RF: 3 carbidopa-levodopa 25-100 mg tablet extended release 1 tab PO QHS Qty: 90 RF: 3 Discharge Instructions Instructions: Hypokalemia (ED), Hematuria (ED), New-Onset Seizure in Adults (ED), Anemia (ED) Additional Instructions: Please return immediately to the emergency department if you develop any new or worsening symptoms, if your condition does not improve as expected, or if you become otherwise concerned. It is extremely important that you call soon as possible to make an appointment to be seen in follow-up for this visit by your primary care doctor and neurology as we discussed. Referrals: Amalia Villanueva MD [Primary Care Provider] - Ashley Yang MD [ [facility] STAFF PHYSICIAN] - Discharge Data Discharge Date/Time-TO BE ENTERED AT DEPARTURE: 11/30/20 17:24 Medical Decision Making Kevin Whitmore is an 80-year-old man with history of Parkinson's disease, hypertension, chronic kidney disease who presented to the emergency department with generalized shaking and unresponsiveness that lasted for approximately 20 minutes. On exam patient is now at his baseline per patient and his son who accompanies him. He is well nontoxic-appearing. Benign cardiopulmonary exam. Benign neurologic exam. Concern for seizure versus syncope versus sequelae of Parkinson's versus other. Exam/history at this time is not consistent with meningitis, sepsis, acute aortic pathology. Plan for CT head, EKG, screening labs, IV placement, telemetry. Will monitor and reassess. CT head negative. Labs reviewed, hemoglobin 12.2 in setting of chronic anemia, potassium 3.1, creatinine 1.9 which is at baseline, small amount of blood in urine. I discussed patient presentation results with Dr. Yang of neurology, who states that patient has had many episodes of apparent unresponsiveness, sometimes with shaking in the past. Unclear what etiology of symptoms are. She requests phototypesetting equipment monitor for discharge, recommend no antiepileptic medication at this time given no definitive seizure, states that she will see patient in follow-up. Patient placed on care management list for outpatient follow-up with neurology. Patient hypertensive at discharge. Patient reports that he feels fine and wants to leave. He denies having any symptoms. Exam/history at this time is not consistent with hypertensive emergency/urgency, patient needs outpatient follow-up for asymptomatic hypertension. Patient placed on care management list for outpatient follow-up with PCP. surveillance monitor placed by respiratory therapy. I had a lengthy discussion with Patient regarding return to emergency department precautions, home care, and importance of outpatient follow-up. Pt verbalizes understanding of the plan and is amenable. Patient discharged to home with clear plan for outpatient follow-up. All questions were answered. Disposition decision was made weighing the risks and benefits of hospitalization versus outpatient treatment, the risk for further decompensation, and the patient's wishes. Medical Records Medical records reviewed: Yes I reviewed the patient's medical records. Imaging Data Radiologic Study: Attestation: I personally reviewed and interpreted this imaging study as follows: Radiologist's impression: EXAM: CT HEAD WO CLINICAL HISTORY: new onset seizure. TECHNIQUE: Imaging Protocol: Axial computed tomography images with coronal and sagittal reformatted images were created and reviewed COMPARISON: CT CT HEAD CERVICAL SPINE WO from 08/29/2019 FINDINGS: There are no skull fractures nor fluid in the visualized paranasal sinuses. There is no evidence of intracranial hemorrhage, mass effect, or shift of midline structures. There are no extra-axial fluid collections. The ventricles are not enlarged or shifted and there is no blood within the ventricular system nor within the basal cisterns. Abundant bilateral periventricular hypodensity is again noted consistent with chronic small vessel disease. IMPRESSION: No acute intracranial findings on this noninfused CT scan of the brain. No significant change compared to August 2019. Chronic small-vessel white matter ischemic changes again noted. Lab Data Lab results reviewed: Yes I reviewed the patient's lab results. Labs: Laboratory Tests Range/Units 11/30/20 11/30/20 11/30/20 12:15 12:15 12:20 WBC (4.4-10.8) 10^3/uL 10.48 RBC (4.36-5.78) 10^6/uL 4.08 L Hgb (13.5-17.5) g/dL 12.2 L Hct (40.0-50.0) % 36.5 L MCV (80-95) fL 89.5 MCH (27.0-33.0) pg 29.9 MCHC (32.0-36.0) % 33.4 RDW (11.8-14.1) % 13.4 Plt Count (130-400) 10^3/uL 142 MPV (8.0-11.0) fL 9.4 Immature Gran % 0.5 Neutrophils % 86.5 Lymphocytes % 7.1 Monocytes % 5.4 Eosinophils % 0.3 Basophils % 0.2 Nucleated RBC % % 0 Absolute Neutrophils (1.2-6.7) 10^3/uL 9.07 H Absolute Lymphocytes (1.2-3.4) 10^3/uL 0.74 L Absolute Monocytes (0.1-0.8) 10^3/uL 0.57 Absolute Eosinophils (0.0-0.7) 10^3/uL 0.03 Absolute Basophils (0.0-0.2) 10^3/uL 0.02 Sodium (136-145) mmol/L 139 Potassium (3.5-5.1) mmol/L 3.1 L Chloride (98-107) mmol/L 101 Carbon Dioxide (21.0-32.0) mmol/L 27.1 Anion Gap (3-11) mmol/L 10.9 BUN (7-18) mg/dL 20 H Creatinine (0.70-1.30) mg/dL 1.9 H Estimated GFR/1.73 m2 (mL/min/1.73m2) 34.19 Glucose (74-106) mg/dL 122 H Calcium (8.5-10.1) mg/dL 8.8 Total Bilirubin (0.2-1.0) mg/dL 0.6 AST (15-37) U/L 11 L ALT (16-63) U/L 8 L Alkaline Phosphatase (46-116) U/L 113 Troponin I (<0.06) ng/mL < 0.05 Total Protein (6.4-8.2) g/dL 7.4 Albumin (3.4-5.0) g/dL 3.6 Lipase (73-393) U/L 92 TSH (0.36-3.74) uIU/mL 1.62 Urine Color (Yellow) Yellow Urine Clarity (Clear) Clear Urine pH (5-8) 5.5 Ur Specific Farber (1.005-1.025) >= 1.030 H Urine Protein (Negative) mg/dL 100 H Urine Ketones (Negative) mg/dL Trace H Urine Blood (Negative) Small H Urine Nitrite (Negative) Negative Urine Bilirubin (Negative) Negative Urine Urobilinogen (Up TO 0.2) EU/dL 0.2 Ur Leukocyte Esterase (Negative) Negative Urine RBC (0-2) HPF 3-5 H Urine WBC (0-5) HPF 0-2 Ur Epithelial Cells (Negative) HPF Few Urine Crystals (Negative) HPF Negative Urine Bacteria (Negative) HPF Rare Urine Casts (Negative) LPF 0-2 hyaline Urine Mucus (Negative) Moderate Urine Other (Negative) Ur Culture Indicated? No Urine Glucose (Negative) mg/dL Negative Range/Units 11/30/20 15:15 WBC (4.4-10.8) 10^3/uL RBC (4.36-5.78) 10^6/uL Hgb (13.5-17.5) g/dL Hct (40.0-50.0) % MCV (80-95) fL MCH (27.0-33.0) pg MCHC (32.0-36.0) % RDW (11.8-14.1) % Plt Count (130-400) 10^3/uL MPV (8.0-11.0) fL Immature Gran % Neutrophils % Lymphocytes % Monocytes % Eosinophils % Basophils % Nucleated RBC % % Absolute Neutrophils (1.2-6.7) 10^3/uL Absolute Lymphocytes (1.2-3.4) 10^3/uL Absolute Monocytes (0.1-0.8) 10^3/uL Absolute Eosinophils (0.0-0.7) 10^3/uL Absolute Basophils (0.0-0.2) 10^3/uL Sodium (136-145) mmol/L Potassium (3.5-5.1) mmol/L Chloride (98-107) mmol/L Carbon Dioxide (21.0-32.0) mmol/L Anion Gap (3-11) mmol/L BUN (7-18) mg/dL Creatinine (0.70-1.30) mg/dL Estimated GFR/1.73 m2 (mL/min/1.73m2) Glucose (74-106) mg/dL Calcium (8.5-10.1) mg/dL Total Bilirubin (0.2-1.0) mg/dL AST (15-37) U/L ALT (16-63) U/L Alkaline Phosphatase (46-116) U/L Troponin I (<0.06) ng/mL < 0.05 Total Protein (6.4-8.2) g/dL Albumin (3.4-5.0) g/dL Lipase (73-393) U/L TSH (0.36-3.74) uIU/mL Urine Color (Yellow) Urine Clarity (Clear) Urine pH (5-8) Ur Specific Farber (1.005-1.025) Urine Protein (Negative) mg/dL Urine Ketones (Negative) mg/dL Urine Blood (Negative) Urine Nitrite (Negative) Urine Bilirubin (Negative) Urine Urobilinogen (Up TO 0.2) EU/dL Ur Leukocyte Esterase (Negative) Urine RBC (0-2) HPF Urine WBC (0-5) HPF Ur Epithelial Cells (Negative) HPF Urine Crystals (Negative) HPF Urine Bacteria (Negative) HPF Urine Casts (Negative) LPF Urine Mucus (Negative) Urine Other (Negative) Ur Culture Indicated? Urine Glucose (Negative) mg/dL ECG Data Attestation: I personally reviewed and interpreted this ECG (s) as follows: Interpretation: EKG shows sinus rhythm at 82, normal axis, nonspecific ST changes, nonspecific ST changes, nondiagnostic EKG Repeat EKG shows sinus rhythm at 73, normal axis, nonspecific ST changes, no STEMI, nondiagnostic EKG HPI General Mode of arrival: EMS. Date/Time Provider Initiated Documentation: 11/30/20 10:40. Limitations to Documentation: physical limitation (severely hard of hearing). Information obtained by: patient, family, RN notes reviewed and old records reviewed. HPI Narrative: Kevin Whitmore is an 80-year-old man with history of hypertension, Parkinson's disease, chronic kidney disease, thrombocytopenia, status post abdominal aortic aneurysm repair presenting to the emergency department with seizure activity. Patient is accompanied by his son who also provides a history. Patient's son reports that patient was seated in his wheelchair when he developed shaking of upper and lower extremities. Patient son reports that patient had his eyes open and was not responding to him. Patient reports that he told his father, Dad, I'm going to call 911 if you don't answer, to which patient did not answer. Patient reports to me that he recalls having some difficulty speaking and spasming of his upper arms typical for him with his Parkinson's disease. He does not recall his son telling him that he was going to call 911. There was no incontinence. Patient son states that episode lasted approximately 2 minutes. Patient son reports that patient seemed out of it and confused after episode ended. Patient son reports that patient is now at baseline. Patient was initially complaining of nausea upon arrival to the emergency department, now stating that he feels well and at baseline. Patient and his son report that patient was previously in his usual state of health prior to episode, has not had any symptoms or illness recently. Denies fever, cough, shortness of breath, any pain, numbness, weakness, vomiting. Patient does report some chronic diarrhea that is unchanged. He also reports chronic unwanted movements of his upper extremities secondary to Parkinson's disease, patient states that these are at baseline. Related Data Home Medications Medication Instructions Recorded Confirmed aspirin 81 mg PO DAILY #90 tab 09/02/19 12/07/20 quetiapine 25 mg tablet 25 mg PO HS #90 tab 02/10/20 12/07/20 simvastatin 10 mg tablet 10 mg PO HS #90 tab-cap 04/13/20 12/07/20 docusate sodium 100 mg capsule 200 mg PO DAILY cap 07/06/20 12/07/20 ondansetron 4 mg disintegrating 4 mg PO Q8H PRN #14 tab 11/14/20 12/07/20 tablet carbidopa 25 mg-levodopa 100 mg 1 tab PO TID #270 tab 12/05/20 12/07/20 tablet carbidopa ER 25 mg-levodopa 100 mg 1 tab PO QHS #90 tab 12/08/20 tablet,extended release Previous Rx's Medication Instructions Recorded aspirin 81 mg PO DAILY #90 tab 09/02/19 quetiapine 25 mg tablet 25 mg PO HS #90 tab 02/10/20 simvastatin 10 mg tablet 10 mg PO HS #90 tab-cap 04/13/20 ondansetron 4 mg disintegrating 4 mg PO Q8H PRN #14 tab 11/14/20 tablet carbidopa 25 mg-levodopa 100 mg 1 tab PO TID #270 tab 12/05/20 tablet carbidopa ER 25 mg-levodopa 100 mg 1 tab PO QHS #90 tab 12/08/20 tablet,extended release Allergies Allergy/AdvReac Type Severity Reaction Status Date / Time Penicillins Allergy Intermediate HIVES Verified 12/07/20 10:13 General BOBBY: 3 Review of Systems Narrative: Constitutional: denies fevers Eyes: denies eye pain ENT: denies ear pain, dental pain, sore throat Cardiovascular: denies chest pain Respiratory: denies SOB, cough GI: denies abdominal pain, vomiting, reports nausea now resolved, chronic unchanged diarrhea : denies flank pain MSK: denies back pain, neck pain, arthralgias, myalgias Skin: denies rash Neuro: denies headaches, numbness, weakness PFSH Medical History Anemia Cataract s/p surgery 10/2002 and 12/2002 CKD (chronic kidney disease) Essential hypertension (09/25/13) Essential tremor Hyperlipidemia (06/20/03) Memory loss Vascular dementia MGUS (monoclonal gammopathy of unknown significance) [facility] [place] Vill[place]te Hemato-oncology: follow labs [id number]: do bone marrow biopsy if needed Monoclonal gammopathy present on serum protein electrophoresis [facility] [place] Dr. La Villafuerte:skeletal survey ordered/free light chains and quantitative Ig./ fup 3 months Orthostatic hypotension Parkinson disease REM sleep behavior disorder Smoker 50 year pack history Syncope Thrombocytopenia Surgical History Extraction of cataract 10/2002 Status post AAA (abdominal aortic aneurysm) repair Social History (Updated 12/05/20 @ 09:12 by Sveta Childers LPN) Smoking/Tobacco Use Status: Current every day Tobacco: How many years used: 60 Quit status: not considering quitting Second Hand Exposure: Yes Smoking risk assessment performed?: Yes Alcohol Intake: never Caregiver/Support person: Yes Household members: children and other Details: Son Housing: house Communication Needs: Hard of Hearing Do you need help understanding health information?: Rarely Pets and animals: No Sexually active: No Do you think of yourself as: straight/heterosexual Current gender identity: male What is your relationship status?: How often do you talk on the phone with friends or family?: decline to answer How often do you get together with friends or relatives?: decline to answer How often do you attend caodaism or confucianist services?: decline to answer Do you belong to any clubs or organized social groups?: decline to answer Panel score (0-1 are the most socially isolated patients): 0 What type of physical activity do you participate in: none Frequency: does not exercise Carmen/Voodoo: No preference Special carmen needs: No Seatbelt use: always Drive intox or ride w/intox hazmat cdl a driver: No Do you feel safe at home: Yes Do you feel safe in your relationship?: Yes Exam Narrative Exam Narrative: Constitutional: well and [id number], pleasant, conversing normally HENT: head atraumatic/normocephalic/normal inspection, mucous membranes moist Eyes: conjunctiva normal, sclera normal, pupils 3mm b/l ERRLA, EOMI Neck: no stridor, normal ROM, trachea midline Chest: normal inspection Resp: normal work of breathing, LCTAB Cardio: normal rate, normal rhythm, no murmur appreciated GI: abdomen soft, non-tender, non-distended Back: normal inspection, no rash Skin: warm, dry, normal color, no rash Neuro: alert, not altered, normal tone, reflow operator 2-12 intact, motor 5/5 throughout Ext: no edema Psych: normal mood, normal affect, normal behavior
--- NOTE | 2020-11-30 11:21 | NUR.NOTE ---
med list from Nursing Note:
[2020-11-30 12:28] LABS: Abs Immature Grans 0.05 10^3/uL (0.0-0.06); Absolute Basophil Count 0.02 10^3/uL (0.0-0.2); Absolute Eosinophil Count 0.03 10^3/uL (0.0-0.7); Absolute Lymphocyte Count 0.74 10^3/uL (1.2-3.4); Absolute Monocyte Count 0.57 10^3/uL (0.1-0.8); Absolute Neutrophil Count 9.07 10^3/uL (1.2-6.7); Basophils % 0.2; Eosinophils % 0.3; HCT 36.5 % (40.0-50.0); HGB 12.2 g/dL (13.5-17.5); Immature Grans % 0.5; Lymphocytes % 7.1; MCH 29.9 pg (27.0-33.0); MCHC 33.4 % (32.0-36.0); MCV 89.5 fL (80-95); MPV 9.4 fL (8.0-11.0); Monocytes % 5.4; Neutrophils % 86.5; Nucleated RBC 0 %; Platelet Count 142 10^3/uL (130-400); RBC 4.08 10^6/uL (4.36-5.78); RDW 13.4 % (11.8-14.1); RDW-SD 43.9 fL; WBC 10.48 10^3/uL (4.4-10.8)
[2020-11-30 12:29] LABS: Bilirubin Negative (Negative); Blood Small (Negative); Clarity Clear (Clear); Glucose Negative (Negative); Ketones Trace mg/dL (Negative); Leukocyte Esterase Negative (Negative); Nitrite Negative (Negative); Specific Gravity >= 1.030 (1.005-1.025); Urobilinogen 0.2 EU/dL (Up TO 0.2); pH 5.5 (5-8)
[2020-11-30 12:34] LABS: Epithelial Cells Few HPF (Negative); WBC 0-2 HPF (0-5)
[2020-11-30 12:35] LABS: Bacteria Rare HPF (Negative); C & S Indicated? No; Casts 0-2 Hyaline LPF (Negative); Crystals Negative HPF (Negative); Mucus Moderate (Negative)
[2020-11-30 12:59] LABS: ALT 8 U/L (16-63); AST 11 U/L (15-37); Albumin 3.6 g/dL (3.4-5.0); Alkaline Phosphatase 113 U/L (46-116); Anion Gap 10.9 mmol/L (3-11); BUN 20 mg/dL (7-18); Bilirubin, Total 0.6 mg/dL (0.2-1.0); CO2 27.1 mmol/L (21.0-32.0); CREATININE 1.9 mg/dL (0.70-1.30); Calcium 8.8 mg/dL (8.5-10.1); Chloride 101 mmol/L (98-107); Estimated GFR 34.19 (mL/min/1.73m2); Glucose 122 mg/dL (74-106); Lipase 92 U/L (73-393); Potassium 3.1 mmol/L (3.5-5.1); Sodium 139 mmol/L (136-145); TSH (W/Ref FT4) 1.62 uIU/mL (0.36-3.74); Total Protein 7.4 g/dL (6.4-8.2)
[2020-11-30 13:03] LABS: Troponin I < 0.05 ng/mL (<0.06)
--- NOTE | 2020-11-30 14:04 | NUR.NOTE ---
Nursing Note: [facility] [phone]
[2020-11-30] MEDS: Potassium Chloride 20 MEQ TABCR 40 MEQ PO (14:29)
[2020-11-30 15:38] LABS: Troponin I < 0.05 ng/mL (<0.06)
--- NOTE | 2020-11-30 15:58 | NUR.NOTE ---
Nursing Note: Referral faxed to [facility] Neurology for follow up of possible seizure in 1 to 2 weeks. Idalmis Garduno
--- NOTE | 2020-11-30 16:28 | NUR.NOTE ---
Nursing Note: Referral faxed to PCP for follow up in 1 to 2 weeks for hypertension. Idalmis Garduno
--- NOTE | 2020-11-30 16:30 | RT.EKG_ITS ---
APPROVED REPORT Exam: Resting ECG Reason for Exam: repeat Patient Location: E HR:73 bpm ECG Measurements Heart Rate 73 AXIS ID 201 P 62 QRSd 67 QRS 20 QT 423 T 3 QTc 466 Conclusion Sinus rhythm...normal P axis, V-rate 60- 99 sinus rhythm at 73, normal axis, nonspecific ST changes, no STEMI, nondiagnostic EKG
== END 2020-11-30 17:24 | disposition home or self-care (01) ==
PROVIDERS: Emergency Provider Student in an Organized Health Care Education/Training Program; PCP Family Medicine
DX: R41.82 Altered mental status, unspecified (principal); D64.9 Anemia, unspecified; E87.6 Hypokalemia; R31.9 Hematuria, unspecified
CPT/HCPCS: 36415; 80053; 83690; 93005; 96374; 99284; 70450; 81003; 81015; 84443; 84484; 85025; 93010; 93225; J2405

== ENCOUNTER 2020-11-30 16:48 | Outpatient (RCR) | payer MEDICARE, OTHER, SELFPAY ==
--- NOTE | 2020-11-30 16:45 | HOLTER_ITS ---
APPROVED REPORT Conclusion This is a 48-hour monitor ordered for indication of unresponsiveness. The patient was in normal sinus rhythm for the majority of the recording with an average heart rate o f 62 bpm. There were rare PACs and rare PVCs. There were no runs of VT or SVT. There is no evidence of atrial fibrillation, no pauses greater than 3 seconds and no evidence of high degree heart block. There were no patient triggered events.
== END 2020-12-19 23:59 | disposition home or self-care (01) ==
LOC: RT 16:48
PROVIDERS: PCP Family Medicine; Referring Provider Student in an Organized Health Care Education/Training Program; Visit Provider Student in an Organized Health Care Education/Training Program
DX: R41.89 Other symptoms and signs involving cognitive functions and awareness (principal)
CPT/HCPCS: 93227; 93225; 93226

== ENCOUNTER → 2020-12-05 08:58 | Outpatient (BNVA) | payer MEDICARE, OTHER, SELFPAY | PROVIDERS: PCP Family Medicine; Referring Provider Family Medicine; Visit Provider Psychiatry & Neurology Neurology | DX: G20 Parkinson's disease (principal); G25.0 Essential tremor; I95.1 Orthostatic hypotension; R41.3 Other amnesia; G47.52 REM sleep behavior disorder; R44.1 Visual hallucinations; R68.89 Other general symptoms and signs; I10 Essential (primary) hypertension; E78.5 Hyperlipidemia, unspecified | CPT/HCPCS: 93227; 99215; 93226 ==

== ENCOUNTER → 2021-01-18 11:19 | Outpatient (BNVA) | payer MEDICARE, OTHER, SELFPAY | PROVIDERS: PCP Family Medicine; Visit Provider Psychiatry & Neurology Neurology | DX: G20 Parkinson's disease (principal); G25.0 Essential tremor; I95.1 Orthostatic hypotension; R41.3 Other amnesia; G47.52 REM sleep behavior disorder; R44.1 Visual hallucinations; I10 Essential (primary) hypertension | CPT/HCPCS: 99215 ==

== ENCOUNTER → 2021-04-19 08:21 | Outpatient (BNVA) | payer MEDICARE, OTHER, SELFPAY | PROVIDERS: PCP Family Medicine; Referring Provider Family Medicine; Visit Provider Psychiatry & Neurology Neurology | DX: G20 Parkinson's disease (principal); G25.0 Essential tremor; I95.1 Orthostatic hypotension; R41.3 Other amnesia; G47.52 REM sleep behavior disorder; R44.1 Visual hallucinations | CPT/HCPCS: 99442 ==

== ENCOUNTER 2021-05-23 02:19 | Outpatient (CLI) | payer MEDICARE, OTHER, SELFPAY ==
[2021-05-23 11:47] LABS: Abs Immature Grans 0.02 10^3/uL (0.0-0.06); Absolute Basophil Count 0.02 10^3/uL (0.0-0.2); Absolute Eosinophil Count 0.19 10^3/uL (0.0-0.7); Absolute Lymphocyte Count 1.34 10^3/uL (1.2-3.4); Absolute Monocyte Count 0.65 10^3/uL (0.1-0.8); Absolute Neutrophil Count 4.97 10^3/uL (1.2-6.7); Basophils % 0.3; Eosinophils % 2.6; HCT 37.6 % (40.0-50.0); HGB 12.2 g/dL (13.5-17.5); Immature Grans % 0.3; Lymphocytes % 18.6; MCH 30.3 pg (27.0-33.0); MCHC 32.4 % (32.0-36.0); MCV 93.3 fL (80-95); Neutrophils % 69.2; Nucleated RBC 0 %; Platelet Count 135 10^3/uL (130-400); RBC 4.03 10^6/uL (4.36-5.78); RDW 14.5 % (11.8-14.1); RDW-SD 49.3 fL; WBC 7.19 10^3/uL (4.4-10.8)
[2021-05-23 13:01] LABS: ALT 10 U/L (16-63); AST 12 U/L (15-37); Albumin 3.7 g/dL (3.4-5.0); Alkaline Phosphatase 102 U/L (46-116); Anion Gap 8.9 mmol/L (3-11); BUN 33 mg/dL (7-18); Bilirubin, Total 0.6 mg/dL (0.2-1.0); CO2 28.1 mmol/L (21.0-32.0); CREATININE 2.1 mg/dL (0.70-1.30); Chloride 104 mmol/L (98-107); Estimated GFR 30.39 (mL/min/1.73m2); Glucose 93 mg/dL (74-106); Potassium 3.9 mmol/L (3.5-5.1); Sodium 141 mmol/L (136-145); Total Protein 7.3 g/dL (6.4-8.2)
[2021-05-24 11:21] LABS: IgA 141 mg/dL (85-499); IgG 1309 mg/dL (610-1,616); IgM 229 mg/dL (35-242); Kappa Free Light Chain 20.19 mg/dL (0.33-1.94); Lambda Free Light Chain 2.53 mg/dL (0.57-2.63)
[2021-05-24 13:12] LABS: Albumin 57.2 % (55.8-66.1); Comment (See Note); Monoclonal Spike 7.8 % (None Seen); Total Protein 7.3 g/dL (6.3-8.2)
== END 2021-05-23 02:20 | disposition home or self-care (01) ==
LOC: LBO 02:19
PROVIDERS: Internal Medicine; PCP Family Medicine; Visit Provider Family Medicine
DX: E87.6 Hypokalemia (principal)
CPT/HCPCS: 36415; 80053; 82784; 83883; 84165; 85025

== ENCOUNTER 2021-07-27 14:01 | Outpatient (REF) | payer MEDICARE, OTHER, SELFPAY ==
[2021-07-28 12:30] LABS: COVID-19 RT-PCR UVMMC Result Negative (Negative)
== END 2021-07-27 14:02 | disposition home or self-care (01) ==
LOC: LBN 14:01
PROVIDERS: PCP Family Medicine; Visit Provider Family Medicine
DX: R50.9 Fever, unspecified (principal); Z20.822 Contact with and (suspected) exposure to COVID-19; N39.0 Urinary tract infection, site not specified
CPT/HCPCS: U0003; U0005; 87086

== ENCOUNTER 2021-08-26 12:48 | Outpatient (REF) | payer MEDICARE, OTHER, SELFPAY ==
[2021-08-27 12:25] LABS: COVID-19 RT-PCR UVMMC Result Negative (Negative)
== END 2021-08-26 12:49 | disposition home or self-care (01) ==
LOC: LBN 12:48
PROVIDERS: PCP Family Medicine; Visit Provider Family Medicine
DX: Z20.822 Contact with and (suspected) exposure to COVID-19 (principal)
CPT/HCPCS: U0003; U0005

== ENCOUNTER 2021-09-02 12:21 | Emergency (ER) | payer MEDICARE, OTHER, SELFPAY ==
[2021-09-02] VITALS (51 sets, daily range): BP systolic 111–140; BP diastolic 51–86; PULSE 81–89; RESP 18–35; TEMP 36.3; O2SAT 92–99
--- NOTE | 2021-09-02 12:15 | RT.EKG_ITS ---
APPROVED REPORT Exam: Resting ECG Reason for Exam: SOB Patient Location: E HR:85 bpm ECG Measurements Heart Rate 85 AXIS AZ 160 P 53 QRSd 66 QRS 8 QT 379 T 59 QTc 450 Conclusion Sinus rhythm...normal P axis, V-rate 60- 99 Probable left atrial enlargement...P >50mS, <-0.10mV V1 Nonspecific repolarization abnormalities...ST dep, T neg, 2-3 leads normal sinus rhythm, normal axis, normal intervals, no ischemic changes
--- NOTE | 2021-09-02 12:30 | DI.RAD_ITS ---
Exam(s) XR PORTABLE CHEST AP EXAM: XR PORTABLE CHEST AP CLINICAL HISTORY: cough, fever TECHNIQUE: 2D digital imaging was performed of the chest. One image was obtained. An AP view was ob tained. COMPARISON: CR CHEST 2 VIEWS PA,LAT from 06/01/[address] CHEST/ABD/PEL WO from 08/29/2019 FINDINGS: MEDIASTINUM: Normal. HEART: Normal. PULMONARY VASCULATURE: Normal. LUNGS: Increased interstitial markings are seen in the right lung. The left lung appears clear. PLEURAL SPACE: There is a large right pleural effusion. No left pleural effusion is seen. No pneumo thorax is present. BONE:Within normal limits for the patient's age. Degenerative changes are seen in the right shoulder. The humeral head appears superiorly located which can be seen with chronic rotator cuff tear. OTHER FINDINGS:Normal. IMPRESSION: Significant change in the findings in the right hemithorax. There are findings consistent with a lar ge right pleural effusion. Right atelectasis or pneumonia cannot be excluded. DATA REPOSITORY: RADIATION DOSE DELIVERED:
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
[2021-09-02 12:55] LABS: Abs Immature Grans 0.07 10^3/uL (0.0-0.06); Absolute Basophil Count 0.01 10^3/uL (0.0-0.2); Absolute Eosinophil Count 0.02 10^3/uL (0.0-0.7); Absolute Lymphocyte Count 0.77 10^3/uL (1.2-3.4); Absolute Monocyte Count 0.74 10^3/uL (0.1-0.8); Absolute Neutrophil Count 9.12 10^3/uL (1.2-6.7); Basophils % 0.1; Eosinophils % 0.2; HCT 41.9 % (40.0-50.0); HGB 13.3 g/dL (13.5-17.5); Immature Grans % 0.7; Lymphocytes % 7.2; MCHC 31.7 % (32.0-36.0); MCV 91.3 fL (80-95); MPV 8.9 fL (8.0-11.0); Monocytes % 6.9; Neutrophils % 84.9; Nucleated RBC 0 %; Platelet Count 146 10^3/uL (130-400); RBC 4.59 10^6/uL (4.36-5.78); RDW 15.2 % (11.8-14.1); RDW-SD 51.2 fL; WBC 10.73 10^3/uL (4.4-10.8)
[2021-09-02 13:07] LABS: AST 19 U/L (15-37); Albumin 2.9 g/dL (3.4-5.0); Alkaline Phosphatase 92 U/L (46-116); Anion Gap 6.8 mmol/L (3-11); BUN 49 mg/dL (7-18); Bilirubin, Total 0.7 mg/dL (0.2-1.0); CO2 30.2 mmol/L (21.0-32.0); CREATININE 1.7 mg/dL (0.70-1.30); Calcium 8.8 mg/dL (8.5-10.1); Chloride 104 mmol/L (98-107); Estimated GFR 38.78 (mL/min/1.73m2); Glucose 119 mg/dL (74-106); Sodium 141 mmol/L (136-145); Total Protein 6.9 g/dL (6.4-8.2)
[2021-09-02 13:09] LABS: ALT < 6 U/L (16-63)
[2021-09-02] MEDS: Dexamethasone 10 MG/ML VIAL IVP (13:14)
[2021-09-02] MEDS: Albuterol 2.5 MG/3 ML INH SOLN VIAL UPD (14:03)
--- NOTE | 2021-09-02 14:31 | DI.VRAD_ITS ---
PROCEDURE INFORMATION: Exam: XR Chest Exam date and time: 09/02/2021 12:48 PM Age: 81 years old Clinical indication: Other: SOB, cough TECHNIQUE: Imaging protocol: XR of the chest. Views: 1 view. Other technique: Portable exam. COMPARISON: CT CHEST/ABD/PEL WO 08/29/2019 1:53 PM FINDINGS: Lungs: Suspect right atelectasis associated with effusion. Pleural spaces: There is a moderate to large sized right pleural effusion. Heart/Mediastinum: The heart size is not well characterized but probably slightly enlarged. Vasculature: Moderate atherosclerotic change seen in the aorta. Bones/joints: The right humeral head is high-riding, possible rotator cuff arthropathy. IMPRESSION: Moderate to large right pleural effusion with probable atelectasis. Dictated and Authenticated by: Anya Miles MD. Ordering:ELIAS Kebede MD
--- NOTE | 2021-09-02 16:56 | NUR.NOTE ---
consult request faxed to [facility] Pulmonology -p/Dr. Laurent for Monday 09/04, placed in care management box
[2021-09-03 11:25] LABS: COVID-19 RT-PCR UVMMC Result Negative (Negative)
== END 2021-09-02 18:16 | disposition home or self-care (01) ==
PROVIDERS: Emergency Provider Emergency Medicine; PCP Family Medicine
DX: J90 Pleural effusion, not elsewhere classified (principal); R06.02 Shortness of breath; Z20.822 Contact with and (suspected) exposure to COVID-19; R05.1 Acute cough; R50.9 Fever, unspecified
CPT/HCPCS: 36415; 80053; 93005; 96374; 99284; U0003; U0005; 71045; 85025; 93010; J1100; J7613

== ENCOUNTER 2021-09-06 09:47 | Inpatient (IN) | payer MEDICARE, SELFPAY ==
[2021-09-06] VITALS (55 sets, daily range): BP systolic 94–154; BP diastolic 62–86; PULSE 76–119; RESP 12–29; TEMP 36.2–37.1; O2SAT 92–100
--- NOTE | 2021-09-06 09:45 | RT.EKG_ITS ---
APPROVED REPORT Exam: Resting ECG Reason for Exam: SOB Patient Location: E HR:79 bpm ECG Measurements Heart Rate 79 AXIS MT 169 P 75 QRSd 68 QRS 17 QT 349 T 262 QTc 401 Conclusion Sinus rhythm...normal P axis, V-rate 60- 99 Probable LVH with secondary repol abnrm...multiple LVH criteria
--- NOTE | 2021-09-06 10:00 | DI.CT_ITS ---
Exam(s) CT CHEST WO EXAM: CT CHEST WO CLINICAL HISTORY: SOB, large pleural effusion, possible loculations,. TECHNIQUE: Imaging protocol: Axial computed tomography images were obtained and coronal and sagittal reformatted images were created and reviewed. COMPARISON: CR,XR XR PORTABLE CHEST AP from 09/02/2021 FINDINGS: The examination is limited due to patient motion artifact. Tracheobronchial tree: Patent where visualized. Pulmonary parenchyma: No consolidation or dominant measurable mass. No architectural distortion. Mediastinum and Lennie: Subcarinal adenopathy measuring 3.3 x 3.5 cm. The esophagus is unremarkable. Thyroid gland: Unremarkable. Pleura: There is a large right pleural effusion causing compressive atelectasis of the right, middle and lower lobes. No obvious loculations are seen. There is some aeration seen in the right upper an d middle lobes. Emphysematous changes are present throughout the lungs. There is some leftward shif t of the midline structures. There also appears to be mild soft tissue nodularity along the peripher y of the right hemithorax. No pulmonary nodules or infiltrates are seen in the left lung. Heart: The heart is not dilated. Coronary artery calcifications are present. No pericardial effusion . Aorta: Thoracic aorta non-dilated. Atherosclerosis. Upper abdomen: There is a nonobstructing stone in the superior pole of the left kidney. The upper a spect of an aortic stent is visualized. Lymph nodes: No axillary adenopathy. Soft tissues: Unremarkable. Bones:Within normal limits for the patient's age. No definite lytic or sclerotic lesions are identif ied. IMPRESSION: 1. Examination limited by patient motion artifact. 2. Large right pleural effusion causing atelectasis of the right lung with leftward shift of the midl ine. 3. Soft tissue nodularity is seen along the periphery of the right hemithorax. Noncalcified pleural plaques or metastatic disease cannot be excluded. 4. Pulmonary emphysematous changes in the lungs. 5. Subcarinal adenopathy. 6. Results of this exam have been verbally communicated with provider. RADIATION DOSE DELIVERED: 621.02mGy.cm Total DLP 621.02mGy.cm Total DLP DATA REPOSITORY: All CT scans at this facility are submitted to the National Radiology Data Registry (NRDR) Dose Index Registry (DIR) with the [employer] [place] [employer] (ACR). RADIATION OPTIMIZATION: All CT scans at this facility use at least one of these dose optimization te chniques: automated exposure control; mA and/or kV adjustment per patient size (includes targeted exa ms where dose is matched to clinical indication); or iterative reconstruction.
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
[2021-09-06 10:39] LABS: Abs Immature Grans 0.08 10^3/uL (0.0-0.06); Absolute Basophil Count 0.01 10^3/uL (0.0-0.2); Absolute Lymphocyte Count 0.66 10^3/uL (1.2-3.4); Absolute Monocyte Count 0.68 10^3/uL (0.1-0.8); Absolute Neutrophil Count 9.71 10^3/uL (1.2-6.7); Basophils % 0.1; HCT 41.6 % (40.0-50.0); HGB 13.2 g/dL (13.5-17.5); Immature Grans % 0.7; Lymphocytes % 5.9; MCH 29.4 pg (27.0-33.0); MCHC 31.7 % (32.0-36.0); MCV 92.7 fL (80-95); MPV 9.8 fL (8.0-11.0); Monocytes % 6.1; Neutrophils % 87.2; Nucleated RBC 0 %; Platelet Count 156 10^3/uL (130-400); RBC 4.49 10^6/uL (4.36-5.78); RDW 15.4 % (11.8-14.1); RDW-SD 52.7 fL; WBC 11.14 10^3/uL (4.4-10.8)
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
--- NOTE | 2021-09-06 11:40 | PAPNONF_PTH ---
PATIENT: Kevin Whitmore LOC: [id number] AGE/SX: 81/M ROOM: [id number] RE09/07/[address]: Ana Martin : 1940 BED: A DIS: 09/08/2021 SPEC #: [id number] RECD: 09/06/21 13:15 STATUS: SHAY REQ #: [id number] PALAK: 09/06/21 11:[address]: Laura Brewster DEPT: [facility] Cytology RECD BY: Laura Rey ENTERED: 09/06/21 13:15 SP TYPE: ANTWON LERMA DR: Yanique Benavidez Tissues: 1 - BODY FLUID CYTO(NOT S/U/N/EM)[facility] Procedures: BODY FLUID CYTO(NOT SPU/UR/NIP/ENDOM)[facility] FLOW CYTOMETRY LEUKOCYTE PNL Comments: [id number] (TOTAL NWHCFW=804 ml) (FLOW [id number]) (SENT FRESH)
[2021-09-06] MEDS: CEFEPIME 2 GM in Normal Saline 100 ML IVPB (11:46)
--- NOTE | 2021-09-06 11:59 | DI.RAD_ITS ---
Exam(s) XR PORTABLE CHEST AP EXAM: XR PORTABLE CHEST AP CLINICAL HISTORY: s/p thoracotomy tube TECHNIQUE: 2D digital imaging was performed of the chest. One image was obtained. An AP view was ob tained. COMPARISON: CR,XR XR PORTABLE CHEST AP from 09/02/[address] CHEST WO from 09/06/2021 FINDINGS: MEDIASTINUM: Normal. HEART: Normal. PULMONARY VASCULATURE: Normal. LUNGS: There are opacities seen in the right mid lung. Diffuse interstitial disease and COPD is pres ent. PLEURAL SPACE: There is a right chest tube along the right lateral chest wall. There is a tiny right apical pneumothorax. There may be a tiny residual right pleural effusion present. BONE:Within normal limits for the patient's age. OTHER FINDINGS:Normal. IMPRESSION: 1. Near complete resolution of the right pleural effusion. There may be a tiny right pleural effusio n present. 2. Right chest tube along the right lateral chest wall. There is a tiny apical pneumothorax. 3. Opacity seen in the right mid lung. Atelectasis, infiltrate or pulmonary mass. 4. Chronic interstitial disease and COPD. DATA REPOSITORY: RADIATION DOSE DELIVERED:
[2021-09-06 12:14] LABS: ALT 7 U/L (16-63); AST 19 U/L (15-37); Albumin 2.8 g/dL (3.4-5.0); Alkaline Phosphatase 91 U/L (46-116); BUN 50 mg/dL (7-18); Bilirubin, Total 0.5 mg/dL (0.2-1.0); CREATININE 1.7 mg/dL (0.70-1.30); Calcium 8.8 mg/dL (8.5-10.1); Chloride 103 mmol/L (98-107); Estimated GFR 38.78 (mL/min/1.73m2); Glucose 135 mg/dL (74-106); NT-proBNP 1450 pg/mL (<300); Potassium 3.4 mmol/L (3.5-5.1); Sodium 142 mmol/L (136-145); Total Protein 6.9 g/dL (6.4-8.2); Troponin I < 50 ng/L (<or=60)
[2021-09-06 12:23] LABS: Source: Pleural
[2021-09-06 12:29] LABS: Clarity Cloudy; Nucleated Cells 798 uL (0); Source Pleural
[2021-09-06 12:33] LABS: Lab Add On Test DONE
[2021-09-06 12:37] LABS: Mononuclear Cells 75 %; Polynuclear Cells 25 %
[2021-09-06 12:40] LABS: Lab Add On Test DONE
[2021-09-06 12:57] LABS: LDH 381 U/L (85-227)
[2021-09-06 13:37] LABS: Procalcitonin 0.2 ng/mL
[2021-09-06 13:38] LABS: COVID-19 PCR Negative (Negative)
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
[2021-09-06 13:44] LABS: Source Nasal/Nares
[2021-09-06] MEDS: Potassium Chloride 20 MEQ TABCR 40 MEQ PO (16:20)
[2021-09-06] MEDS: predniSONE 20 MG TAB 40 MG PO (16:20)
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
[2021-09-06] MEDS: Acetaminophen 325 MG TAB PO (18:08)
[2021-09-06] MEDS: Normal Saline Flush 10 ML SYR IVP (20:00)
[2021-09-06] MEDS: CEFEPIME 1 GM in Normal Saline 50 ML IVPB (20:00)
[2021-09-06] MEDS: Normal Saline 500 ML 30 ML IV (20:00)
[2021-09-06] MEDS: Lachydrin 12% LOTION 225 GM BTL TP (21:30)
[2021-09-06] MEDS: QUEtiapine 25 MG TAB PO (21:31)
[2021-09-06] MEDS: Simvastatin 10 MG TAB PO (21:31)
[2021-09-06 21:33] LABS: Glucose, Fluid 123 mg/dL (See Note)
[2021-09-07] VITALS (11 sets, daily range): BP systolic 133–163; BP diastolic 84–96; PULSE 74–88; RESP 13–36; TEMP 35.6–36.8; O2SAT 91–98; BMI 24.0
[2021-09-07] MEDS: HYDROmorphone 2 MG/ML VIAL 0.5 MG IVP ×2 (03:40→18:33)
[2021-09-07] MEDS: Normal Saline Flush 10 ML SYR IVP ×2 (03:41→23:43)
[2021-09-07] MEDS: CEFEPIME 1 GM in Normal Saline 50 ML IVPB ×2 (03:41→17:03)
[2021-09-07] MEDS: Heparin 5,000 UNITS/ML VIAL 5000 UNITS SC (05:21)
[2021-09-07 07:03] LABS: Abs Immature Grans 0.04 10^3/uL (0.0-0.06); Absolute Basophil Count 0.01 10^3/uL (0.0-0.2); Absolute Lymphocyte Count 0.48 10^3/uL (1.2-3.4); Absolute Monocyte Count 0.36 10^3/uL (0.1-0.8); Absolute Neutrophil Count 8.61 10^3/uL (1.2-6.7); Basophils % 0.1; HCT 41.4 % (40.0-50.0); HGB 13.1 g/dL (13.5-17.5); Immature Grans % 0.4; Lymphocytes % 5.1; MCH 28.9 pg (27.0-33.0); MCHC 31.6 % (32.0-36.0); MCV 91.2 fL (80-95); MPV 9.8 fL (8.0-11.0); Monocytes % 3.8; Neutrophils % 90.6; Nucleated RBC 0 %; Platelet Count 125 10^3/uL (130-400); RBC 4.54 10^6/uL (4.36-5.78); RDW 15.8 % (11.8-14.1); RDW-SD 51.7 fL
[2021-09-07] MEDS: Tiotropium Bromide-Respimat 10 PUFF INH 2 PUFF IH (07:16)
[2021-09-07 07:31] LABS: Anion Gap 7.7 mmol/L (3-11); BUN 61 mg/dL (7-18); CO2 27.3 mmol/L (21.0-32.0); CREATININE 1.9 mg/dL (0.70-1.30); Calcium 8.3 mg/dL (8.5-10.1); Chloride 105 mmol/L (98-107); Estimated GFR 34.11 (mL/min/1.73m2); Glucose 136 mg/dL (74-106); Magnesium 2.8 mg/dL (1.8-2.4); Potassium 4.1 mmol/L (3.5-5.1); Sodium 140 mmol/L (136-145)
[2021-09-07] MEDS: Omeprazole 20 MG CAPCR PO (08:26)
[2021-09-07] MEDS: predniSONE 20 MG TAB 40 MG PO (08:26)
[2021-09-07] MEDS: Carbidopa 25/Levodopa 100 TAB PO ×2 (08:29→17:03)
--- NOTE | 2021-09-07 08:58 | PDOC.CMIN ---
- If Service Date Differs Date of service: 09/07/21 Time of Service: 09:00 Care Management Initial Assess REASON FOR HOSPITALIZATION:: Pleural Effusion PAST MEDICAL HISTORY/PAST SURGICAL HISTORY:: All Active Problems (Updated 09/06/21 @ 16:32 by Ana Martin MD). Discharge planning issues (Acute). DVT prophylaxis (Acute). Pleural effusion (Acute). Shortness of breath (Acute). Caregiver stress (Chronic). son Golden extremely anxious. Fecal incontinence (Acute). Hemiparesis of right dominant side (Chronic). partial hemiparesis. needs help with ADLs, eating, dressing, bathing. Goals of care, counseling/discussion (Acute). Family dysfunction (Chronic). Kevin and his youngest son Golden do not get along, despite living together. Chronic kidney disease (Chronic). Hyperlipidemia (Acute). Impairment of speech discrimination (Acute). Sensorineural hearing loss, bilateral (Acute). Impaired mobility and ADLs (Acute). Profound hearing loss (Acute). Labile blood pressure (Chronic). 17/18 readings high per BP monitor. 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 Health care proxy on file (Acute). son Golden. jose miguel Jean-Baptiste is secondary. DNI (do not intubate) (Acute). DNR (do not resuscitate) (Acute). POLST (Physician Orders for Life-Sustaining Treatment) (Acute). signed 12/15/20. Palliative care patient (Acute). Frequent falls (Acute). Episode of unresponsiveness (Acute). Anemia (Chronic). Hypokalemia (Acute). Hematuria (Acute). Spells of decreased attentiveness (Acute). MGUS (monoclonal gammopathy of unknown significance) (Chronic). [facility] [place] Villafuerte Hemato-oncology: follow labs [id number]: do bone marrow biopsy if needed. Essential hypertension (Chronic). Parkinson disease (Chronic). Essential tremor (Acute). Orthostatic hypotension (Acute). Memory loss (Chronic). mild, likely d/t Vascular dementia. REM sleep behavior disorder (Acute). Thrombocytopenia (Chronic). Constipation (Acute). Anemia (Chronic). Visual hallucinations (Acute). CKD (chronic kidney disease) (Chronic). Vertigo (Acute). Generalized weakness (Acute). Nausea (Acute). Status post AAA (abdominal aortic aneurysm) repair (Acute). Syncope (Chronic). Hearing loss (Chronic). severe hearing loss, does not have aids. Bundle branch block (Acute). Actinic keratosis (Acute). Medical History. Cataract. s/p surgery 10/2002 and 12/2002. Essential hypertension (09/25/13). Hyperlipidemia (06/20/03). Monoclonal gammopathy present on serum protein electrophoresis. [facility] [place] Dr. La Villafuerte:skeletal survey ordered/free light chains and quantitative Ig./ fup 3 months. Smoker. 50 year pack history. Surgical History . Extraction of cataract. 10/2002. 12/2002. History of tonsillectomy and adenoidectomy PREVIOUS FUNCTIONAL STATUS/SOCIAL/FAMILY SUPPORTS:: Kevin lives in [facility] with his son Golden. He is dependent on others for care. CURRENT FUNCTIONAL STATUS:: Kevin was lying in bed with the HOB elevated when CM met with him. He shared with that he is very thirsty and looking forward to going home. He is currently NPO since he is having a pleurc catheter placed today. After the procedure he is planning on discharging home. He will be admitted to hospice tomorrow. ADVANCE DIRECTIVES:: [facility] is [facility] Has patient been provided with info about the portal/API?: Yes Did the patient sign up for the portal?: No CODE STATUS:: DNR/DNI INSURANCE COVERAGE / FINANCIAL ISSUES:: CMR. [employer]. [employer]. Medicare CURRENT HOME/COMMUNITY SERVICES/EQUIPMENT:: Wheel Chair at home PRIMARY CARE PHYSICIAN:: Yanique Benavidez POTENTIAL DISCHARGE NEEDS:: Hospital bed and home O2, Hospice setting up. PATIENT/FAMILY EDUCATION NEEDS:: Review discharge instructions, limitations and plan to follow up with community providers. ask me three. TRANSPORTATION:: Via private vehicle with son. PLAN:: Anticipate Kevin will be discharged home via private vehicle with son when medically ready. He will be admitted to Hospice services tomorrow. Hospice is having a hospital bed and oxygen delivered to his home. Kevin will follow up with community providers and discharge plan of care as prescribed.
--- NOTE | 2021-09-07 09:33 | W.PALPGNOTE ---
Date of service: 09/07/21 Time of Service: 09:00 Assessment and Plan Assessment and plan (1) Encounter for hospice care discussion: Status: Acute (2) Pleural effusion: Status: Acute (3) Shortness of breath: Status: Acute (4) Respiratory distress: Status: Acute (5) Fecal incontinence: Status: Acute (6) Hemiparesis of right dominant side: Status: Chronic (7) Goals of care, counseling/discussion: Status: Acute (8) Chronic kidney disease: Status: Chronic (9) Frequent falls: Status: Acute (10) DNR (do not resuscitate): Status: Acute (11) DNI (do not intubate): Status: Acute (12) MGUS (monoclonal gammopathy of unknown significance): Status: Chronic (13) Parkinson disease: Status: Chronic (14) Memory loss: Status: Chronic (15) Generalized weakness: Status: Acute (16) Palliative care patient: Status: Acute Assessment and plan: Kevin was seen for follow up palliative care visit. He has a chest tube in place. The plan is for him to have a pleurx catheter placed today and be discharged home after. He will be admitted to hospice services tomorrow. I have asked hospice to have a hospital bed and oxygen delivered to his home. Kevin is looking forward to going home, he does not like being in the hospital. He is a DNR/DNI. Follow up with home hospice. Subjective Subjective Interval history since last seen: Kevin was seen in his room at the hospital. The plan is for him to go home today after he has a pleurx placed by general surgery. He will be admitted to hospice tomorrow. He is interested in having a hospital bed at home. His breathing remains labored. He feels that his breathing is better than when he presented to the ED. He has a chest tube in place. He is incontinent. He is dependent on others for care. He is eating small amounts. He has lost weight, approximately 12 pounds over the last year. He is weak and deconditioned. He is looking forward to going home. He does not like being in the hospital. Exam Narrative Exam Narrative: General: thin, chronically ill appearing, elderly man. He is laying in bed with his HOB elevated. He is [employer] [place], he answers questions appropriately. HEENT: normocephalic, atraumatic, EOMI, mucous membranes moist. Neck: supple. Cardiovascular: heart sounds regular, nontachycardic. Respiratory: appears to have increased work of breathing, rhonchi throughout lungs. Chest tube in place draining bloody fluid. GI: +BS, soft, nondistended, nontender on palpation. Extremities: no edema. Objective Last Vital Signs Temp 36.8 C 09/07/21 07:27 Pulse 81 09/07/21 07:27 Resp 16 09/07/21 07:27 BP 157/94 H 09/07/21 07:27 Pulse Ox 95 09/07/21 07:27 Laboratory Results - last 24 hr 09/06/21 09/06/21 09/06/21 10:00 10:00 10:00 WBC 11.14 H RBC 4.49 Hgb 13.2 L Hct 41.6 MCV 92.7 MCH 29.4 MCHC 31.7 L RDW 15.4 H Plt Count 156 MPV 9.8 Immature Gran % 0.7 Neutrophils % 87.2 Lymphocytes % 5.9 Monocytes % 6.1 Eosinophils % 0.0 Basophils % 0.1 Nucleated RBC % 0 Absolute Neutrophils 9.71 H Absolute Lymphocytes 0.66 L Absolute Monocytes 0.68 Absolute Eosinophils 0.00 Absolute Basophils 0.01 Sodium 142 Potassium 3.4 L Chloride 103 Carbon Dioxide 31.0 Anion Gap 8.0 BUN 50 H Creatinine 1.7 H Estimated GFR/1.73 m2 38.78 Glucose 135 H Calcium 8.8 Magnesium Total Bilirubin 0.5 AST 19 ALT 7 L Alkaline Phosphatase 91 Lactate Dehydrogenase Troponin I < 50 NT-Pro-B Natriuret Pep 1450 H Total Protein 6.9 Albumin 2.8 L Procalcitonin Fluid Source Fluid Color Fluid Clarity Fluid pH Fluid WBC Fld Polynuclear WBCs % Fluid Mononuclear Cell COVID-19 Source SARS-CoV-2 (PCR) Add-On Test Request DONE 09/06/21 09/06/21 09/06/21 10:00 10:00 10:00 WBC RBC Hgb Hct MCV MCH MCHC RDW Plt Count MPV Immature Gran % Neutrophils % Lymphocytes % Monocytes % Eosinophils % Basophils % Nucleated RBC % Absolute Neutrophils Absolute Lymphocytes Absolute Monocytes Absolute Eosinophils Absolute Basophils Sodium Potassium Chloride Carbon Dioxide Anion Gap BUN Creatinine Estimated GFR/1.73 m2 Glucose Calcium Magnesium Total Bilirubin AST ALT Alkaline Phosphatase Lactate Dehydrogenase 381 H Troponin I NT-Pro-B Natriuret Pep Total Protein Albumin Procalcitonin 0.2 Fluid Source Fluid Color Fluid Clarity Fluid pH Fluid WBC Fld Polynuclear WBCs % Fluid Mononuclear Cell COVID-19 Source SARS-CoV-2 (PCR) Add-On Test Request DONE 09/06/21 09/06/21 09/06/21 11:40 11:40 12:15 WBC RBC Hgb Hct MCV MCH MCHC RDW Plt Count MPV Immature Gran % Neutrophils % Lymphocytes % Monocytes % Eosinophils % Basophils % Nucleated RBC % Absolute Neutrophils Absolute Lymphocytes Absolute Monocytes Absolute Eosinophils Absolute Basophils Sodium Potassium Chloride Carbon Dioxide Anion Gap BUN Creatinine Estimated GFR/1.73 m2 Glucose Calcium Magnesium Total Bilirubin AST ALT Alkaline Phosphatase Lactate Dehydrogenase Troponin I NT-Pro-B Natriuret Pep Total Protein Albumin Procalcitonin Fluid Source Pleural Pleural Fluid Color Red Fluid Clarity Cloudy Fluid pH 8.0 Fluid WBC 798 Fld Polynuclear WBCs % 25 Fluid Mononuclear Cell 75 COVID-19 Source Nasal/Nares SARS-CoV-2 (PCR) Negative Add-On Test Request 09/07/21 09/07/21 06:30 06:30 WBC 9.50 RBC 4.54 Hgb 13.1 L Hct 41.4 MCV 91.2 MCH 28.9 MCHC 31.6 L RDW 15.8 H Plt Count 125 L MPV 9.8 Immature Gran % 0.4 Neutrophils % 90.6 Lymphocytes % 5.1 Monocytes % 3.8 Eosinophils % 0.0 Basophils % 0.1 Nucleated RBC % 0 Absolute Neutrophils 8.61 H Absolute Lymphocytes 0.48 L Absolute Monocytes 0.36 Absolute Eosinophils 0.00 Absolute Basophils 0.01 Sodium 140 Potassium 4.1 D Chloride 105 Carbon Dioxide 27.3 Anion Gap 7.7 BUN 61 H D Creatinine 1.9 H Estimated GFR/1.73 m2 34.11 Glucose 136 H Calcium 8.3 L Magnesium 2.8 H Total Bilirubin AST ALT Alkaline Phosphatase Lactate Dehydrogenase Troponin I NT-Pro-B Natriuret Pep Total Protein Albumin Procalcitonin Fluid Source Fluid Color Fluid Clarity Fluid pH Fluid WBC Fld Polynuclear WBCs % Fluid Mononuclear Cell COVID-19 Source SARS-CoV-2 (PCR) Add-On Test Request
[2021-09-07 10:58] LABS: Fluid Type PLEURAL; Lactate Dehydrogenase (LD), BF 302 U/L
--- NOTE | 2021-09-07 12:10 | W.ANESPRE ---
General Info Date of Service Date Performed: 09/07/21 Height: 5 ft 6 in Weight: 67.7 kg Body Mass Index (BMI): 24.0 Surgical Procedure: Operation Date: 09/07/21 13:10 Proposed Procedure Side Surgeon carisa Pluerx Cath Placement Sangita Wynne, DO Meds Allergies and Home Medications Allergies Allergy/AdvReac Type Severity Reaction Status Date / Time Penicillins Allergy Intermediate HIVES Verified 09/06/21 10:01 Home Medication Medication Instructions Recorded aspirin 81 mg tablet,delayed 81 mg PO DAILY #90 tab 09/02/19 release docusate sodium 100 mg capsule 200 mg PO DAILY cap 07/06/20 (Colace) ondansetron 4 mg disintegrating 4 mg PO Q8H PRN #14 tab 11/14/20 tablet carbidopa 25 mg-levodopa 100 mg 1 tab PO TID #270 tab 12/05/20 tablet carbidopa ER 25 mg-levodopa 100 mg 1 tab PO QHS #90 tab 12/08/20 tablet,extended release quetiapine 25 mg tablet 25 mg PO HS #90 tab 01/18/21 blood sugar diagnostic (Blood #25 ea 01/24/21 Glucose Test) blood-glucose meter #1 ea 01/24/21 lancets #25 ea 01/24/21 simvastatin 10 mg tablet 10 mg PO HS #90 tab-cap 05/30/21 amlodipine 10 mg tablet 10 mg PO DAILY #90 tab 07/19/21 Current Visit Medications: Current Medications Generic Name Dose Route Start Last Admin Trade Name Freq PRN Reason Stop Dose Admin Acetaminophen 0 mg 09/06/21 13:26 09/06/21 18:08 Acetaminophen 325 Mg Tab PO 650 mg Q4H PRN PRN Administration Al Hydrox/Mg Hydrox/Simethicone 30 ml 09/06/21 13:26 Mylanta Suspension 30 Ml Cup PO Q2H PRN PRN Albuterol Sulfate 2 puff 09/06/21 13:47 Albuterol Hfa 8 Gm 60 Puff Inh IH Q4H PRN PRN Ammonium Lactate 0 gm 09/06/21 20:00 09/06/21 21:30 Lachydrin 12% Lotion 225 Gm Btl TP 1 applic BID RENITA Administration Aspirin 81 mg 09/07/21 08:30 09/07/21 08:27 Aspirin E.C. 81 Mg Tabec PO Not Given DAILY RENITA Carbidopa/Levodopa 1 tab 09/06/21 22:00 09/06/21 21:30 Carbidopa 25/Levodopa 100 Cr Tabcr PO 1 tab HS RENITA Administration Carbidopa/Levodopa 1 tab 09/07/21 08:00 09/07/21 08:29 Carbidopa 25/Levodopa 100 Tab PO 1 tab TID@0800,1100,1500 RENITA Administration Device 1 each 09/06/21 14:00 Inhaler, Assist Device DIRECTED [facility] Dimethicone/Zinc Oxide 0 gm 09/06/21 13:26 Harry Protect Cream 142 Gm Tube TP PRN PRN Docusate Sodium 100 mg 09/06/21 13:26 Docusate Sodium 100 Mg Cap PO TID PRN PRN Docusate Sodium 200 mg 09/07/21 08:30 09/07/21 08:27 Docusate Sodium 100 Mg Cap PO Not Given DAILY [facility] Heparin Sodium (Porcine) 5,000 units 09/06/21 18:00 09/07/21 05:21 Heparin 5,000 Units/Ml Vial SC 5,000 units Q12H RENITA Administration Hydromorphone HCl 0.5 mg 09/06/21 17:48 09/07/21 03:40 Hydromorphone 2 Mg/Ml Vial IVP 0.5 mg Q2H PRN PRN Administration Sodium Chloride 500 mls @ 0 mls/hr 09/06/21 13:26 09/06/21 20:45 Saline 500ml Bag IV 0 mls/hr PRN PRN Infusion As Directed Cefepime HCl 1 gm/ Sodium 50 mls @ 100 mls/hr 09/06/21 20:00 09/07/21 04:30 Chloride IVPB Infused Q8H [facility] Infusion IV Miscellaneous Supplies 1 each 09/06/21 13:30 Iv Access IV DIRECTED [facility] Magnesium Hydroxide 30 ml 09/06/21 13:26 Milk Of Magnesia 30 Ml Cup PO DAILY PRN PRN Omeprazole 20 mg 09/07/21 07:30 09/07/21 08:26 Omeprazole 20 Mg Capcr PO 20 mg DAILY@0730 RENITA Administration Ondansetron HCl 4 mg 09/06/21 16:23 Ondansetron O.D.T. 4 Mg Tabef PO Q8H PRN PRN nausea Prednisone 40 mg 09/07/21 08:30 09/07/21 08:26 Prednisone 20 Mg Tab PO 40 mg DAILY RENITA Administration Quetiapine Fumarate 25 mg 09/06/21 22:00 09/06/21 21:31 Quetiapine 25 Mg Tab PO 25 mg HS RENITA Administration Simvastatin 10 mg 09/06/21 22:00 09/06/21 21:31 Simvastatin 10 Mg Tab PO 10 mg HS RENITA Administration Sodium Chloride 0 ml 09/06/21 13:26 09/07/21 03:41 Normal Saline Flush 10 Ml Syr IVP 10 ml PRN PRN Administration Tiotropium Shoshone 2 puff 09/07/21 08:30 09/07/21 07:16 Tiotropium Shoshone-Respimat 10 Puff Inh IH 2 puffs DAILY RENITA Administration PFSH Active Problems Active Problems: Problem Status Onset Code Respiratory distress R06.03 Encounter for hospice care discussion Z71.89 Discharge planning issues Z02.9 DVT prophylaxis Z29.9 Pleural effusion J90 Shortness of breath R06.02 Caregiver stress Z63.6 Fecal incontinence R15.9 Hemiparesis of right dominant side G81.91 Goals of care, counseling/discussion Z71.89 Family dysfunction Z63.9 Chronic kidney disease N18.9 Hyperlipidemia E78.5 Impairment of speech discrimination H93.299 Sensorineural hearing loss, bilateral H90.3 Impaired mobility and ADLs Z74.09, Z78.9 Profound hearing loss H91.90 Labile blood pressure R09.89 [place] [facility] care proxy on file DNI (do not intubate) Z78.9 DNR (do not resuscitate) Z66 POLST (Physician Orders for Life-Sustaining Treatment) Z78.9 Palliative care patient Z51.5 Frequent falls R29.6 Episode of unresponsiveness R41.89 Anemia D64.9 Hypokalemia E87.6 Hematuria R31.9 Spells of decreased attentiveness R68.89 MGUS (monoclonal gammopathy of unknown significance) D47.2 Essential hypertension I10 Parkinson disease G20 Essential tremor G25.0 Orthostatic hypotension I95.1 Memory loss R41.3 REM sleep behavior disorder G47.52 Thrombocytopenia D69.6 Constipation K59.00 Anemia D64.9 Visual hallucinations R44.1 CKD (chronic kidney disease) N18.9 Vertigo R42 Generalized weakness R53.1 Nausea R11.0 Status post AAA (abdominal aortic aneurysm) repair Z98.890, Z86.79 Syncope R55 Hearing loss H91.90 Bundle branch block I45.4 Actinic keratosis L57.0 Medical History Medical History Cataract s/p surgery 10/2002 and 12/2002 Essential hypertension (09/25/13) Hyperlipidemia (06/20/03) Monoclonal gammopathy present on serum protein electrophoresis [facility] [place] 01[place]2020 Dr. La Villafuerte:skeletal survey ordered/free light chains and quantitative Ig./ fup 3 months Smoker 50 year pack history Surgical History Surgical History Extraction of cataract 10/2002 History of tonsillectomy and adenoidectomy Tobacco Smoking/Tobacco Use Status: Never Passive smoking exposure: Yes Second hand exposure: No Counseling given: provider counseling Alcohol Alcohol Intake: never Substance Use Substance use: Never Vital Signs and Lab Results Vital Signs Most Recent Vital Signs in EMR: Most Recent Vital Signs Temp Pulse Resp BP Pulse Ox 36.8 C 84 20 163/96 H 98 09/07/21 11:58 09/07/21 11:58 09/07/21 11:58 09/07/21 11:58 09/07/21 11:58 Lab Results Result Diagrams: 09/07/21 06:30 09/07/21 06:30 Blood Type / Crossmatch: No Data to Display Complete Blood Count: White Blood Count 9.50 10^3/uL (4.4-10.8) 09/07/21 06:30 09/07/21 Red Blood Count 4.54 10^6/uL (4.36-5.78) 09/07/21 06:30 09/07/21 Hemoglobin 13.1 g/dL (13.5-17.5) L 09/07/21 06:30 09/07/21 Hematocrit 41.4 % (40.0-50.0) 09/07/21 06:30 09/07/21 Platelet Count 125 10^3/uL (130-400) L 09/07/21 06:30 09/07/21 Complete Metabolic Panel: Sodium Level 140 mmol/L (136-145) 09/07/21 06:30 09/07/21 Potassium Level 4.1 mmol/L (3.5-5.1) 09/07/21 06:30 09/07/21 Chloride Level 105 mmol/L (98-107) 09/07/21 06:30 09/07/21 Carbon Dioxide Level 27.3 mmol/L (21.0-32.0) 09/07/21 06:30 09/07/21 Blood Urea Nitrogen 61 mg/dL (7-18) H 09/07/21 06:30 09/07/21 Creatinine 1.9 mg/dL (0.70-1.30) H 09/07/21 06:30 09/07/21 Estimated GFR/1.73 m2 34.11 (mL/min/1.73m2) 09/07/21 06:30 09/07/21 Magnesium Level 2.8 mg/dL (1.8-2.4) H 09/07/21 06:30 09/07/21 Calcium Level 8.3 mg/dL (8.5-10.1) L 09/07/21 06:30 09/07/21 Albumin 2.8 g/dL (3.4-5.0) L 09/06/21 10:00 09/06/21 Glucose Level 136 mg/dL (74-106) H 09/07/21 06:30 09/07/21 Liver Function Panel: Alanine Aminotransferase (ALT/SGPT) 7 U/L (16-63) L 09/06/21 10:00 09/06/21 Aspartate Amino Transf (AST/SGOT) 19 U/L (15-37) 09/06/21 10:00 09/06/21 Coagulation Panel: No Data to Display Cardiac Panel: Troponin I < 50 ng/L (<or=60) 09/06/21 CZ-Hkb-[id number]-Type Natriuretic Peptide 1450 pg/mL (<300) H 09/06/21 Arterial Blood Gas: No Data to Display Venous Blood Gas: No Data to Display Pancreas Panel: No Data to Display Thyroid Panel: No Data to Display Infectious Disease: Coronavirus (COVID-19)(PCR) Negative (Negative) 09/06/21 12:15 09/06/21 Coronavirus 2019 Source Nasal/Nares 09/06/21 12:15 09/06/21 Blood Cultures: No Data to Display Toxicology Panel: No Data to Display Imaging and Studies Imaging and Studies Study information below may be from another EMR and interpreted by another provider. Please see original notes in EMR for more complete details. EKG Summary: Exam: Resting ECG Reason for Exam: SOB Patient Location: E HR:79 bpm ECG Measurements Heart Rate 79 AXIS UT 169 P 75 QRSd 68 QRS 17 QT 349 T262 QTc 401 Conclusion Sinus rhythm...normal P axis, V-rate 60- 99 Probable LVH with secondary repol abnrm...multiple LVH criteria I have reviewed and I agree with the emergency room physician's ECG interpretation. Carotid Artery Summary:: IMPRESSION: No evidence for hemodynamically significant carotid stenosis. Criteria for Carotid Stenosis: Normal: ICA PSV <125 cm/s no plaque or intimal thickening is visible. <50% stenosis: ICA PSV <125 cm/s and plaque or intimal thickening is visible. 50-69% stenosis: ICA PSV is 125-250 cm/s and plaque is visible. >70% stenosis to near occlusion: ICA PSV >250 cm/s with visible plaque and luminal narrowing. Anesthesia Assessment and Plan Anesthesia History Personal History: No History of Anesthesia Complications Family History: No Family History of Anesthesia Complications Exercise Tolerance Exercise Tolerance: Metabolic Equivalents<4 Cardiac & Pulmonary Exam Cardiac Exam: Normal S1/S2 Heart Sounds Pulmonary Exam: Wheezing Present, Rhonchi Present and Rales Present Implantable Cardiac Device Does patient have a Pacemaker or an ICD?: No Airway Exam Known Difficult Airway: No Mallampati Class: 2 Mouth Opening: Normal (> 3cm) Thyromental Distance: Greater than 3 cm Facial Hair: Full Riggs Neck Range of Motion: Full ROM Neck Circumference: Normal Teeth Condition: Generalized Poor Dentition ASA Classification ASA Score: ASA 4 Emergency Case?: No NPO Status NPO Status: NPO Clears >2 hours, Solids >8 hours Anesthesia Plan Resuscitation Status: DNR Maintained Throughout Perioperative Period Anesthesia Technique: MAC Anesthesia Airway Planned: Natural Airway Monitors Used: Standard Monitors
[2021-09-07] MEDS: Lactated Ringers 1,000 ML 30 ML IV (12:30)
[2021-09-07] MEDS: Bupivacaine 0.25% Pres-Free 30 ML VIAL (13:04)
[2021-09-07 13:20] LABS: Amylase, BF 40 U/L; Fluid Type PLEURAL
[2021-09-07 13:22] LABS: Fluid Type PLEURAL; Protein,Total, BF 3.3 g/dL
[2021-09-07] MEDS: Bupivacaine LIPOSOME/PF 133 MG/10 ML VIAL IJ (13:22)
--- NOTE | 2021-09-07 13:28 | DI.RAD_ITS ---
Exam(s) RF LINE PLACEMENT OR EXAM: RF LINE PLACEMENT OR CLINICAL HISTORY: Pleural effusion TECHNIQUE: 2D and realtime digital imaging was performed. CONTRAST MATERIAL: Refer to procedure report. COMPARISON: No exams were available for comparison FINDINGS: Fluoroscopy was provided for Dr. Wynne during the performance of a line placement. Please refer t o the procedure report for complete details. Ka,r=1.11 mGy IMPRESSION: RADIATION DOSE DELIVERED:
--- NOTE | 2021-09-07 13:49 | DI.RAD_ITS ---
Exam(s) XR PORTABLE CHEST AP POST LINE EXAM: XR PORTABLE CHEST AP POST LINE CLINICAL HISTORY: POST OP PLUERAL CATHETER PLACEMENT TECHNIQUE: 2D digital imaging was performed of the chest. One image was obtained. An AP view was ob tained. COMPARISON: CR XR PORTABLE CHEST AP from 09/06/2021 FINDINGS: MEDIASTINUM: Normal. HEART: Normal. PULMONARY VASCULATURE: Normal. LUNGS: Please see below for complete details. The left lung is relatively clear. No pleural effusio n or pneumothorax is identified. PLEURAL SPACE: There has been interval placement of a new right chest tube. The chest tube loops wit h the tip directed laterally in the upper lung field. There has been an increase in size of the righ t pneumothorax which now occupies probably a quarter of the right hemithorax. There is atelectasis o f the right lung. There is a small amount of air seen in the subcutaneous tissues along the right la teral chest wall. BONE:Within normal limits for the patient's age. OTHER FINDINGS:Normal. IMPRESSION: 1. Interval placement of a new right chest tube. The tip of the tube is projected superior laterally . 2. Interval increase in size of the right pneumothorax which now occupies a quarter of the right marvin thorax. 3. Atelectasis of the right lung. Underlying pulmonary infiltrates are also noted. DATA REPOSITORY: RADIATION DOSE DELIVERED:
--- NOTE | 2021-09-07 14:05 | W.ANESPOSTOP ---
Postoperative Evaluation Date, Time and Location Date Performed: 09/07/21 Time Performed: 14:05 Patient Location: PACU Vital Signs Most Recent Imported Vital Signs: Most Recent Vital Signs Temp Pulse Resp BP Pulse Ox 36.4 C L 86 20 133/87 95 09/07/21 13:50 09/07/21 13:50 09/07/21 13:50 09/07/21 13:50 09/07/21 13:50 Pain Score Most Recent Pain Score: Most Recent Pain Score Pain Level 0 09/07/21 07:27 Assessment Mental Status: Arousable with meaningful communication Airway and Respiratory Function: Patent airway with normal (patient baseline) respiratory exam Cardiovascular Function: Hemodynamically Stable Hydration Status: Adequately Hydrated Nausea & Vomiting: No Nausea or Vomiting Pain: Pt. Denies Any Pain Peripheral Nerve Block: Patient did not receive a nerve block
--- NOTE | 2021-09-07 14:09 | W.PM.OP ---
Date of service: 09/07/21 Time of Service: 14:09 Operative Note Operative Note DATE OF PROCEDURE: 09/07/21 PRE-OP DIAGNOSIS: pleural effusions/Parkinson's/right sided paralysis POST-OP DIAGNOSIS: same PROCEDURE: pleurx R chest SURGEON: Sangita Wynne Refer to Anesthesia Record ESTIMATED BLOOD LOSS: 2 Implants: see RN notes for lot # Procedure Description: The patient has developed a recurrent right pleural effusion. In an effort to palliate there respiratory symptoms, the patient was referred for a PleurX catheter placement for home drainage. The patient and family understood the risks and possible complications of the procedure including but not limited to: bleeding, infection, pneumonia, blood clots, pneumothorax/tension pnemothorax, re-expansion pulmonary edema, subcutaneous emphysema, tube clog, ?chronic pain or numbness, damage to lung or pleura, air leak, respiratory distress with inadvertent removal, anesthesia, and other unforetold complications. DESCRIPTION OF PROCEDURE:?The operative site was marked in pre-Op.? ?The patient was brought to the operating room and placed supine on the operating table. Intravenous sedation was administered per the department of anesthesia. The patient was then positioned with the head up and a roll under the right shoulder. The previously placed pigtail catheter was removed and a 2-0 prolene was used to close the incision. The right chest and upper abdomen were prepped and draped in the usual sterile fashion using a chloroprep scrub solution. Lidocaine 1% was used to infiltrate two areas; one in the right upper quadrant where the tube would exit and the other along the anterior axillary line in the seventh intercostal space. A small counterincision was made in the right upper quadrant area. Through the anterior axillary line area, the pleural space was accessed by Seldinger technique. The counterincision was made around the guidewire and then the PleurX catheter was tunneled from the right upper quadrant small incision to the one overlying the ribs. A sheath introducer was then passed over the wire and then the PleurX catheter was placed through the sheath introducer. There was good return of fluid. 20cc of serous fluid was withdrawn slowly as the small counterincision was closed with a 2-0 prolene stitch. The catheter was capped off, and sterile dressings were applied. The patient tolerated the procedure well without any complications. The patient was transferred to the recovery room in stable condition. Sponge and needle count was correct at the end of the case.? Chest Xray is pending at this time. ?
--- NOTE | 2021-09-07 16:00 | DI.RAD_ITS ---
Exam(s) XR PORTABLE CHEST AP POST LINE EXAM: XR PORTABLE CHEST AP POST LINE CLINICAL HISTORY: repeat for PTX TECHNIQUE: 2D digital imaging was performed of the chest. One image was obtained. An AP view was ob tained. COMPARISON: CR XR PORTABLE CHEST AP POST LINE from 09/07/2021 FINDINGS: MEDIASTINUM: Normal. HEART: Normal. PULMONARY VASCULATURE: Normal. LUNGS: The right chest tube remains looped in the right hemithorax with the tip of the catheter proje cted laterally. There is a stable right pneumothorax. There is stable collapse of the right lung. There is slight interval increase in the amount of subcutaneous emphysema along the right lateral laurence st wall. The left lung is unchanged PLEURAL SPACE: No pleural effusion or pneumothorax. BONE:Within normal limits for the patient's age. OTHER FINDINGS:Normal. IMPRESSION: 1. Stable pneumothorax and right lung collapse. 2. Right thoracostomy tube in place as described above. DATA REPOSITORY: RADIATION DOSE DELIVERED:
--- NOTE | 2021-09-07 16:16 | PGE_ITS ---
Date of Service Date of service: 09/07/21 Time of Service: 16:16 Assessment and Plan Assessment and plan (1) Pleural effusion: Status: Acute Assessment and plan: S/p chest tube with evacuation of >2L of straw colored fluid. Now s/p pleurex catheter. Fluid cultures are pending. Continue empiric cefepime; continue steroids, spiriva, prn albuterol. Unable to go home today due to O2 requirement and O2 not being delivered until tomorrow at 10 am. (2) Pneumothorax on right: Status: Acute Assessment and plan: Being currently addressed by general surgery. Chest tube in place. 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 (5) Parkinson disease: Status: Chronic Assessment and plan: Continue home sinemet. (6) Essential hypertension: Status: Chronic Assessment and plan: Resume amlodipine. (7) DVT prophylaxis: Status: Acute Assessment and plan: SC heparin (8) Discharge planning issues: Status: Acute Assessment and plan: DNR/DNI Plan is for discharge home on hospice after insertion of pleurex catheter tomorrow. Discussed with Sanna Delarosa, JOAO, and Dr Wynne. Subjective Subjective Interval history since last seen: Mr Whitmore is s/p pleurex catheter placement. He does have a pneumothorax now and is requiring O2. He is not going to be able to go home tonight because O2 cannot delivered until 10 am tomorrow am. He is ok with this. Denies dizziness, chest pain, shortness of breath while on 4L of O2, nausea. Exam Narrative Exam Narrative: General: Pleasant frail elderly male who is [place], laying in bed on his L side, more tachypenic today, A&Ox2 HEENT: EOMI, MMM Cardiovascular: RRR, +rub Lungs: Pleural rub on R; pleurex catheter inserted anteriorly on R Gastrointestinal: soft, nontender, nondistended Extremities: no edema BLEs Objective Last Vital Signs Temp 35.6 C L 09/07/21 14:40 Pulse 79 09/07/21 14:40 Resp 36 H 09/07/21 14:40 BP 137/89 09/07/21 14:40 Pulse Ox 91 L 09/07/21 14:40 Laboratory Results - last 24 hr 09/06/21 09/06/21 09/06/21 11:40 11:40 11:40 WBC RBC Hgb Hct MCV MCH MCHC RDW Plt Count MPV Immature Gran % Neutrophils % Lymphocytes % Monocytes % Eosinophils % Basophils % Nucleated RBC % Absolute Neutrophils Absolute Lymphocytes Absolute Monocytes Absolute Eosinophils Absolute Basophils Sodium Potassium Chloride Carbon Dioxide Anion Gap BUN Creatinine Estimated GFR/1.73 m2 Glucose Calcium Magnesium Fluid Type PLEURAL PLEURAL Fluid Glucose 123 Fluid Total Protein 3.3 Fluid LDH Fluid Amylase 40 09/06/21 09/07/21 09/07/21 11:41 06:30 06:30 WBC 9.50 RBC 4.54 Hgb 13.1 L Hct 41.4 MCV 91.2 MCH 28.9 MCHC 31.6 L RDW 15.8 H Plt Count 125 L MPV 9.8 Immature Gran % 0.4 Neutrophils % 90.6 Lymphocytes % 5.1 Monocytes % 3.8 Eosinophils % 0.0 Basophils % 0.1 Nucleated RBC % 0 Absolute Neutrophils 8.61 H Absolute Lymphocytes 0.48 L Absolute Monocytes 0.36 Absolute Eosinophils 0.00 Absolute Basophils 0.01 Sodium 140 Potassium 4.1 D Chloride 105 Carbon Dioxide 27.3 Anion Gap 7.7 BUN 61 H D Creatinine 1.9 H Estimated GFR/1.73 m2 34.11 Glucose 136 H Calcium 8.3 L Magnesium 2.8 H Fluid Type PLEURAL Fluid Glucose Fluid Total Protein Fluid LDH 302 Fluid Amylase
[2021-09-07] MEDS: Acetaminophen 325 MG TAB PO (17:02)
[2021-09-07] MEDS: Normal Saline 500 ML 30 ML IV (17:04)
--- NOTE | 2021-09-07 17:15 | DI.RAD_ITS ---
Exam(s) XR PORTABLE CHEST AP EXAM: XR PORTABLE CHEST AP CLINICAL HISTORY: tachycardia, increasing ox needs TECHNIQUE: 2D digital imaging was performed of the chest. One image was obtained. An AP view was ob tained. COMPARISON: CR XR PORTABLE CHEST AP POST LINE from 09/07/2021 FINDINGS: MEDIASTINUM: Normal. HEART: Normal. PULMONARY VASCULATURE: Normal. LUNGS: Clear. PLEURAL SPACE: No pleural effusion. No left pneumothorax. BONE:Within normal limits for the patient's age. OTHER FINDINGS:The right chest tube has been repositioned. There has been reinflation of the right l dominique. There does appear to be a small right apical pneumothorax present. Airspace opacities are agai n seen in the right lung. Increased subcutaneous air seen along the right chest wall. IMPRESSION: 1. Repositioning of the right chest tube with re-expansion of the right lung. There is a tiny right apical pneumothorax which persists. 2. Infiltrate seen in the right lung. This may represent pneumonia or atelectasis. 3. Increased subcutaneous emphysema along the right chest wall. DATA REPOSITORY: RADIATION DOSE DELIVERED:
--- NOTE | 2021-09-07 17:54 | W.PM.PROGNOT ---
Date of Service Date of service: 09/07/21 Time of Service: 17:55 Assessment and Plan Assessment and plan (1) Hypoxia: Status: Acute (2) Pneumothorax on right: Status: Resolved Assessment and plan: Patient did have a pneumothorax after the catheter was placed. The catheter was hooked up to suction and repeat chest x-ray shows no pneumothorax at this time. There is a small amount of subcutaneous air after removing the pigtail. There is no fluid. Patient is being discharged home tomorrow to hospice. He does have 2 Vacutainer bottles to go home with. He is requiring 4 L of oxygen to maintain his saturations. He is also having some tachycardia. I would defer this to the hospitalist and how they want to treat this further- I did d/w Dr. Gamez. He is a DNR/DNI. And he will be going on hospice 09/08. 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 (17) Essential hypertension: Status: Chronic (18) Parkinson disease: Status: Chronic (19) Memory loss: Status: Chronic (20) Orthostatic hypotension: Status: Acute (21) REM sleep behavior disorder: Status: Acute Objective Last Vital Signs Temp 35.6 C L 09/07/21 14:40 Pulse 79 09/07/21 14:40 Resp 36 H 09/07/21 14:40 BP 137/89 09/07/21 14:40 Pulse Ox 91 L 09/07/21 14:40 Laboratory Results - last 24 hr 09/06/21 09/06/21 09/06/21 11:40 11:40 11:40 WBC RBC Hgb Hct MCV MCH MCHC RDW Plt Count MPV Immature Gran % Neutrophils % Lymphocytes % Monocytes % Eosinophils % Basophils % Nucleated RBC % Absolute Neutrophils Absolute Lymphocytes Absolute Monocytes Absolute Eosinophils Absolute Basophils Sodium Potassium Chloride Carbon Dioxide Anion Gap BUN Creatinine Estimated GFR/1.73 m2 Glucose Calcium Magnesium Fluid Type PLEURAL PLEURAL Fluid Glucose 123 Fluid Total Protein 3.3 Fluid LDH Fluid Amylase 40 09/06/21 09/07/21 09/07/21 11:41 06:30 06:30 WBC 9.50 RBC 4.54 Hgb 13.1 L Hct 41.4 MCV 91.2 MCH 28.9 MCHC 31.6 L RDW 15.8 H Plt Count 125 L MPV 9.8 Immature Gran % 0.4 Neutrophils % 90.6 Lymphocytes % 5.1 Monocytes % 3.8 Eosinophils % 0.0 Basophils % 0.1 Nucleated RBC % 0 Absolute Neutrophils 8.61 H Absolute Lymphocytes 0.48 L Absolute Monocytes 0.36 Absolute Eosinophils 0.00 Absolute Basophils 0.01 Sodium 140 Potassium 4.1 D Chloride 105 Carbon Dioxide 27.3 Anion Gap 7.7 BUN 61 H D Creatinine 1.9 H Estimated GFR/1.73 m2 34.11 Glucose 136 H Calcium 8.3 L Magnesium 2.8 H Fluid Type PLEURAL Fluid Glucose Fluid Total Protein Fluid LDH 302 Fluid Amylase
[2021-09-07] MEDS: ACETAMINOPHEN 1,000 MG/100 ML BTL 400 MG IVPB (23:42)
[2021-09-08] MEDS: LORazepam 2 MG/ML VIAL 0.5 MG IVP (00:10)
[2021-09-08] MEDS: CEFEPIME 1 GM in Normal Saline 50 ML IVPB ×2 (00:10→08:06)
[2021-09-08 03:15] VITALS: BP 161/92; PULSE 72; RESP 14; TEMP 36.4; O2SAT 95
[2021-09-08] MEDS: ACETAMINOPHEN 1,000 MG/100 ML BTL 400 MG IVPB (05:49)
[2021-09-08] MEDS: Normal Saline Flush 10 ML SYR IVP ×3 (05:49→10:47)
[2021-09-08] MEDS: Tiotropium Bromide-Respimat 10 PUFF INH 2 PUFF IH (07:36)
[2021-09-08 08:05] VITALS: O2SAT 91
[2021-09-08] MEDS: MORPHine 2 MG/ML SYR IVP ×2 (08:07→10:48)
[2021-09-08] MEDS: amLODIPine 10 MG TAB PO (08:07)
[2021-09-08] MEDS: Lachydrin 12% LOTION 225 GM BTL TP (08:07)
[2021-09-08] MEDS: Omeprazole 20 MG CAPCR PO (08:08)
[2021-09-08] MEDS: Docusate Sodium 100 MG CAP 200 MG PO (08:08)
[2021-09-08] MEDS: predniSONE 20 MG TAB 40 MG PO (08:08)
--- NOTE | 2021-09-08 08:30 | DI.RAD_ITS ---
Exam(s) XR PORTABLE CHEST AP EXAM: XR PORTABLE CHEST AP CLINICAL HISTORY: ptx post procedure TECHNIQUE: 2D digital imaging was performed of the chest. One image was obtained. An AP view was ob tained. COMPARISON: CR XR PORTABLE CHEST AP from 09/07/2021 FINDINGS: MEDIASTINUM: Normal. HEART: Normal. PULMONARY VASCULATURE: Normal. LUNGS: Increased opacity in the right lung. This may represent worsening pneumonia or atelectasis. The left lung is unchanged with mild interstitial disease particularly inferiorly. PLEURAL SPACE: No left pneumothorax. No pleural effusion. BONE:Within normal limits for the patient's age. OTHER FINDINGS:The right chest tube is again seen in the right lung apex. There is a persistent smal l right apical pneumothorax. There is again seen a subcutaneous emphysema along the right lateral ch est wall. IMPRESSION: DATA REPOSITORY: RADIATION DOSE DELIVERED:
[2021-09-08] MEDS: Carbidopa 25/Levodopa 100 TAB PO ×2 (08:38→10:50)
--- NOTE | 2021-09-08 09:23 | W.PM.PROGNOT ---
Date of Service Date of service: 09/08/21 Time of Service: 09:23 Assessment and Plan Assessment and plan (1) Pleural effusion: Status: Acute Assessment and plan: -PTX from procedure is resolved with -Patient is stable for discharge today He has 2 bottles to go home with.-Further dressing changes and supplies per hospice (2) Shortness of breath: Status: Acute (3) Fecal incontinence: Status: Acute (4) Hemiparesis of right dominant side: Status: Chronic (5) Family dysfunction: Status: Chronic (6) Chronic kidney disease: Status: Chronic (7) Hyperlipidemia: Status: Acute (8) Impairment of speech discrimination: Status: Acute (9) Sensorineural hearing loss, bilateral: Status: Acute (10) Impaired mobility and ADLs: Status: Acute Exam Chest Other: -Dressings are clean dry and intact. -Minimal crepitus -Chest x-ray reviewed and does show that he did have overall bleeding and trauma to the lung from the wire placement. Patient was off suction for at least an hour before the x-ray and there is no pneumo. He had about 200 cc of serous drainage overnight. The suction was removed. Objective Last Vital Signs Temp 36.4 C L 09/08/21 03:15 Pulse 72 09/08/21 03:15 Resp 14 09/08/21 03:15 BP 161/92 H 09/08/21 03:15 Pulse Ox 91 L 09/08/21 08:05 Laboratory Results - last 24 hr 09/06/21 09/06/21 09/06/21 11:40 11:40 11:40 Fluid Type PLEURAL PLEURAL Fluid Glucose 123 Fluid Total Protein 3.3 Fluid LDH Fluid Amylase 40 09/06/21 11:41 Fluid Type PLEURAL Fluid Glucose Fluid Total Protein Fluid LDH 302 Fluid Amylase
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
--- NOTE | 2021-09-08 11:02 | CMDISCH_ITS ---
- If Service Date Differs Date of service: 09/08/21 Time of Service: 11:02 LACE Index Scoring Tool - Questions: Length of Stay (in days): 2 Acuity (Admit via E.D.?): Yes Comorbidities: Dementia, Connective Tissue Disease, Liver or Renal Disease E.D. Visits: 3 - Answers: Total Score: 13 Risk of Readmission: High Risk Care Management Discharge Reason for Hospitalization: Pleural Effusion Discharge Plan: Discharge home with Hospice services via EMS. Home O2 and hospital bed was delivered by [facility]. Follow up with hospice providers and discharge plan of care as prescribed. Patient/Family Education Needs: Review discharge instructions, limitations, medications and plan to follow up with Hospice providers and discharge plan of care as prescribed. ask me three. Services Needed at Discharge: Home Health Care Services ([facility]. CM notified [facility]. ), Transportation ([facility]ia [facility], arranged by [place])
[2021-10-04 07:45] LABS: Fungus Smear No Fungi Seen
== END 2021-09-08 12:29 | disposition home or self-care (01) | DRG 187 ==
LOC: ER 13:44 → MS 09-07 08:05
PROVIDERS: Student in an Organized Health Care Education/Training Program; Surgery; Admitting Provider Internal Medicine; Emergency Provider Physician Assistant; PCP Family Medicine; Visit Provider Internal Medicine
PROC: 0W9930Z Drainage of Right Pleural Cavity with Drainage Device, Percutaneous Approach (ICD-10-PCS; CPT 32551; principal; 2021-09-07 13:00)
DX: J90 Pleural effusion, not elsewhere classified (principal); G81.91 Hemiplegia, unspecified affecting right dominant side; J93.83 Other pneumothorax; D47.2 Monoclonal gammopathy; N18.9 Chronic kidney disease, unspecified; D69.6 Thrombocytopenia, unspecified; G20 Parkinson's disease; I12.9 Hypertensive chronic kidney disease with stage 1 through stage 4 chronic kidney disease, or unspecified chronic kidney disease; J44.9 Chronic obstructive pulmonary disease, unspecified; E78.5 Hyperlipidemia, unspecified; R15.9 Full incontinence of feces; H90.3 Sensorineural hearing loss, bilateral; R29.6 Repeated falls; D64.9 Anemia, unspecified; R41.3 Other amnesia; K59.00 Constipation, unspecified; R53.1 Weakness; F17.210 Nicotine dependence, cigarettes, uncomplicated; R09.02 Hypoxemia; Z51.5 Encounter for palliative care
CPT/HCPCS: 32550; 32551; 36410; 36415; 71045; 71250; 77001; 80048; 80053; 84145; 87040; 87102; 87206; 87635; 87637; 93005; 94640; 96365; 96375; 99212; 99291; 81373; 82150; 83615; 83735; 83880; 83986; 84157; 84484; 85025; 87070; 87075; 87205; 88104; 88189; 89051; 93010; 99220; 99233; 99238; G0378; J0131; J1644; J2060; J2270; J7512